=== PATIENT | female | born 1945 | race Caucasian/White ===

== ENCOUNTER → 2017-07-07 15:30 | Outpatient (CLI) | payer OTHER, MEDICARE, SELFPAY ==
--- NOTE | 2017-07-07 15:36 | XR_ITS ---
EXAM: XR lumbar spine min 4V HISTORY: ITS.REASON: low back pain ORDERING PHYSICIAN: Latricia Pepe PATIENT AGE: 72 years COMPARISON: None FINDINGS: There is mild lumbar scoliosis convex left. There is 5 mm left lateral translation of L3 on L4 with mild degenerative disc disease at L3-L4. Mild facet arthritic changes are present at L4-5 and L5-S1. The SI joints have an unremarkable appearance. No fracture or dislocation. No lytic or blastic change. IMPRESSION: Lumbar scoliosis with degenerative disc disease at L3-L4 mild facet arthritic changes at L4-5 and L5-S1
--- NOTE | 2017-07-07 15:36 | XR_ITS ---
XR pelvis 1-2V HISTORY: Bilateral hip pain ITS.REASON: bilateral hip pain ORDERING PHYSICIAN: Latricia Pepe PATIENT AGE: 72 years COMPARISON: None FINDINGS: No fracture or dislocation is evident. No significant degenerative change. No lytic or blastic change. The SI joints have an unremarkable appearance. Unremarkable soft tissues. There are bilateral tubal ligation clips present IMPRESSION: Negative pelvis.
--- NOTE | 2017-07-07 15:36 | XR_ITS ---
EXAM: XR cervical spine min 6V HISTORY: ITS.REASON: neck pain ORDERING PHYSICIAN: Latricia Pepe PATIENT AGE: 72 years COMPARISON: None FINDINGS: Normal alignment. No fracture or dislocation. No lytic or blastic change. Degenerative disc disease is present at C2-C3, C3-C4, C4-C5, and C5-C6 and to a lesser degree at C6-C7. Mild uncovertebral hypertrophy is present with mild foraminal narrowing on the right at C5-C6 and on the left at C3-C4. IMPRESSION: Cervical spondylosis with multilevel degenerative disc disease and uncovertebral hypertrophy as described above
== END ==
PROVIDERS: PCP Nurse Practitioner Family; Visit Provider Nurse Practitioner Family
DX: M54.2 Cervicalgia (principal); R10.2 Pelvic and perineal pain; M54.5 Low back pain
CPT/HCPCS: 72052; 72110; 72170

== ENCOUNTER → 2017-10-20 10:37 | Outpatient (CLI) | payer MEDICARE, SELFPAY ==
[2017-10-20 12:19] LABS: Alanine Aminotransferase 51 U/L (12-78); Albumin Level 3.6 gm/dL (3.4-5.0); Albumin/Globulin Ratio 1.1 (1.1-1.8); Alkaline Phosphatase 95 U/L (46-116); Anion Gap 12.5 mEq/L (5-15); Aspartate Amino Transferase 32 U/L (15-37); Bilirubin,Total 0.4 mg/dL (0.2-1.0); Blood Urea Nitrogen 16 mg/dL (7-18); Calcium 9.6 mg/dL (8.5-10.1); Carbon Dioxide 27 mmol/L (21.0-32.0); Chloride 107 mmol/L (98-107); Chol/HDL Ratio 5.7 (1-3.5); Cholesterol 226 mg/dL (140-200); Creatinine,Serum 0.87 mg/dL (0.55-1.02); Estimated Glomerular Filt Rate 64 ml/min (>60); GFR (African American) 78 ML/MIN (>60); Globulin 3.4 gm/dl (1.3-3.2); Glucose 95 mg/dL (74-106); HDL Cholesterol 40 mg/dL (29-89); LDL Cholesterol 150 mg/dL (0-130); Potassium 4.5 mmoL/L (3.5-5.1); Sodium 142 mmol/L (136-145); Thyroid Stimulating Hormone 1.52 uIU/ml (0.358-3.740); Triglycerides 180 mg/dL (30-200); VLDL Cholesterol 36 mg/dL (0-40)
== END ==
PROVIDERS: Visit Provider Family Medicine
DX: E78.5 Hyperlipidemia, unspecified (principal); E03.9 Hypothyroidism, unspecified
CPT/HCPCS: 36415; 80053; 80061; 84443

== ENCOUNTER → 2018-03-02 15:32 | Outpatient (CLI) | payer MEDICARE, SELFPAY ==
--- NOTE | 2018-03-02 15:36 | XR_ITS ---
XR chest 2V HISTORY: ITS.REASON: COUGH ORDERING PHYSICIAN: Tyson Sanchez MD PATIENT AGE: 72 years COMPARISON: 06/25/2016 FINDINGS: The cardiomediastinal silhouette and pulmonary vascularity are within normal limits. The lungs are clear without infiltrates, suspicious nodules, or pleural effusions. There is mild thoracic scoliosis convex right of lumbar scoliosis convex left. . No acute bony anomalies. Degenerative changes are present in the upper thoracic spine. IMPRESSION: No acute finding
== END ==
PROVIDERS: PCP Family Medicine; Visit Provider Family Medicine
DX: R05 Cough (principal)
CPT/HCPCS: 71046

== ENCOUNTER → 2018-03-30 12:42 | Outpatient (CLI) | payer MEDICARE, SELFPAY ==
--- NOTE | 2018-03-30 | XR_ITS ---
XR shoulder LT min 2V HISTORY: ITS.REASON: LEFT SHOULDER PAIN ORDERING PHYSICIAN: Tyson Sanchez MD PATIENT AGE: 72 years Comparison: None FINDINGS: No fracture or dislocation. No lytic or blastic change. There is normal mineralization. The joint spaces are well-preserved. No significant degenerative/arthritic changes. No erosive changes evident. IMPRESSION: Negative, no acute finding
== END ==
PROVIDERS: PCP Family Medicine; Visit Provider Family Medicine
DX: M25.512 Pain in left shoulder (principal)
CPT/HCPCS: 73030

== ENCOUNTER → 2018-04-23 16:39 | Outpatient (CLI) | payer MEDICARE, SELFPAY ==
--- NOTE | 2018-04-23 16:45 | XR_ITS ---
EXAM: XR cervical spine 5V HISTORY: Neck pain with limited range of motion ITS.REASON: pain in left shoulder ORDERING PHYSICIAN: Tyson Sanchez MD PATIENT AGE: 72 years COMPARISON: None FINDINGS: Multilevel degenerative disc disease is present at C2-C7 worse at the C4 C5 C5 C6 and C6-C7 levels. There are endplate osteophytes in the lower cervical spine. There is mild foraminal narrowing on the right at C5-C6 and on the left at C5-C6. No fracture or dislocation evident. No lytic or blastic change. IMPRESSION: Cervical spondylosis with degenerative disc disease from C4 to C7 and mild foraminal narrowing bilaterally at C5-C6
== END ==
PROVIDERS: PCP Family Medicine; Visit Provider Family Medicine
DX: M54.2 Cervicalgia (principal); M25.512 Pain in left shoulder
CPT/HCPCS: 72050

== ENCOUNTER 2018-05-02 14:00 | Outpatient (RCR) | payer MEDICARE, SELFPAY ==
--- NOTE | 2018-04-26 14:17 | HMH.OTOPEV ---
OT Inpatient Evaluation Rehab OT Outpatient Eval Start: 04/26/18 13:54 Freq: Status: Active Protocol: Document 04/26/18 13:54 RMARSHALZunilda (Rec: 04/26/18 14:[address] [facility] [id number]) Electronically Signed By Umm Bhandari OT 04/26/18 13:54 Outpatient Therapy Subjective History Subjective History Pt is a 72 year old female who reports to therapy for initial evaluation to left shoulder. Pt reports on January 11, 2018 she fell down a flight of steps on her house boat and landed on her left side. Since this accident she has had pain consistently at the left shoulder. Pt also reports having pain in the neck and believes she may have injured the neck in the fall as well. Pt recently had x-rays completed of the neck and is waiting her doctor to call her back for the results. Pt does demonstrate with decreased AROM and strength of left shoulder. Pt will continue to be seen twice a week in order to address these deficits. Chief Complaint Pain Stiff Weakness Symptom Type Ache Throb Sharp Dull Symptoms Relieved By Nothing Symptoms Aggravated By Physical Activity Twisting Lifting Prior Functional Limitations None Current Functional Limitations Reaching Lifting Housework Dressing Driving Sleeping Recreation Activity Symptom Description Constant but Variable Level of pain today (0-10) 3 Pain scale - at its best (0-10) 3 Pain scale - at its worst (0-10) 9 Shoulder/Elbow Eval Shoulder Objective Measurements Shoulder ROM Left Shoulder ROM Limitations Pain Shoulder Abduction Active Range of 60 degrees Motion (degrees) Shoulder Flexion Active Range of Motion 127 degrees (degrees
== END 2018-05-02 14:05 | disposition home or self-care (01) ==
LOC: OT 14:00
PROVIDERS: Visit Provider Family Medicine
DX: M25.512 Pain in left shoulder (principal); M77.9 Enthesopathy, unspecified; M75.52 Bursitis of left shoulder
CPT/HCPCS: 97014; 97110; 97165; G0283

== ENCOUNTER → 2018-10-19 16:56 | Outpatient (CLI) | payer MEDICARE, SELFPAY ==
--- NOTE | 2018-10-19 16:59 | MM_ITS ---
MM Dig screening mamm BI w/CAD ORDERING PHYSICIAN : Tyson Sanchez MD PATIENT AGE: 73 years GENDER: Female COMPARISON: March [id number] INDICATION: ITS.Routine screening mammogram..no hormones. Hysterectomy. Benign left surgical excisional biopsy Family history niece breast cancer age 34 TECHNIQUE: Standard CC and MLO images were obtained. R2 CAD reviewed. Additional MLO nipple profile views bilateral FINDINGS: Mild to moderate residual fibroglandular elements scattered throughout throughout the breast are most notable towards upper outer quadrant bilaterally. RIGHT BREAST:No new areas of significant concern. Areas of minimal nodularity again noted appear recently stable when compared to February 2011 bilateral follow-up one year recommended LEFT BREAST:No significant new findings.:. Follow-up in one year. IMPRESSION: ...... No new areas of significant concern either breast. Stable minor asymmetry. Adequate Stable appearance to minor areas of nodularity bilaterally. Bilateral follow-up in one year recommended. BI-RADS Category: 2 Benign Finding(s) RECOMMENDED FOLLOW-UP: 1YR 1 YEAR FOLLOW-UP (A letter has been sent to the patient regarding results of the study.)
== END ==
PROVIDERS: PCP Family Medicine; Visit Provider Family Medicine
DX: Z12.31 Encounter for screening mammogram for malignant neoplasm of breast (principal)
CPT/HCPCS: 77067

== ENCOUNTER → 2018-11-28 15:15 | Outpatient (CLI) | payer MEDICARE, SELFPAY ==
--- NOTE | 2018-11-28 | CA_ITS ---
PROCEDURE: 2-D M-mode and color Doppler study INDICATIONS FOR THE TEST: Chest pain COPD Heart Murmur Tobacco Smoking Palpitations Fatigue Syncope Edema Hypertension Diabetes Mellitus Rheumatic Fever SOBXDOE Obesity Hyperlipidemia Family History HD Additional History PATIENT INFORMATION HEIGHT: 64 WEIGHT:155 GENDER: Female B/P:130/90 2-D/M-MODE INTERPRETATION: 2-D MEASUREMENTS OBSERVED VALUES IN CMS Right Ventricular Dimension (RVDd) 2.2 Interventricular Septum (Thickness)(IVsd) .8 Left Ventricular Internal Dimensions(LVIDd) 4.8 Left Ventricular Posterior Wall (Thickness)(LVPWd) .8 Aortic Root 3.3 Aortic Cusp Separation 1.8 Left Atrial Dimensions (LAD) 3.3 2D 1. Left atrium is normal size, left ventricle is normal size, left ventricle wall thickness is upper limit of the normal, there is preserved left ventricular systolic function, visually estimated ejection fraction 55% with no regional wall motion abnormality. 2. The right atrium and right ventricle are mildly enlarged with normal contractility. 3. The aortic valve is minimally thickened and fibrosed. 4. The mitral and tricuspid valvular grossly normal. 5. The pulmonic valve is poorly visualized. 6. No significant pericardial effusion noted. DOPPLER INTERROGATION: Doppler interrogation of the aortic, mitral and tricuspid valvular presence of mild mitral and tricuspid regurgitation, tricuspid regurgitation jet velocity is inadequate for calculation of the right ventricular systolic pressure, grade 1 diastolic dysfunction seen without tissue Doppler evidence of raised left atrial pressure. CONCLUSION: 1. Normal left ventricular size, visually estimated ejection fraction 55% with no regional wall motion abnormality. Grade 1 diastolic dysfunction seen without tissue Doppler evidence of raised left atrial pressure. 2. Mildly enlarged ventricle with normal contractility. 3. Mild mitral and tricuspid regurgitation 4. No significant pericardial effusion noted.
== END ==
PROVIDERS: PCP Physician Assistant; Visit Provider Physician Assistant
DX: R06.02 Shortness of breath (principal)
CPT/HCPCS: 93306

== ENCOUNTER → 2018-12-09 12:41 | Outpatient (CLI) | payer MEDICARE, SELFPAY ==
[2018-12-09 13:14] LABS: Blood Urea Nitrogen 22 mg/dL (7-18); Creatinine,Serum 1.06 mg/dL (0.55-1.02); Estimated Glomerular Filt Rate 51 ml/min (>60); GFR (African American) 62 ML/MIN (>60)
--- NOTE | 2018-12-09 13:46 | CT_ITS ---
CT angio chest COMPARISON: None HISTORY: Mid chest pain and some shortness of breath TECHNIQUE: Multiple axial scans obtained from the thoracic inlet the hemidiaphragms after rapid injection of 70 mL of Optiray 350. Sagittal and coronal reformats were evaluated as well. FINDINGS: The lung talbot are well expanded. There is excellent vascular opacification. There is no CT evidence of pulmonary emboli. There is no abnormal superior mediastinal or hilar lymphadenopathy. Cardiac size is normal. There is no evidence of aortic dissection. Lung windows show the lung talbot be clear of infiltrate. There is no pleural fluid. There are mild multilevel degenerative changes of the thoracic spine. IMPRESSION: Negative for PE
== END ==
PROVIDERS: PCP Family Medicine; Visit Provider Internal Medicine Cardiovascular Disease
DX: R00.0 Tachycardia, unspecified (principal); R06.00 Dyspnea, unspecified; R07.9 Chest pain, unspecified; R53.83 Other fatigue; R60.9 Edema, unspecified; R93.1 Abnormal findings on diagnostic imaging of heart and coronary circulation; R94.31 Abnormal electrocardiogram [ECG] [EKG]; R06.09 Other forms of dyspnea; R60.0 Localized edema
CPT/HCPCS: 36415; 71275; 82565; 83880; 84520; Q9967

== ENCOUNTER → 2018-12-19 07:20 | Outpatient (CLI) | payer MEDICARE, SELFPAY ==
--- NOTE | 2018-12-19 07:31 | NM_ITS ---
History:Chest pain, SOB, Palpitations, Fatigue, Family history, Abnormal ECHO Procedure: Patient exercised on Khang protocol 7 minutes, resting heart rate 65 bpm, resting blood pressure 124/60, with exercise maximum heart rate achieve was 114 bpm which is less than 85 % of the maximum predicted heart rate and blood pressure was 140/80. Test was stopped due to shortness of breath, patient denied any complained of chest pain. Patient has adequate exercise capacity achieved 7.7 mets of workload on treadmill, the blood pressure response to exercise was adequate. Patient did not achieve the target heart rate Electrocardiogram: Resting electrocardiogram showed sinus rhythm, with exercise there is less than 1.5mm ST segment depression noted from the baseline EKG. The EKG portion of the exercise Myoview is nondiagnostic as patient did not achieve the target heart rate. Cardias Stress and Resting SPECT images: Cardias Stress and Resting SPECT images were obtained using technetium 99m Myoview 29.7 mCi stress and 9.95 mCi at rest. Gated SPECT further analysis of segmental wall motion and calculation of ejection fraction also done. Cardiac stress and resting SPECT show uniform myocardial activity without segmental perfusion abnormality, the computer derived ejection fraction is over 65% with no regional wall motion abnormality, right ventricle is normal size and contractility. Conclusion: 1. The EKG portion of the exercise Myoview is nondiagnostic as patient didn't achieve the target heart rate, patient has adequate exercise capacity achieved 7.7mets of workload on treadmill the blood pressure response to exercise was adequat. 2. No scintigraphic evidence of reversible ischemia seen, computer derived ejection fraction is over 65% with no regional wall motion abnormality. Right ventricle is normal size and contractility.
--- NOTE | 2018-12-19 07:45 | HMH.ITSHM ---
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 []LEVOTHYROXINE CETIRIZINE VALIUM METOPROLOL PREVACID VITAMIN D3
== END ==
PROVIDERS: PCP Family Medicine; Visit Provider Internal Medicine Cardiovascular Disease
DX: R00.0 Tachycardia, unspecified (principal); R06.00 Dyspnea, unspecified; R07.9 Chest pain, unspecified; R53.83 Other fatigue; R60.9 Edema, unspecified; R93.1 Abnormal findings on diagnostic imaging of heart and coronary circulation; R94.31 Abnormal electrocardiogram [ECG] [EKG]
CPT/HCPCS: 78452; 93017; A9502

== ENCOUNTER 2018-12-30 01:08 | Observation (INO) ==
--- NOTE | 2018-12-30 01:15 | Emergency Department Note ---
ED Disposition Clinical Impression: Headache Qualifiers: Headache type: unspecified Headache chronicity pattern: acute headache Intractability: intractable Qualified Code(s): R51 - Headache Disposition: Admitted as Observation Condition on Discharge: Fair Referrals: Tyson Sanchez MD [Primary Care Provider] - - Critical Care Critical Care Time: No Attestation: On , the high probability of a clinically significant, sudden or life threatening deterioration of the following system(s) required my full and direct attention, intervention and personal management. The time I documented below is in addition to time spent performing reported procedures but includes the following listed in this critical care notation. Medical Decision Making - Scooter Inquiry Pt receiving controlled substance: Yes Scooter was queried for this patient: Yes Reference #:: [id number] Risks and benefits of using a controlled substance: were not discussed with pt by me Comment: 6 rxs for diazepam Vital Signs: 12/30/18 01:20 Temperature 97.9 F Temperature Source Oral Pulse Rate [Right Radial] 68 Respiratory Rate 18 Blood Pressure [Right Arm] 140/81 Blood Pressure Mean [Right Arm] 100 02 Sat by Pulse Oximetry 98 - Lab Data Lab Results 12/30/18 01:25: WBC 7.3, RBC 4.97, Hgb 12.9, Hct 42.1, MCV 84.7, MCH 26.1 L, MCHC 30.8 L, RDW 13.5, Plt Count 354, MPV 7.6, Neut % (Auto) 51.0, Lymph % (Auto) 38.2, [place] % (Auto) 6.7, Eos % (Auto) 3.4, Baso % (Auto) 0.7, Neut # (Auto) 3.7, Lymph # (Auto) 2.8, [place] # (Auto) 0.5, Eos # (Auto) 0.3, Baso # (Auto) 0.1 12/30/18 01:25: Sodium 142, Potassium 4.0, Chloride 107, Carbon Dioxide 25, Anion Gap 14.0, BUN 16, Creatinine 1.05 H, Estimated Creat Clear 55, Estimated GFR 52 L, Est GFR ( Amer) 63, Glucose 101, Calcium 8.8, Total Bilirubin 0.3, AST 26, ALT 45, Alkaline Phosphatase 76, Total Protein 6.3 L, Albumin 3.1 L , Globulin 3.2, Albumin/Globulin Ratio 1.0 L Result diagrams: 12/30/18 01:25 12/30/18 01:25 Orders (Tests/Meds): ED MEDICATIONS Generic Name Dose Route Start Last Admin Trade Name Freq PRN Reason Stop Dose Admin Sodium Chloride 1,000 mls @ 999 mls/hr 12/30/18 01:30 12/30/18 01:29 Sod Chlor 0.9% 1000ml Bag IV 12/30/18 02:30 999 mls/hr .Q1H1M SIMIN Administration Discontinued Medications Generic Name Dose Route Start Last Admin Trade Name Freq PRN Reason Stop Dose Admin Butorphanol Tartrate 0.5 mg 12/30/18 02:14 12/30/18 02:24 Stadol 1mg/1ml Vial IV 12/30/18 02:15 0.5 mg ONCE ONE Administration Diphenhydramine HCl 25 mg 12/30/18 02:14 12/30/18 02:24 Benadryl 50mg/1ml Vial IV 12/30/18 02:15 25 mg ONCE ONE Administration Ketorolac Tromethamine 30 mg 12/30/18 01:24 12/30/18 01:29 Toradol 30mg/Ml Vial IV 12/30/18 01:25 30 mg ONCE ONE Administration Ondansetron HCl 4 mg 12/30/18 01:24 12/30/18 01:29 Zofran 4mg/2ml Vial IV 12/30/18 01:25 4 mg ONCE ONE Administration Prochlorperazine Edisylate 5 mg 12/30/18 02:13 12/30/18 02:24 Compazine 10mg/2ml Vial IV 12/30/18 02:14 5 mg ONCE ONE Administration ORDERS Category Date Time Status CT head/brain wo con Stat Cat Scan 12/30/18 01:24 Taken - CT Data CT Scan: Head Time Received: 02:[address] Reviewed: Yes: I have viewed the radiologist's interpretation Findings Narrative: CT scan interpreted by [facility] radiologist. Faxed report received and reviewed: No acute intracranial abnormality - Physician Consults Physician Consulted: Jerrod Sanchez Time: 04:52 Reason -: Admission Comment/Response: Agrees to admit the patient to the hospital. We discussed the patient's clinical information, including history, exam, laboratory and radiology results and ED course. Per hospital procedure, I will write temporary bridge inpatient orders on the patient. Specific orders requested by the admitting physician: Admit for observation, pain control, IV fluids - Reevaluation(s) Time: 03:16 Reevaluation #1: sleeping Time: 03:45 Reevaluation #3: sleeping, when awakened states al improved, but still present. nausea better. wants to rest another hour to see if she feels better. Time reevaluation 3: 04:45 Reevaluation #2: sleeping, when awakened states headache is 5/10. Medical Decision Narrative: Heart cath: ANGIOGRAPHIC RESULTS: 1. The left main artery normal 2. The left anterior descending artery has proximal 10% stenoses mid vessel 30-40% tandem stenoses 3. The circumflex artery nondominant and has a mid vessel 30-40% stenosis 4. The right coronary artery is a dominant vessel and has a mid vessel 30% stenosis 5. The TRACY ventriculogram reveals normal 65% 6. The left ventricular end-diastolic pressure 10 mmHg IMPRESSION: 1. Moderate coronary disease in the mid LAD and mid circumflex artery as well as mid dominant right coronary 2. Normal ejection fraction 3. Normal left ventricular end-diastolic pressure PLAN: 1. Aggressive risk factor modification 2. LDL less than 55 3. Avoidance of tobacco products 4. Standard therapy for ischemic heart disease Dictated By: Jagjit Lawson MD 12/29/18 1021 Recent CTA chest: CT angio chest COMPARISON: None HISTORY: Mid chest pain and some shortness of breath TECHNIQUE: Multiple axial scans obtained from the thoracic inlet the hemidiaphragms after rapid injection of 70 mL of Optiray 350. Sagittal and coronal reformats were evaluated as well. FINDINGS: The lung talbot are well expanded. There is excellent vascular opacification. There is no CT evidence of pulmonary emboli. There is no abnormal superior mediastinal or hilar lymphadenopathy. Cardiac size is normal. There is no evidence of aortic dissection. Lung windows show the lung talbot be clear of infiltrate. There is no pleural fluid. There are mild multilevel degenerative changes of the thoracic spine. IMPRESSION: Negative for PE Dictated By: Mikel Vivar 12/09/18 1415 General Adult HPI - General Stated complaint: Headache Time Seen by Provider: 12/30/18 01:27 - History of Present Illness HPI narrative: Complains of a headache. She had a heart cath done yesterday 12/29/[address] Lawson. Since then she has been getting headaches. She said she had a couple of milder headaches earlier in the day and "he gave me something for them" got better. However, she says this when he came back with a vengeance, waking her at 12:30 AM. Nausea, but no vomiting. She says it feels better when she keeps her eyes closed, but denies photophobia when she opens her eyes. No fever. No numbness or weakness of the extremities. No loss of vision. Called Dr. Lawson who recommended excedrin. She has a prior history of migraines "years ago" but states she has not had one in quite some time and is not on any medications for migraines. She says her heart cath was performed because she has been having chest pains, shortness of breath, swelling, fatigue. States was re-started on Crestor today, had taken in the past without problems. No other new meds. - Related Data Home Medications Medication Instructions Recorded Confirmed levothyroxine 25 mcg capsule 25 mcg PO DAILY cap 07/07/17 12/30/18 cetirizine 10 mg tablet 10 mg PO DAILY #30 tab 10/07/18 12/30/18 aspirin 81 mg chewable tablet 81 mg PO DAILY 11/25/18 12/30/18 cholecalciferol (vitamin D3) 5,000 5,000 unit PO DAILY 12/09/18 12/30/18 unit capsule diazepam 10 mg tablet 2 mg PO TID PRN tab 12/09/18 12/30/18 meclizine 12.5 mg tablet 12.5 mg PO TID PRN 12/09/18 12/30/18 omeprazole 40 mg capsule,delayed 40 mg PO DAILY cap 12/09/18 12/30/18 release Metoprolol Tartrate [Lopressor 25 mg PO DAILY 12/30/18 12/30/18 25mg tablet] Rosuvastatin Calcium 5 mg PO DAILY 12/30/18 12/30/18 Allergies Allergy/AdvReac Type Severity Reaction Status Date / Time hyoscyamine Allergy Unknown I-RASH Verified 12/30/18 01:25 menthol Allergy Unknown NA-NAUSEA Verified 12/30/18 01:25 methyl salicylate Allergy Unknown NA-NAUSEA Verified 12/30/18 01:25 codeine Allergy Verified 12/30/18 01:25 [facility] History - Hepatitis A Screen Attestation statement:: This patient has been screened for Hepatitis A risk factors. I have reviewed the patient's past medical history: Yes Medical History: Reports:: Gastroesophageal Reflux Disease(GERD), Hyperlipidemia Denies:: Cancer, Diabetes Mellitus Type 1, Diabetes Mellitus Type 2, Internal Pacemaker, Lung Disease, MRSA, Seizures Other Medical History: Reports: Fibromyalgia, Hypothyroidism, Thyroid Disease, Other Other Surgeries: Yes: Cholecystectomy, Hysterectomy-Partial, Tubal Ligation, Other. No: Pacemaker Amputation: No Fractures: No - Social History Smoking Status: Never smoker Alcohol Intake: never Substance Use Type: denies use Occupational Status: unemployed Housing: house Household Members: spouse, family Family Hx:: Coronary Artery Disease, Cancer Comment: Father-CABG ROS Obtained: Yes All systems reviewed & no additional complaints - Constitutional Constitutional: Denies fever(s) - Eyes Eyes: Reports as per HPI, Denies blind spots, Denies diplopia, Denies photophobia - Cardiovascular Cardiovascular: Reports chest pain - Respiratory Respiratory: Yes dyspnea - Gastrointestinal Gastrointestingal: Reports: nausea. Denies: abdominal pain, vomiting - Neurologic Neurologic: Denies focal weakness, Reports headache(s), Denies numbness, Denies weakness Physical Exam - General General appearance: alert, in no apparent distress - Head Head exam: atraumatic, normocephalic - Eye Eye exam: Present: normal appearance, EOMI - ENT ENT exam: Present: mucous membranes moist - Neck Neck exam: Present: normal inspection, trachea midline - Chest Chest inspection: Present: normal inspection, symmetric chest wall rise - Respiratory Respiratory exam: Present: normal lung sounds bilaterally. Absent: respiratory distress - Cardiovascular Cardiovascular exam: Present: regular rate, normal rhythm, normal heart sounds - Abdominal Exam Abdominal exam: Present: soft, normal bowel sounds. Absent: distention, tenderness - Extremities Exam Extremities exam: Present: normal inspection, full ROM - Neurological Exam Neurological exam: Present: alert, oriented X3, CN II-XII intact. Absent: motor sensory deficit - Psychiatric Psychiatric exam: Present: normal affect, normal mood - Skin Skin exam: Present: warm, dry
[2018-12-30 01:36] LABS: Basophils # 0.1 K/mm3 (0-0.2); Basophils % 0.7 % (0.1-2.0); Eosinophils # 0.3 K/mm3 (0.0-0.4); Eosinophils % 3.4 % (0.1-12.0); Hematocrit 42.1 % (37.0-47.0); Hemoglobin 12.9 g/dL (12.2-16.2); Lymphocytes # 2.8 K/mm3 (0.7-4.5); Lymphocytes % 38.2 % (10-50); Mean Corpuscular HGB Conc 30.8 g/dL (31.8-35.4); Mean Corpuscular Volume 84.7 fl (81-99); Mean Platelet Volume 7.6 fl (7.4-10.4); Monocytes # 0.5 K/mm3 (0.1-1.0); Monocytes % 6.7 % (1.7-9.3); Neutrophils # 3.7 K/mm3 (1.8-7.8); Platelet Count 354 K/mm3 (142-424); Red Blood Count 4.97 M/mm3 (4.20-5.40); Red Cell Distribution Width 13.5 % (11.5-17.5); White Blood Count 7.3 K/mm3 (4.8-10.8)
[2018-12-30 01:56] LABS: Albumin Level 3.1 gm/dL (3.4-5.0); Bilirubin,Total 0.3 mg/dL (0.2-1.0); Calcium 8.8 mg/dL (8.5-10.1); Globulin 3.2 gm/dl (1.3-3.2); Total Protein,Serum 6.3 gm/dL (6.4-8.2)
--- NOTE | 2018-12-30 08:21 | Pharmacy Consult Notes ---
[facility] Pharmacy VTE Monitoring - Patient Demographics Admission date: 12/30/18 Report Date: 12/30/18 Time: 08:21 Allergies/Adverse Reactions: Patient Allergies hyoscyamine Allergy (Unknown, Verified 12/30/18 01:25) I-RASH menthol Allergy (Unknown, Verified 12/30/18 01:25) NA-NAUSEA methyl salicylate Allergy (Unknown, Verified 12/30/18 01:25) NA-NAUSEA codeine Allergy (Verified 12/30/18 01:25) Height: 1.63 m Weight: 71.299 kg Patient Problems: Current Active Problems Headache (Acute) - VTE Risk Labs: VTE Related Lab Results Hgb 12.9 g/dL (12.2-16.2) 12/30/18 01:25 Hct 42.1 % (37.0-47.0) 12/30/18 01:25 Plt Count 354 K/mm3 (142-424) 12/30/18 01:25 BUN 16 mg/dL (7-18) 12/30/18 01:25 Creatinine 1.05 mg/dL (0.55-1.02) H 12/30/18 01:25 Estimated Creat Clear 55 mL/min (50-200) 12/30/18 01:25 Was VTE Risk Assessment Performed: Yes VTE Score: 2 VTE Risk Level: Very Low Risk - Prophylaxis VTE Prophylaxis Ordered?: Yes Types of VTE Prophylaxis: TEDS Knee High Location of Applied Device: Bilateral Lower Extremeties - VTE Diagnosis Confirmed Treatment or plan recommended: Continue Current Treatment
--- NOTE | 2018-12-30 08:57 | History & Physical Report ---
*Admission Date: 12/30/18 *Chief complaint: headache *History of present illness: Ms. Freitas is a 73-year-old female who just had a heart cath yesterday. She had the heart cath due to history of having chest pain, shortness of breath, swelling, and fatigue. She had moderate coronary disease in the mid LAD and mid circumflex artery as well as the mid dominant right coronary artery and cardiology favored standard therapy for ischemic heart disease and did not place a stent. She had a normal ejection fraction. She states since the cath, she has been getting headaches. She had a few milder headaches earlier in the day yesterday and when she called Dr. Lawson's office she was told to take some Excedrin. She states this did not help and at 12:30 AM she woke up with a horrible headache all over her entire head accompanied by nausea but no vomiting. She had no numbness or weakness of her extremities and no loss of vision. She has a prior history of migraines but has not had one in quite a while. She was given a migraine cocktail in the emergency room and was admitted for further evaluation and treatment. She states since she was given a cocktail she has been sleeping. The headache does seem to be easing but is still present. [facility] History I have reviewed the patient's past medical history: Yes Medical History: Reports:: Gastroesophageal Reflux Disease(GERD), Hyperlipidemia Denies:: Cancer, Diabetes Mellitus Type 1, Diabetes Mellitus Type 2, Internal Pacemaker, Lung Disease, MRSA, Seizures *Have you ever received a pneumonia vaccine?: Yes *Have you received a flu vaccine this season?: No Other Medical History: Reports: Fibromyalgia, Hypothyroidism, Thyroid Disease, Other Other Surgeries: Yes: Cardiac Catheterization, Cholecystectomy, Hysterectomy- Partial, Tubal Ligation, Other. No: Pacemaker Amputation: No Fractures: No - *Social History Smoking Status: Never smoker Alcohol Intake: never Substance Use Type: denies use *Occupational Status:: retired Housing: house Household Members: spouse, family *Travel in the last 8 weeks: None - Psychiatric History Expresses thoughts of harming self/others: None Suicide Plan Description: No Plan Family Hx:: Cancer, Coronary Artery Disease Review of Systems - Constitutional Reports weakness, Denies fever(s) - Eyes Denies blurry vision, Denies double vision - ENT Reports nasal congestion, Denies sore throat - *Cardiovascular Reports chest pain with activity, Reports shortness of breath with activity - *Respiratory Reports shortness of breath with activity, Denies cough - *Gastrointestinal Reports nausea, Denies abdominal pain, Denies loose stools, Denies vomiting - *Genitourinary Denies difficulty urinating, Denies painful urination - *Musculoskeletal Reports joint pain (low back) - *Neurologic Reports headache(s), Reports dizziness, Denies localized weakness, Denies numbness, Denies weakness Meds Home Medications Medication Instructions Recorded Confirmed Type levothyroxine 25 mcg capsule 12.5 mcg PO DAILY cap 07/07/17 12/30/18 History aspirin 81 mg chewable tablet 81 mg PO DAILY 11/25/18 12/30/18 History cholecalciferol (vitamin D3) 5,000 5,000 unit PO DAILY 12/09/18 12/30/18 History unit capsule diazepam 10 mg tablet 2 mg PO TIDP PRN tab 12/09/18 12/30/18 History meclizine 12.5 mg tablet 12.5 mg PO TID PRN 12/09/18 12/30/18 History omeprazole 40 mg capsule,delayed 40 mg PO DAILY cap 12/09/18 12/30/18 History release Levocetirizine Dihydrochloride 5 mg PO DAILY 12/30/18 12/30/18 History [Xyzal] Metoprolol Tartrate [Lopressor 25 mg PO DAILY 12/30/18 12/30/18 History 25mg tablet] Rosuvastatin Calcium 5 mg PO HS 12/30/18 12/30/18 History Allergies Allergy/AdvReac Type Severity Reaction Status Date / Time hyoscyamine Allergy Unknown I-RASH Verified 12/30/18 01:25 menthol Allergy Unknown NA-NAUSEA Verified 12/30/18 01:25 methyl salicylate Allergy Unknown NA-NAUSEA Verified 12/30/18 01:25 codeine Allergy Verified 12/30/18 01:25 Exam Vital signs and Labs for Last 24 Hours: Temp Pulse Resp BP Pulse Ox 97.7 F 84 17 97/54 L 94 L 12/30/18 08:00 12/30/18 08:00 12/30/18 08:00 12/30/18 08:00 12/30/18 08:00 Laboratory Results - last 24 hr 12/30/18 01:25: WBC 7.3, RBC 4.97, Hgb 12.9, Hct 42.1, MCV 84.7, MCH 26.1 L, MCHC 30.8 L, RDW 13.5, Plt Count 354, MPV 7.6, Neut % (Auto) 51.0, Lymph % (Auto) 38.2, Todd % (Auto) 6.7, Eos % (Auto) 3.4, Baso % (Auto) 0.7, Neut # (Auto) 3.7, Lymph # (Auto) 2.8, Todd # (Auto) 0.5, Eos # (Auto) 0.3, Baso # (Auto) 0.1 12/30/18 01:25: Sodium 142, Potassium 4.0, Chloride 107, Carbon Dioxide 25, Anion Gap 14.0, BUN 16, Creatinine 1.05 H, Estimated Creat Clear 55, Estimated GFR 52 L, Est GFR ( Amer) 63, Glucose 101, Calcium 8.8, Total Bilirubin 0.3, AST 26, ALT 45, Alkaline Phosphatase 76, Total Protein 6.3 L, Albumin 3.1 L , Globulin 3.2, Albumin/Globulin Ratio 1.0 L I & O for Last 24 hours: Intake & Output 12/27/18 12/28/18 12/29/18 12/30/18 11:59 11:59 11:59 11:59 Weight 157 lb 3 oz - Constitutional no acute distress - *Routine HEENT Exam Head: Present: normocephalic Eye: Present: EOMI, PERRL ENT: Present: mucous membranes dry - *Routine Neck Exam Present: supple. Absent: lymphadenopathy - *Routine Respiratory Exam Present: CTA bilaterally - *Routine Cardiovascular Exam Present: RRR - *Routine Abdominal Exam Present: soft, normoactive bowel sounds. Absent: tenderness - *Routine Extremities Exam Absent: cyanosis, clubbing, edema - *Routine Skin Exam Present: warm. Absent: rash - *Routine Neurological Exam Present: alert, oriented X3, CN II-XII intact. Absent: sensory deficit, motor deficit H&P: Result - Impressions Head CT Negative CT head without contrast. No acute finding Assessment and Plan (1) Headache Current visit: Yes Status: Acute Qualifiers: Headache type: unspecified Headache chronicity pattern: acute headache Intractability: intractable Qualified Code(s): R51 - Headache Category: Medical Code(s): R51 - Headache (2) Fibromyalgia Current visit: Yes Status: Chronic Category: Medical Code(s): M79.7 - Fibromyalgia (3) Hyperlipidemia Current visit: Yes Status: Chronic Category: Medical Code(s): E78.5 - Hyperlipidemia, unspecified (4) Coronary artery disease Current visit: Yes Status: Chronic Category: Medical Code(s): I25.10 - Atherosclerotic heart disease of [place] coronary artery without angina pectoris (5) Chest pain Current visit: No Status: Acute Qualifiers: Chest pain type: unspecified Qualified Code(s): R07.9 - Chest pain, unspecified Category: Medical Code(s): R07.9 - Chest pain, unspecified (6) Family history of coronary artery disease Current visit: No Status: Chronic Category: Medical Code(s): Z82.49 - Family history of ischemic heart disease and other diseases of the circulatory system (7) Fatigue Current visit: No Status: Acute Qualifiers: Fatigue type: unspecified Qualified Code(s): R53.83 - Other fatigue Category: Medical Code(s): R53.83 - Other fatigue (8) HTN (hypertension) Current visit: No Status: Chronic Qualifiers: Hypertension type: essential hypertension Qualified Code(s): I10 - Essential (primary) hypertension Category: Medical Code(s): I10 - Essential (primary) hypertension - Assessment and plan all Dx Assessment and Plan for all problems:: The migraine cocktail seems to be helping slightly, although the patient still has a headache. May need to add some steroids. Will discuss with Dr. haq.
--- NOTE | 2019-01-02 21:00 | Discharge Summary ---
General - General Admission date:: 12/30/18 Discharge date: 12/30/18 HPI HPI: Ms. Freitas is a 73-year-old female who just had a heart cath yesterday. She had the heart cath due to history of having chest pain, shortness of breath, swelling, and fatigue. She had moderate coronary disease in the mid LAD and mid circumflex artery as well as the mid dominant right coronary artery and cardiology favored standard therapy for ischemic heart disease and did not place a stent. She had a normal ejection fraction. She states since the cath, she has been getting headaches. She had a few milder headaches earlier in the day yesterday and when she called Dr. Lawson's office she was told to take some Excedrin. She states this did not help and at 12:30 AM she woke up with a horrible headache all over her entire head accompanied by nausea but no vomi ting. She had no numbness or weakness of her extremities and no loss of vision. She has a prior history of migraines but has not had one in quite a while. She was given a migraine cocktail in the emergency room and was admitted for further evaluation and treatment. She states since she was given a cocktail she has been sleeping. The headache does seem to be easing but is still present. Hospital Course Hospital Course: The patient's head CT showed nothing acute. Her labs were relatively unremarkable other than a slightly elevated creatinine. The migraine cocktail given in the emergency room seem to help and the patient's headache eased. She slept most of the next day. There was no neurologic deficit. She did stabilize and was felt to be able to be discharged. Objective Vital signs: Temp Pulse Resp BP Pulse Ox 97.8 F 76 17 105/66 L 94 L 12/30/18 15:48 12/30/18 15:48 12/30/18 15:48 12/30/18 15:48 12/30/18 15:48 Narrative: - Constitutional no acute distress - *Routine HEENT Exam Head: Present: normocephalic Eye: Present: EOMI, PERRL ENT: Present: mucous membranes dry - *Routine Neck Exam Present: supple. Absent: lymphadenopathy - *Routine Respiratory Exam Present: CTA bilaterally - *Routine Cardiovascular Exam Present: RRR - *Routine Abdominal Exam Present: soft, normoactive bowel sounds. Absent: tenderness - *Routine Extremities Exam Absent: cyanosis, clubbing, edema - *Routine Skin Exam Present: warm. Absent: rash - *Routine Neurological Exam Present: alert, oriented X3, CN II-XII intact. Absent: sensory deficit, motor deficit DS: Diagnosis - Discharge Diagnosis (1) Headache Status: Acute (2) Fibromyalgia Status: Chronic (3) Hyperlipidemia Status: Chronic (4) Coronary artery disease Status: Chronic (5) Chest pain Status: Acute (6) Family history of coronary artery disease Status: Chronic (7) Fatigue Status: Acute (8) HTN (hypertension) Status: Chronic Discharge Plan - Patient Discharge Instructions ACTIVITY: Limited activity DIET: continue same diet Patient Instructions: Migraine -- Adult, Heart-Healthy Diet, DI for Migraine, DI for Headache, Low-Sodium Diet - Follow up Plan Follow up with: Tyson Sanchez MD [Primary Care Provider] - Disposition: Home, Self-Half-Way Medications: Home Medications Medication Instructions Recorded Confirmed Type levothyroxine 25 mcg capsule 12.5 mcg PO DAILY cap 07/07/17 12/30/18 History aspirin 81 mg chewable tablet 81 mg PO DAILY 11/25/18 12/30/18 History cholecalciferol (vitamin D3) 5,000 5,000 unit PO DAILY 12/09/18 12/30/18 History unit capsule diazepam 10 mg tablet 2 mg PO TIDP PRN tab 12/09/18 12/30/18 History meclizine 12.5 mg tablet 12.5 mg PO TID PRN 12/09/18 12/30/18 History omeprazole 40 mg capsule,delayed 40 mg PO DAILY cap 12/09/18 12/30/18 History release Acetaminophen [Acetaminophen 325mg 650 mg PO Q4HP PRN tab 12/30/18 Rx tab] Ibuprofen [Ibuprofen 600mg 600 mg PO QIDP PRN #60 tab 12/30/18 Rx Tablet] Levocetirizine Dihydrochloride 5 mg PO DAILY 12/30/18 12/30/18 History [Xyzal] Metoprolol Tartrate [Lopressor 25 mg PO DAILY 12/30/18 12/30/18 History 25mg tablet] Rosuvastatin Calcium 5 mg PO HS 12/30/18 12/30/18 History Prescriptions/Medication Reconciliation: New Acetaminophen [Acetaminophen 325mg tab] 650 mg PO Q4HP PRN tab PRN Reason: As Needed For Fever Or Pain Ibuprofen [Ibuprofen 600mg Tablet] 600 mg PO QIDP PRN #60 tab PRN Reason: Headache Continued aspirin 81 mg chewable tablet 81 mg PO DAILY omeprazole 40 mg capsule,delayed release 40 mg PO DAILY cap meclizine 12.5 mg tablet 12.5 mg PO TID PRN PRN Reason: Dizziness diazepam 10 mg tablet 2 mg PO TIDP PRN tab PRN Reason: Sleep cholecalciferol (vitamin D3) 5,000 unit capsule 5,000 unit PO DAILY levothyroxine 25 mcg capsule 12.5 mcg PO DAILY cap Levocetirizine Dihydrochloride [Xyzal] 5 mg PO DAILY Rosuvastatin Calcium 5 mg PO HS Metoprolol Tartrate [Lopressor 25mg tablet] 25 mg PO DAILY
== END 2018-12-30 16:25 | disposition home or self-care (01) ==
LOC: 2ND 01:08 → ER 01:08 → 2ND 05:39
PROVIDERS: ADMIT Family Medicine; ATTEND Family Medicine
DX: Z82.49 Family history of ischemic heart disease and other diseases of the circulatory system; I10 Essential (primary) hypertension; Z79.899 Other long term (current) drug therapy; R51 Headache; E78.5 Hyperlipidemia, unspecified; I25.10 Atherosclerotic heart disease of native coronary artery without angina pectoris; R53.83 Other fatigue; M79.7 Fibromyalgia
CPT/HCPCS: 70450; 80053; 85025; 96365; 96375; 99283; G0378; J0595; J2405

== ENCOUNTER → 2019-07-12 12:14 | Outpatient (CLI) | payer MEDICARE, SELFPAY ==
[2019-07-12 13:56] LABS: Alanine Aminotransferase 54 U/L (9-52); Albumin Level 3.7 g/dL (3.4-5.0); Alkaline Phosphatase 84 U/L (46-116); Aspartate Amino Transferase 39 U/L (15-37); Bilirubin,Direct 0.1 mg/dL (0.0-0.2); Bilirubin,Indirect 0.2 mg/dL (0.0-0.9); Bilirubin,Total 0.3 mg/dL (0.2-1.0); Chol/HDL Ratio 4.4 (1-3.5); Cholesterol 154 mg/dL (140-200); HDL Cholesterol 35 mg/dL (29-89); LDL Cholesterol 83 mg/dL (0-130); Total Protein,Serum 6.8 g/dL (6.4-8.2); Triglycerides 180 mg/dL (30-200); VLDL Cholesterol 36 mg/dL (0-40)
== END ==
PROVIDERS: Visit Provider Urology
DX: E78.5 Hyperlipidemia, unspecified (principal); I10 Essential (primary) hypertension; I25.10 Atherosclerotic heart disease of native coronary artery without angina pectoris
CPT/HCPCS: 36415; 80061; 80076

== ENCOUNTER → 2019-07-13 14:02 | Outpatient (CLI) | payer MEDICARE, SELFPAY ==
--- NOTE | 2019-07-13 14:06 | MR_ITS ---
PROCEDURE: MR SHOULDER LT WO CON CLINICAL INDICATION: PAIN IN LEFT SHOULDER Left shoulder pain, limited range of motion, fall with injury and pain COMPARISON: SHOULDCMLT XR shoulder LT min 2V from 03/30/2018 TECHNIQUE: Routine multiplanar multi echo sequences are performed without gadolinium enhancement. FINDINGS: There is acromioclavicular arthropathy with subacromial stenosis. Hypertrophic changes involve the AC joint and are causing some impingement upon the supraspinatus tendon. There is some increased T2 signal involving the undersurface and distal aspect of the supraspinatus tendon consistent with a partial tear. A full-thickness or complete tear is not felt to be present. The infraspinatus, subscapularis, and teres minor tendons appear intact. No obvious labral tear. Bicipital tendon is in place. There is some mild thickening of the subscapularis tendon with some increased T2 signal suggesting tendinopathy/tendinosis. There is a small amount of fluid in the sub coracoid region consistent with mild bursitis IMPRESSION: 1. Acromioclavicular arthropathy with subacromial stenosis with some impingement upon the supraspinatus tendon. 2. Partial tear of the undersurface of the supraspinatus tendon distally. Dictated by: Mike Shay MD 07/14/2019 16:22 Electronically signed by Mike Shay MD in [place] 07/14/2019 16:22
== END ==
PROVIDERS: PCP Family Medicine; Visit Provider Family Medicine
DX: M25.512 Pain in left shoulder (principal)
CPT/HCPCS: 73221

== ENCOUNTER 2019-09-21 15:00 | Outpatient (RCR) | payer MEDICARE, SELFPAY ==
--- NOTE | 2019-07-25 12:28 | HMH.PTOPEV ---
PT Outpatient Evaluation Rehab PT Outpatient Evaluation Start: 07/25/19 11:16 Freq: Status: Active Protocol: Document 07/25/19 11:56 MIMALUCILLE (Rec: 07/25/19 12:28 [email or web address] [id number]) Electronically Signed By Sal Valdez, PT 07/25/19 11:56 Outpatient Therapy Subjective History Subjective History Patient is a 74 year old female presenting to outpatient PT with reports of L shoulder pain starting 2017 after a fall on her house[place]. Most recent diagnostics indicate L shoulder ACJ arthropathy, subacromial stenosis and partial rotator cuff tear. Symptoms have progressively gotten worse over the past 3 months. She is currently taking Gabapentin which is providing minimal relief. Comorbidities include OA. Chief Complaint Pain,Stiff Symptom Type Ache,Sharp,Dull,Shooting Symptoms Relieved By Rest/Positioning,Prescription Meds Symptoms Aggravated By Physical Activity,Lifting Prior Functional Limitations None Current Functional Limitations Reaching,Lifting,Housework, Dressing,Driving,Sleeping, Recreation Activity Symptom Description Constant but Variable Level of pain today (0-10) 2 Pain scale - at its best (0-10) 2 Pain scale - at its worst (0-10) 10 Shoulder/Elbow Eval Shoulder Objective Measurements Palpation Tenderness tenderness shoulder exam standard left Shoulder Palpation Findings Tenderness Shoulder Palpation Overall Comment L supraspinatus, upper trap Posture Shoulder Posture Sitting Position (L) Forward,(R) Forward Flexibilty Deficits Pectoralis Minor Muscle Length (R) Moderate Tightness,(L) Moderate Tightness Supraspinatus Muscle Length (L) Mild Tightness Teres Major Muscle Length (L) Mild Tightness Shoulder ROM Left Shoulder Abduction Active Range of 65 Motion (degrees) Shoulder Flexion Active Range of Motion 100 (degrees) Query Text: Shoulder External Rotation Active Range 48 of Motion (degrees) Shoulder Internal Rotation Active Range 60 of Motion (degrees) Right full ROM shoulder exam standard left Shoulder MMT Left Shoulder Abduction Strength Grade 3+ Fair+ Shoulder Extension Strength Grade 3+ Fair+ Shoulder Flexion Strength Grade
--- NOTE | 2019-08-30 11:47 | HMH.RHREAS ---
Rehab Reassessment Rehab OP Re-assessment Start: 08/30/19 11:36 Freq: Status: Active Protocol: Document 08/30/19 11:36 MERARI (Rec: 08/30/19 11:46 MERARI [id number]) Electronically Signed By Sal Valdez, PT 08/30/19 11:36 Rehab Re-assessment Subjective Subjective Pt reports 50% improvement since start of care. Objective Objective Notes AROM: -cervical: flx 57; ext 30; SBr 32; SBl 42; Rr 48; Rl 50 -Shoulder: flx 80; abd 82; ER 55; IR 42 -PROM: flx 124; abd 108; ER 84 ; IR 48 MMT: L shoulder flx/abd 3+/5; ER 4-/5; IR 4/5; bicep 4/5; tricep 4-/5 Neuro: WNL Special test: james'smarley hawkins ankit + Pain: current 2/10; at worst over past week 6/10 Assessment Progress Assessment Slower Than Expected Assessment Notes Suspect questionable compliance with HEP. Pt continues to have intermittent exacerbations with increased activity levels. AROM/PROM has improved since start of care, but current exacerbation today results in limited measures. She continues to have significantly limited AROM compared to PROM indicating stability/motor control inssues. She continues to demonstrate fear avoidance with all reaching/ lifting activities. These issues continue to result in functional limitations with all household, recreational and ADL activites. Patient goals met STG 2 Goals Not Met All others Revised Goals NA Plan Plan Continue with POC Frequency of Therapy 2x/week Duration of therapy 4 weeks Time and Billing Re-Eval Time 15 Re-Eval Billing Units 1 PHYSICIAN CERTIFICATION: I certify the specified therapy services for Shu Freitas are required, author
== END 2019-09-21 15:05 | disposition home or self-care (01) ==
LOC: PT 15:00
PROVIDERS: PCP Family Medicine; Visit Provider Family Medicine
DX: M19.012 Primary osteoarthritis, left shoulder (principal)
CPT/HCPCS: 97010; 97014; 97033; 97035; 97110; 97140; 97163; 97164; G0283

== ENCOUNTER → 2019-10-03 13:14 | Outpatient (CLI) | payer MEDICARE, SELFPAY ==
--- NOTE | 2019-10-03 13:22 | XR_ITS ---
PROCEDURE: XR SHOULDER LT MIN 2V CLINICAL INDICATION: left shoulder pain COMPARISON: SHOU3R [id number] VIEWS from 04/29/2015 SHOULDCMLT XR shoulder LT min 2V from 03/30/2018 FINDINGS: Minimal osteoarthritic changes are present at the acromioclavicular joint. The glenohumeral joint has an unremarkable appearance. No fracture or dislocation. No lytic blastic change. IMPRESSION: Minimal osteoarthritis Dictated by: Mike Shay MD 10/03/2019 14:07 Electronically signed by Mike Shay MD in [place] 10/03/2019 14:07
== END ==
PROVIDERS: PCP Family Medicine; Visit Provider Orthopaedic Surgery
DX: M25.512 Pain in left shoulder (principal)
CPT/HCPCS: 73030

== ENCOUNTER → 2019-10-06 09:50 | Outpatient (CLI) | payer MEDICARE, SELFPAY ==
--- NOTE | 2019-10-06 09:50 | MR_ITS ---
PROCEDURE: MR CERVICAL SPINE WO CON CLINICAL INDICATION: neck pain Neck pain and stiffness COMPARISON: [id number] XR cervical spine 5V from 04/23/2018 TECHNIQUE: Standard multiplanar multiecho sequences are performed without contrast. 3-D MIP and myelographic images are also rendered and reviewed FINDINGS: There is normal alignment. The craniocervical junction has an unremarkable appearance. C2-C3: Mild degenerative disc disease with minimal bulging disc. C3-C4: Degenerative disc disease with bulging disc/disc osteophyte complex eccentric to the left with mild left-sided lateral recess and foraminal narrowing. C4-C5: Degenerate disc disease with bulging disc also slightly eccentric toward the left with associated disc osteophyte complex with left lateral recess and foraminal narrowing. C5-C6: Degenerative disc disease with small right paracentral disc protrusion abutting the cord without displacement. There is narrowing of the canal at this level at 9 mm. C6-C7: Degenerate disc disease with mild bulging disc slightly eccentric toward the left with left foraminal narrowing with canal narrowing at 9 mm C7-T1: Unremarkable. No extruded herniated disc are evident. Two there is degenerative disc disease at T2-T3 with mild bulging disc. IMPRESSION: There is multilevel cervical spondylosis with degenerative disc disease, bulging disc, and disc osteophyte complexes with uncovertebral hypertrophy with resultant lateral recess and foraminal narrowing. There is also canal stenosis. Please see above for detailed description at each level. Dictated by: Mike Shay MD 10/07/2019 09:50 Electronically signed by Mike Shay MD in [place] 10/07/2019 09:50
== END ==
PROVIDERS: PCP Family Medicine; Visit Provider Orthopaedic Surgery
DX: M54.2 Cervicalgia (principal)
CPT/HCPCS: 72141; 76376

== ENCOUNTER → 2019-10-09 14:26 | Outpatient (POV) | payer MEDICARE, SELFPAY | PROVIDERS: PCP Specialist; Visit Provider Specialist | DX: M79.602 Pain in left arm (principal); R20.2 Paresthesia of skin | CPT/HCPCS: 95886; 95908 ==

== ENCOUNTER → 2019-10-17 13:23 | Outpatient (CLI) | payer MEDICARE, SELFPAY ==
--- NOTE | 2019-10-17 13:27 | XR_ITS ---
PROCEDURE: XR HIP LT 2-3V W/PELVIS CLINICAL INDICATION: left hip pain COMPARISON: PEL1V XR pelvis 1-2V from 07/07/2017 FINDINGS: No fracture or dislocation is evident. There is mild asymmetrical joint space narrowing. There is moderate spurring of the acetabulum superiorly. There are surgical clips close to the inferior aspects of the SI joints bilaterally and likely previous tubal ligation clips. The iliac bones and pubic bones appear intact. The SI joints are normal. The right hip is grossly normal for age. IMPRESSION: Mild osteoarthritic change left hip Dictated by: Dr. Hunter Vivar MD 10/17/2019 14:[address] Hunter Vivar MD in [place] 10/17/2019 14:02
== END ==
PROVIDERS: PCP Family Medicine; Visit Provider Orthopaedic Surgery
DX: M25.552 Pain in left hip (principal)
CPT/HCPCS: 73502

== ENCOUNTER 2019-12-08 08:30 | Outpatient (RCR) | payer MEDICARE, SELFPAY | END 2019-12-08 08:35 | disposition home or self-care (01) | LOC: PT 08:30 | PROVIDERS: PCP Family Medicine; Visit Provider Orthopaedic Surgery | DX: M54.2 Cervicalgia (principal) | CPT/HCPCS: 97010; 97012; 97014; 97110; 97140; 97163; G0283 ==

== ENCOUNTER → 2020-06-19 13:54 | Outpatient (CLI) | payer MEDICARE, SELFPAY ==
--- NOTE | 2020-06-19 14:03 | XR_ITS ---
PROCEDURE: XR SHOULDER LT MIN 2V CLINICAL INDICATION: shoulder pain Pain with limited range of motion COMPARISON: CR SHOU3R [id number] VIEWS from 04/29/2015 CR SHOULDCMLT XR shoulder LT min 2V from 03/30/2018 CR XR SHOULDER LT MIN 2V from 10/03/2019 FINDINGS: No fracture or dislocation. No lytic or blastic change. There is normal mineralization. There are minimal osteoarthritic changes the glenohumeral joint and acromioclavicular joint. Other findings:None. IMPRESSION: Minimal osteoarthritic change. No change with no acute finding. Dictated by: Mike Shay MD 06/19/2020 15:29 Mike Shay MD in [place] 06/19/2020 15:29
== END ==
PROVIDERS: PCP Family Medicine; Visit Provider Orthopaedic Surgery
DX: M75.52 Bursitis of left shoulder (principal)
CPT/HCPCS: 73030

== ENCOUNTER → 2020-06-24 15:46 | Outpatient (CLI) | payer MEDICARE, SELFPAY ==
--- NOTE | 2020-06-24 15:46 | MR_ITS ---
PROCEDURE: MR SHOULDER LT WO CON CLINICAL INDICATION: left shoulder pain; evaluate for rotator cuff tear PT FELL XYRS AGO. PAIN WHEN RAISING ARM ABOVE HEAD. COMPARISON: MR MR SHOULDER LT WO CON from 07/13/2019 CR XR SHOULDER LT MIN 2V from 06/19/2020 TECHNIQUE: Routine multiplanar multi echo sequences are performed without gadolinium enhancement. FINDINGS: There are osteoarthritic changes with bony hypertrophy at the acromioclavicular joint. There is subacromial stenosis with a subacromial space measuring 4 mm. The infraspinatus tendon, subscapularis tendon, and teres minor tendons have an unremarkable appearance. There remains irregularity of the undersurface with increased T2 signal involving the supraspinatus tendon consistent with a partial undersurface tear. A full-thickness tear is not apparent. There is a small shoulder joint effusion with fluid also in the sub coracoid region. Fluid is present also in the bicipital tendon sheath. The bicipital tendon is in position. No obvious labral tear. No bone bruise. There are osteoarthritic changes of the glenohumeral joint. IMPRESSION: 1. Subacromial stenosis with tendinopathy/tendinosis of the supraspinatus tendon with suspected partial undersurface tear which does not appear significantly changed. A full-thickness tear is not identified. 2. Osteoarthritic changes of the AC joint and glenohumeral joint with shoulder joint effusion which is slightly larger. 3. Possible tenosynovitis of the bicipital tendon Dictated by: Mike Shay MD 06/26/2020 10:23 Mike Shay MD in [place] 06/26/2020 10:23
== END ==
PROVIDERS: PCP Family Medicine; Visit Provider Orthopaedic Surgery
DX: G89.29 Other chronic pain (principal); M25.512 Pain in left shoulder
CPT/HCPCS: 73221

== ENCOUNTER 2020-10-02 15:00 | Outpatient (RCR) | payer MEDICARE, SELFPAY ==
--- NOTE | 2020-07-22 15:39 | HMH.OTOPEV ---
OT Inpatient Evaluation Rehab OT Outpatient Eval Start: 07/22/20 14:57 Freq: Status: Active Protocol: Document 07/22/20 14:58 VIVIANEKRISS (Rec: 07/22/20 15:39 NELSONTEA [id number]) Electronically Signed By Marlene Zuniga OT 07/22/20 14:58 Outpatient Therapy Subjective History Subjective History 75 year old female referred to skilled OP OT services for eval and tx for L UE rotator cuff tendinopathy, partial rotator cuff tear and bicep tendinitis. X-ray on 06/19/20- Minimal osteoarthritic change. No change with no acute finding. 06/24/20- MRI resulting 1. Subacromial stenosis with tendinopathy/ tendinosis of the supraspinatus tendon with suspected partial undersurface tear which does not appear significantly changed. A full- thickness tear is not identified. 2. Osteoarthritic changes of the AC joint and glenohumeral joint with shoulder joint effusion which is slightly larger. 3. Possible tenosynovitis of the bicipital tendon. On 07/04/20, cortisone shot completed in L UE. Patient came with orders by ortho from 07/04/20 for removable wrist brace and removable cubital tunnel elbow brace for left CTS and cubital tunnel. However Patient verbalize already having two removable hand splints and not wanting to focus on wrist 2* no pain. Chief Complaint Pain Symptom Type Ache Symptoms Relieved By Nothing Symptoms Aggravated By Physical Activity Prior Functional Limitations None Current Functional Limitations Reaching,Lifting,Recreation Activity Symptom Description Intermittent Level of pain today (0-10) 5 Pain scale - at its best (0-10) 5 Pain scale - at its worst (0-10) 8 Shoulder/Elbow Eval Shoulder Objective Measurements Shoulder ROM Left Shoulder Abduction Active Range of 80 Motion (degrees)
== END 2020-10-02 15:05 | disposition home or self-care (01) ==
LOC: OT 15:00
PROVIDERS: PCP Family Medicine; Visit Provider Orthopaedic Surgery
DX: M75.102 Unspecified rotator cuff tear or rupture of left shoulder, not specified as traumatic (principal)
CPT/HCPCS: 97014; 97035; 97110; 97140; 97164; 97165; 97530; 97763; G0283

== ENCOUNTER → 2020-10-16 14:48 | Outpatient (CLI) | payer MEDICARE, SELFPAY ==
--- NOTE | 2020-10-16 14:57 | XR_ITS ---
PROCEDURE: XR CHEST PORTABLE CLINICAL HISTORY: COVID OUTPATIENT COMPARISON: CR CXR CHEST(2 VIEWS-NOT PORTABLE) from 08/28/2013 CR CXR1 CHEST-PORTABLE from 06/25/2016 CR CXR2V XR chest 2V from 03/02/[address] angio chest from 12/09/2018 FINDINGS: The cardiomediastinal silhouette and pulmonary vascularity are within normal limits. The lungs are clear without infiltrates, suspicious nodules, or pleural effusions. Lower thoracic curvature convex right IMPRESSION: No acute findings. Dictated by: Mike Shay MD 10/16/2020 15:19 Mike Shay MD in [place] 10/16/2020 15:19
[2020-10-16 15:56] LABS: Basophils # 0.1 K/mm3 (0-0.2); Eosinophils # 0.1 K/mm3 (0.0-0.4); Hematocrit 46.6 % (37.0-47.0); Hemoglobin 15.2 g/dL (12.2-16.2); Lymphocytes # 2.4 K/mm3 (0.7-4.5); Lymphocytes % 44.3 % (10-50); Mean Corpuscular HGB Conc 32.7 g/dL (31.8-35.4); Mean Corpuscular Hemoglobin 26.9 pg (27.0-31.2); Mean Corpuscular Volume 82.3 fl (81-99); Mean Platelet Volume 8.1 fl (7.4-10.4); Monocytes # 0.5 K/mm3 (0.1-1.0); Monocytes % 9.1 % (1.7-9.3); Neutrophils # 2.4 K/mm3 (1.8-7.8); Neutrophils % 43.7 % (37.0-80.0); Platelet Count 205 K/mm3 (142-424); Red Blood Count 5.66 M/mm3 (4.20-5.40); Red Cell Distribution Width 13.2 % (11.5-17.5); White Blood Count 5.4 K/mm3 (4.8-10.8)
== END ==
PROVIDERS: PCP Family Medicine; Visit Provider Physician Assistant
DX: Z20.822 Contact with and (suspected) exposure to COVID-19 (principal); U07.1 COVID-19; R06.00 Dyspnea, unspecified
CPT/HCPCS: 36415; 71045; 85025; U0003

== ENCOUNTER → 2020-11-01 14:59 | Outpatient (CLI) | payer MEDICARE, SELFPAY ==
--- NOTE | 2020-11-01 15:25 | XR_ITS ---
PROCEDURE: XR CHEST PORTABLE CLINICAL HISTORY: COVID OUTPATIENT COMPARISON: CR CXR1 CHEST-PORTABLE from 06/25/2016 CR CXR2V XR chest 2V from 03/02/[address] angio chest from 12/09/2018 CR XR CHEST PORTABLE from 10/16/2020 FINDINGS: The cardiomediastinal silhouette and pulmonary vascularity are within normal limits. Bandlike area of increased density in the left lower lobe suggestive of an area of atelectasis. The remaining lungs are clear. Lumbar scoliosis convex left IMPRESSION: Left lower lobe atelectasis Dictated by: Mike Shay MD 11/01/2020 17:08 Mike Shay MD in [facility] 11/01/2020 17:08
[2020-11-01 15:38] LABS: Basophils % 0.6 % (0.1-2.0); Eosinophils # 0.2 K/mm3 (0.0-0.4); Eosinophils % 2.9 % (0.1-12.0); Hematocrit 41.7 % (37.0-47.0); Hemoglobin 13.6 g/dL (12.2-16.2); Lymphocytes # 2.1 K/mm3 (0.7-4.5); Lymphocytes % 37.1 % (10-50); Mean Corpuscular HGB Conc 32.6 g/dL (31.8-35.4); Mean Corpuscular Hemoglobin 26.6 pg (27.0-31.2); Mean Corpuscular Volume 81.7 fl (81-99); Mean Platelet Volume 7.5 fl (7.4-10.4); Monocytes # 0.4 K/mm3 (0.1-1.0); Monocytes % 6.9 % (1.7-9.3); Neutrophils % 52.5 % (37.0-80.0); Platelet Count 270 K/mm3 (142-424); Red Blood Count 5.11 M/mm3 (4.20-5.40); Red Cell Distribution Width 13.3 % (11.5-17.5); White Blood Count 5.6 K/mm3 (4.8-10.8)
[2020-11-01 15:41] LABS: Chloride 107 mmol/L (98-107); Potassium 4.4 mmoL/L (3.5-5.1); Sodium 140 mmol/L (136-145)
[2020-11-01 15:44] LABS: Alanine Aminotransferase 80 U/L (12-78); Albumin Level 3.9 g/dl (3.5-5.0); Albumin/Globulin Ratio 1.3 (1.1-1.8); Alkaline Phosphatase 104 U/L (38-126); Anion Gap 11.4 mEq/L (5-15); Aspartate Amino Transferase 81 U/L (14-36); Bilirubin,Total 0.4 mg/dl (0.2-1.3); Blood Urea Nitrogen 11 mg/dl (7-17); Carbon Dioxide 26 mmol/L (22.0-30.0); Estimated Glomerular Filt Rate 61 ml/min (>60); GFR (African American) 74 ML/MIN (>60); Total Protein,Serum 6.9 g/dl (6.3-8.2)
[2020-11-01 15:45] LABS: Glucose 96 mg/dl (74-100)
== END ==
PROVIDERS: PCP Family Medicine; Visit Provider Nurse Practitioner
DX: U07.1 COVID-19 (principal); I10 Essential (primary) hypertension
CPT/HCPCS: 36415; 71045; 80053; 85025

== ENCOUNTER → 2020-11-20 16:23 | Outpatient (CLI) | payer MEDICARE, SELFPAY ==
[2020-11-20 16:46] LABS: Blood Urea Nitrogen 12 mg/dl (7-17); Estimated Glomerular Filt Rate 61 ml/min (>60); GFR (African American) 74 ML/MIN (>60)
== END ==
PROVIDERS: Visit Provider Nurse Practitioner Family
DX: R10.9 Unspecified abdominal pain (principal)
CPT/HCPCS: 36415; 82565; 84520

== ENCOUNTER → 2020-11-21 11:18 | Outpatient (CLI) | payer MEDICARE, SELFPAY ==
--- NOTE | 2020-11-21 11:22 | CT_ITS ---
PROCEDURE: CT ABDOMEN PELVIS W CON CLINICAL INDICATION: Lower abd pain Tenderness and bloating COMPARISON: No exams were available for comparison TECHNIQUE: IV Contrast: 75ML Isovue 370 Oral Contrast None Axial images obtained with sagittal and coronal reformats. All CT scans at the facility use one or more dose reduction, viz: automated exposure control, ma/kV adjustment per patient size (including targeted exams where dose is matched to indication, i.e. head), or iterative reconstruction technique. FINDINGS: LOWER THORAX: No acute finding ABDOMEN & PELVIS: Prior cholecystectomy. Mild fatty liver replacement. No focal liver lesion apparent. The spleen, adrenal glands, pancreas, and kidneys have an unremarkable appearance. No obvious renal or ureteral calculi. No intestinal obstruction or free air. No evidence of appendicitis. There are colonic diverticula but no evidence of diverticulitis. There has been a prior hysterectomy. There is a large cystic lesion in the left pelvic area anteriorly consistent with an ovarian cyst. This measures 9.6 by 6.8 cm. No obvious internal septa. There does appear to be some mild thickening of the cyst wall inferiorly on the coronal reformatted images. Along the anterior left aspect of the cyst there is an exophytic nodular region with both soft tissue and fluid density which measures 2 cm. Tubal ligation clips are present. There are numerous other small cystic regions within the abdomen and pelvis. A 2 cm cystic areas present in the mid pelvic region image 91. On the same image there is a a 1.5 and a 1.4 cm cystic lesion in the right pelvic area. These are adjacent to bowel loops. An additional 17 mm cystic areas present in the right lower quadrant anteriorly also adjacent to small bowel loop. A more solid-appearing lesion is present in the right lower quadrant measuring 2.3 cm image 72. There is thickening of the right pericolic gutter posteriorly. A small soft tissue implant is present in the left upper quadrant at 10 mm. At the level of the umbilicus anteriorly and on the right there is a mixed cystic and solid lesion at 3.9 x 1.8 cm. Solid-appearing implant is present in the mid to upper pelvic region at 1.6 cm. Small amount fluid is present in the right pelvic area. There is mild lumbar scoliosis convex left and mild degenerative changes in the hips. No lytic or blastic bony lesions identified. IMPRESSION: Cystic left-sided pelvic/ovarian mass with numerous cystic and solid pelvic and abdominal lesions suspicious for ovarian cancer with peritoneal implants/metastasis. Suggest ultrasound for further evaluation of the cystic left adnexal mass. There is a small amount of pelvic fluid. No evidence of hepatic or adrenal metastasis. Dictated by: Mike Shay MD 11/22/2020 08:37 Mike Shay MD in [facility] 11/22/2020 08:37
== END ==
PROVIDERS: PCP Family Medicine; Visit Provider Nurse Practitioner Family
DX: R10.9 Unspecified abdominal pain (principal)
CPT/HCPCS: 74177; Q9967

== ENCOUNTER → 2021-02-07 14:30 | Outpatient (CLI) | payer MEDICARE, SELFPAY ==
--- NOTE | 2021-02-07 16:00 | PC.NURSE ---
PT CAME IN TO LAB TODAY TO GET LABS; IT WAS NOTED THAT PT HAD A PORT SO SHE WAS BROUGHT OVER TO US TO ACCESS PORT FOR LABS. ATTEMPTED TO ACCESS TWICE; PORT WAS EASY TO ACCESS BUT NOT ABLE TO GET BLOOD ON EITHER TRY. THE PATIENT AGREED TO GET LABS DONE PERIPHERALLY AND SHE WILL COME BACK NEXT WEEK AND TRY THE PORT AGAIN. HER PORT WAS RECENTLY PLACED AT . WAS AWARE.
[2021-02-07 16:11] LABS: Basophils % 0.5 % (0.1-2.0); Eosinophils % 0.7 % (0.1-12.0); Hematocrit 34.4 % (37.0-47.0); Hemoglobin 11.1 g/dL (12.2-16.2); Lymphocytes # 1.1 K/mm3 (0.7-4.5); Lymphocytes % 26.7 % (10-50); Mean Corpuscular HGB Conc 32.3 g/dL (31.8-35.4); Mean Corpuscular Hemoglobin 26.7 pg (27.0-31.2); Mean Corpuscular Volume 82.5 fl (81-99); Mean Platelet Volume 8.9 fl (7.4-10.4); Monocytes # 0.5 K/mm3 (0.1-1.0); Monocytes % 11.5 % (1.7-9.3); Neutrophils # 2.5 K/mm3 (1.8-7.8); Neutrophils % 60.6 % (37.0-80.0); Platelet Count 168 K/mm3 (142-424); Red Blood Count 4.17 M/mm3 (4.20-5.40); Red Cell Distribution Width 14.2 % (11.5-17.5); White Blood Count 4.2 K/mm3 (4.8-10.8)
[2021-02-07 16:14] LABS: Chloride 99 mmol/L (98-107); Potassium 3.4 mmoL/L (3.5-5.1); Sodium 133 mmol/L (136-145)
[2021-02-07 16:17] LABS: Alanine Aminotransferase 143 U/L (12-78); Albumin Level 3.1 g/dl (3.5-5.0); Alkaline Phosphatase 173 U/L (38-126); Anion Gap 12.4 mEq/L (5-15); Aspartate Amino Transferase 102 U/L (14-36); Bilirubin,Total 0.4 mg/dl (0.2-1.3); Blood Urea Nitrogen 19 mg/dl (7-17); Carbon Dioxide 25 mmol/L (22.0-30.0); Estimated Glomerular Filt Rate 61 ml/min (>60); GFR (African American) 74 ML/MIN (>60); Total Protein,Serum 6.1 g/dl (6.3-8.2)
[2021-02-07 16:18] LABS: Calcium 8.7 mg/dl (8.4-10.2); Glucose 126 mg/dl (74-100)
== END ==
PROVIDERS: Visit Provider Obstetrics & Gynecology
DX: C57.02 Malignant neoplasm of left fallopian tube (principal)
CPT/HCPCS: 36415; 80053; 85025; J1642

== ENCOUNTER 2021-02-20 15:13 | Outpatient (CLI) | payer MEDICARE, SELFPAY ==
[2021-02-20 15:24] VITALS: BMI 21.6
[2021-02-20 15:43] LABS: Basophils % 0.3 % (0.1-2.0); Eosinophils % 0.3 % (0.1-12.0); Hematocrit 38.4 % (37.0-47.0); Hemoglobin 11.9 g/dL (12.2-16.2); Lymphocytes # 0.8 K/mm3 (0.7-4.5); Lymphocytes % 9.8 % (10-50); Mean Corpuscular Hemoglobin 26.4 pg (27.0-31.2); Mean Corpuscular Volume 85.2 fl (81-99); Mean Platelet Volume 8.4 fl (7.4-10.4); Monocytes # 0.2 K/mm3 (0.1-1.0); Monocytes % 2.1 % (1.7-9.3); Neutrophils % 87.6 % (37.0-80.0); Platelet Count 475 K/mm3 (142-424); Red Cell Distribution Width 16.5 % (11.5-17.5)
[2021-02-20 15:44] LABS: MANUAL DIFFERENTIAL MANUAL DIFFERENTIAL (MANUAL DIFF)
[2021-02-20 15:48] LABS: Chloride 103 mmol/L (98-107); Potassium 4.4 mmoL/L (3.5-5.1); Sodium 137 mmol/L (136-145)
[2021-02-20 15:51] LABS: Alanine Aminotransferase 107 U/L (12-78); Albumin Level 3.9 g/dl (3.5-5.0); Albumin/Globulin Ratio 1.4 (1.1-1.8); Alkaline Phosphatase 136 U/L (38-126); Anion Gap 17.4 mEq/L (5-15); Aspartate Amino Transferase 149 U/L (14-36); Bilirubin,Total 0.5 mg/dl (0.2-1.3); Blood Urea Nitrogen 19 mg/dl (7-17); Calcium 9.2 mg/dl (8.4-10.2); Carbon Dioxide 21 mmol/L (22.0-30.0); Creatinine Clearance Estimated 45 mL/min (50-200); Estimated Glomerular Filt Rate 82 ml/min (>60); GFR (African American) 99 ML/MIN (>60); Globulin 2.8 g/dL (1.3-3.2); Glucose 202 mg/dl (74-100); Total Protein,Serum 6.7 g/dl (6.3-8.2)
[2021-02-20 16:18] LABS: Lymphocytes % 6 % (10-50); Monocytes % 3 % (2-9); Neutrophils % 91 % (42-76); Platelet Estimate Slight Increase; Total Cells Counted 100
[2021-02-20 16:21] LABS: Hypochromasia 2+
== END 2021-02-20 15:50 | disposition home or self-care (01) ==
PROVIDERS: Visit Provider Family Medicine
DX: C57.02 Malignant neoplasm of left fallopian tube (principal); Z45.2 Encounter for adjustment and management of vascular access device
CPT/HCPCS: 80053; 85007; 85025; J1642

== ENCOUNTER 2021-02-27 13:20 | Outpatient (CLI) | payer MEDICARE, SELFPAY ==
--- NOTE | 2021-02-27 13:30 | PC.NURSE ---
[id number]- called md office for stool order
[2021-02-27 13:33] VITALS: BMI 21.6
[2021-02-27 14:14] LABS: Adenovirus F 40/41, stool Not Detected (NotDetected); Astrovirus Not Detected (NotDetected); Campylobacter Not Detected (NotDetected); Clostridium Difficile A/B, PCR Not Detected (NotDetected); Cryptosporidium Not Detected (NotDetected); Cyclospora Cayetanesis Not Detected (NotDetected); Entamoeba histolytica Not Detected (NotDetected); Enteroaggregative E coli Not Detected (NotDetected); Enteropathogenic E coli Not Detected (NotDetected); Enterotoxigenic E coli Not Detected (NotDetected); Giardia lamblia Not Detected (NotDetected); Norovirus Not Detected (NotDetected); Plesimonas Shigalloides, PCR Not Detected (NotDetected); Rotavirus A Not Detected (NotDetected); Salmonella, PCR Not Detected (NotDetected); Sapovirus Not Detected (NotDetected); Shiga-like toxin E coli Not Detected (NotDetected); Shigella Enterovasive E coli Not Detected (NotDetected); Vibrio Cholerae Not Detected (NotDetected); Vibrio, PCR Not Detected (NotDetected); Yersinia Entercolitica, PCR Not Detected (NotDetected)
[2021-02-27 14:22] LABS: Basophils % 0.8 % (0.1-2.0); Eosinophils % 0.7 % (0.1-12.0); Hematocrit 33.8 % (37.0-47.0); Lymphocytes # 1.4 K/mm3 (0.7-4.5); Lymphocytes % 67.1 % (10-50); Mean Corpuscular HGB Conc 32.6 g/dL (31.8-35.4); Mean Corpuscular Hemoglobin 26.8 pg (27.0-31.2); Mean Corpuscular Volume 82.3 fl (81-99); Mean Platelet Volume 8.5 fl (7.4-10.4); Monocytes # 0.4 K/mm3 (0.1-1.0); Monocytes % 19.9 % (1.7-9.3); Neutrophils # 0.2 K/mm3 (1.8-7.8); Platelet Count 232 K/mm3 (142-424); Red Cell Distribution Width 16.6 % (11.5-17.5); White Blood Count 2.1 K/mm3 (4.8-10.8)
[2021-02-27 14:23] LABS: Chloride 101 mmol/L (98-107); Neutrophils % 11.7 % (37.0-80.0); Potassium 3.8 mmoL/L (3.5-5.1); Sodium 135 mmol/L (136-145)
[2021-02-27 14:26] LABS: Alanine Aminotransferase 121 U/L (12-78); Albumin Level 3.6 g/dl (3.5-5.0); Albumin/Globulin Ratio 1.2 (1.1-1.8); Alkaline Phosphatase 157 U/L (38-126); Anion Gap 9.8 mEq/L (5-15); Aspartate Amino Transferase 98 U/L (14-36); Bilirubin,Total 0.2 mg/dl (0.2-1.3); Blood Urea Nitrogen 7 mg/dl (7-17); Carbon Dioxide 28 mmol/L (22.0-30.0); Creatinine Clearance Estimated 45 mL/min (50-200); Estimated Glomerular Filt Rate 98 ml/min (>60); GFR (African American) 119 ML/MIN (>60); Globulin 3.1 g/dL (1.3-3.2); MANUAL DIFFERENTIAL MANUAL DIFFERENTIAL (MANUAL DIFF); Total Protein,Serum 6.7 g/dl (6.3-8.2)
[2021-02-27 14:27] LABS: Calcium 9.3 mg/dl (8.4-10.2); Glucose 110 mg/dl (74-100)
[2021-02-27 14:41] LABS: Eosinophils % 1 % (0-3); Lymphocytes % 78 % (10-50); Monocytes % 11 % (2-9); Neutrophils % 10 % (42-76); Platelet Estimate Normal; RBC Morphology Normal; Total Cells Counted 100
== END 2021-02-27 14:10 | disposition home or self-care (01) ==
LOC: INF 13:22
PROVIDERS: PCP Family Medicine; Visit Provider Obstetrics & Gynecology
DX: R19.7 Diarrhea, unspecified (principal); C57.02 Malignant neoplasm of left fallopian tube; Z45.2 Encounter for adjustment and management of vascular access device
CPT/HCPCS: 80053; 85007; 85025; 87506; J1642

== ENCOUNTER 2021-03-06 12:45 | Outpatient (CLI) | payer MEDICARE, SELFPAY ==
[2021-03-06 12:50] VITALS: BMI 21.9
[2021-03-06 13:25] LABS: Basophils % 0.7 % (0.1-2.0); Eosinophils % 0.3 % (0.1-12.0); Hemoglobin 11.1 g/dL (12.2-16.2); Lymphocytes % 46.4 % (10-50); Mean Corpuscular HGB Conc 31.6 g/dL (31.8-35.4); Mean Corpuscular Hemoglobin 27.1 pg (27.0-31.2); Mean Corpuscular Volume 85.8 fl (81-99); Mean Platelet Volume 8.5 fl (7.4-10.4); Monocytes # 0.3 K/mm3 (0.1-1.0); Monocytes % 6.5 % (1.7-9.3); Neutrophils % 46.1 % (37.0-80.0); Platelet Count 187 K/mm3 (142-424); Red Blood Count 4.08 M/mm3 (4.20-5.40); Red Cell Distribution Width 18.6 % (11.5-17.5); White Blood Count 4.3 K/mm3 (4.8-10.8)
[2021-03-06 13:31] LABS: Chloride 105 mmol/L (98-107); Potassium 3.6 mmoL/L (3.5-5.1); Sodium 139 mmol/L (136-145)
[2021-03-06 13:34] LABS: Alanine Aminotransferase 67 U/L (12-78); Albumin Level 3.4 g/dl (3.5-5.0); Albumin/Globulin Ratio 1.2 (1.1-1.8); Alkaline Phosphatase 118 U/L (38-126); Anion Gap 11.6 mEq/L (5-15); Aspartate Amino Transferase 90 U/L (14-36); Blood Urea Nitrogen 10 mg/dl (7-17); Carbon Dioxide 26 mmol/L (22.0-30.0); Creatinine Clearance Estimated 46 mL/min (50-200); Estimated Glomerular Filt Rate 98 ml/min (>60); GFR (African American) 119 ML/MIN (>60); Globulin 2.8 g/dL (1.3-3.2); Total Protein,Serum 6.2 g/dl (6.3-8.2)
[2021-03-06 13:35] LABS: Calcium 9.2 mg/dl (8.4-10.2); Glucose 115 mg/dl (74-100)
[2021-03-06 13:36] LABS: Bilirubin,Total 0.1 mg/dl (0.2-1.3)
== END 2021-03-06 13:20 | disposition home or self-care (01) ==
LOC: INF 12:46
PROVIDERS: PCP Family Medicine; Visit Provider Family Medicine
DX: C57.02 Malignant neoplasm of left fallopian tube (principal); Z45.2 Encounter for adjustment and management of vascular access device
CPT/HCPCS: 80053; 85025; J1642

== ENCOUNTER 2021-03-18 13:44 | Outpatient (CLI) | payer MEDICARE, SELFPAY ==
[2021-03-18 14:15] VITALS: BMI 22.3
[2021-03-18 14:26] LABS: Basophils % 0.8 % (0.1-2.0); Eosinophils % 0.4 % (0.1-12.0); Hematocrit 33.6 % (37.0-47.0); Hemoglobin 10.7 g/dL (12.2-16.2); Lymphocytes # 1.5 K/mm3 (0.7-4.5); Lymphocytes % 67.7 % (10-50); Mean Corpuscular HGB Conc 31.8 g/dL (31.8-35.4); Mean Corpuscular Hemoglobin 27.3 pg (27.0-31.2); Mean Corpuscular Volume 86.1 fl (81-99); Mean Platelet Volume 8.3 fl (7.4-10.4); Monocytes # 0.1 K/mm3 (0.1-1.0); Monocytes % 3.8 % (1.7-9.3); Neutrophils # 0.6 K/mm3 (1.8-7.8); Neutrophils % 27.3 % (37.0-80.0); Platelet Count 224 K/mm3 (142-424); Red Blood Count 3.91 M/mm3 (4.20-5.40); Red Cell Distribution Width 17.8 % (11.5-17.5); White Blood Count 2.2 K/mm3 (4.8-10.8)
[2021-03-18 14:29] LABS: MANUAL DIFFERENTIAL MANUAL DIFFERENTIAL (MANUAL DIFF)
[2021-03-18 14:35] LABS: Chloride 98 mmol/L (98-107)
[2021-03-18 14:36] LABS: Potassium 3.9 mmoL/L (3.5-5.1); Sodium 135 mmol/L (136-145)
[2021-03-18 14:38] LABS: Alanine Aminotransferase 210 U/L (12-78); Alkaline Phosphatase 118 U/L (38-126); Aspartate Amino Transferase 258 U/L (14-36); Bilirubin,Total 0.2 mg/dl (0.2-1.3); Blood Urea Nitrogen 10 mg/dl (7-17); Creatinine Clearance Estimated 47 mL/min (50-200); Estimated Glomerular Filt Rate 82 ml/min (>60); GFR (African American) 99 ML/MIN (>60)
[2021-03-18 14:39] LABS: Albumin Level 3.8 g/dl (3.5-5.0); Albumin/Globulin Ratio 1.2 (1.1-1.8); Anion Gap 14.9 mEq/L (5-15); Calcium 9.5 mg/dl (8.4-10.2); Carbon Dioxide 26 mmol/L (22.0-30.0); Globulin 3.1 g/dL (1.3-3.2); Glucose 131 mg/dl (74-100); Total Protein,Serum 6.9 g/dl (6.3-8.2)
[2021-03-18 14:45] LABS: Lymphocytes % 49 % (10-50); Monocytes % 11 % (2-9); Neutrophils % 40 % (42-76); Nucleated Red Blood Cells 1; Total Cells Counted 100
[2021-03-18 14:46] LABS: Hypochromasia 1+; Platelet Estimate Normal
== END 2021-03-18 14:15 | disposition home or self-care (01) ==
LOC: INF 13:45
PROVIDERS: PCP Family Medicine; Visit Provider Obstetrics & Gynecology
DX: C57.02 Malignant neoplasm of left fallopian tube (principal)
CPT/HCPCS: 80053; 85007; 85025; J1642

== ENCOUNTER 2021-03-20 11:18 | Outpatient (CLI) | payer MEDICARE, SELFPAY ==
[2021-03-20 11:24] VITALS: BMI 21.6
[2021-03-20 11:51] LABS: Basophils % 0.7 % (0.1-2.0); Eosinophils % 0.4 % (0.1-12.0); Hematocrit 31.5 % (37.0-47.0); Hemoglobin 9.9 g/dL (12.2-16.2); Lymphocytes # 1.4 K/mm3 (0.7-4.5); Lymphocytes % 73.7 % (10-50); Mean Corpuscular HGB Conc 31.4 g/dL (31.8-35.4); Mean Corpuscular Hemoglobin 27.1 pg (27.0-31.2); Mean Corpuscular Volume 86.4 fl (81-99); Mean Platelet Volume 8.5 fl (7.4-10.4); Monocytes # 0.3 K/mm3 (0.1-1.0); Monocytes % 14.1 % (1.7-9.3); Neutrophils # 0.2 K/mm3 (1.8-7.8); Neutrophils % 11.1 % (37.0-80.0); Platelet Count 210 K/mm3 (142-424); Red Blood Count 3.64 M/mm3 (4.20-5.40); Red Cell Distribution Width 18.3 % (11.5-17.5); White Blood Count 1.9 K/mm3 (4.8-10.8)
[2021-03-20 11:52] LABS: MANUAL DIFFERENTIAL MANUAL DIFFERENTIAL (MANUAL DIFF)
[2021-03-20 11:55] LABS: Chloride 101 mmol/L (98-107); Potassium 3.4 mmoL/L (3.5-5.1); Sodium 137 mmol/L (136-145)
[2021-03-20 11:58] LABS: Alanine Aminotransferase 145 U/L (12-78); Albumin Level 3.6 g/dl (3.5-5.0); Albumin/Globulin Ratio 1.3 (1.1-1.8); Alkaline Phosphatase 123 U/L (38-126); Anion Gap 13.4 mEq/L (5-15); Aspartate Amino Transferase 136 U/L (14-36); Blood Urea Nitrogen 7 mg/dl (7-17); Calcium 8.5 mg/dl (8.4-10.2); Carbon Dioxide 26 mmol/L (22.0-30.0); Creatinine Clearance Estimated 45 mL/min (50-200); Estimated Glomerular Filt Rate 121 ml/min (>60); GFR (African American) 146 ML/MIN (>60); Globulin 2.8 g/dL (1.3-3.2); Glucose 143 mg/dl (74-100); Total Protein,Serum 6.4 g/dl (6.3-8.2)
[2021-03-20 11:59] LABS: Bilirubin,Total < 0.1 mg/dl (0.2-1.3)
[2021-03-20 12:04] LABS: Hypochromasia 1+; Lymphocytes % 78 % (10-50); Monocytes % 12 % (2-9); Neutrophils % 10 % (42-76); Platelet Estimate Normal; Total Cells Counted 50
== END 2021-03-20 11:35 | disposition home or self-care (01) ==
LOC: INF 11:20
PROVIDERS: PCP Family Medicine; Visit Provider Obstetrics & Gynecology
DX: C57.02 Malignant neoplasm of left fallopian tube (principal); Z45.2 Encounter for adjustment and management of vascular access device
CPT/HCPCS: 80053; 85007; 85025; J1642

== ENCOUNTER 2021-03-27 12:59 | Outpatient (CLI) | payer MEDICARE, SELFPAY ==
[2021-03-27 13:09] VITALS: BMI 21.6
[2021-03-27 13:36] LABS: Basophils % 0.6 % (0.1-2.0); Eosinophils % 0.1 % (0.1-12.0); Hematocrit 34.2 % (37.0-47.0); Hemoglobin 10.6 g/dL (12.2-16.2); Lymphocytes # 1.9 K/mm3 (0.7-4.5); Lymphocytes % 37.7 % (10-50); Mean Corpuscular HGB Conc 31.1 g/dL (31.8-35.4); Mean Corpuscular Hemoglobin 27.2 pg (27.0-31.2); Mean Corpuscular Volume 87.6 fl (81-99); Mean Platelet Volume 8.3 fl (7.4-10.4); Monocytes # 0.3 K/mm3 (0.1-1.0); Monocytes % 6.4 % (1.7-9.3); Neutrophils # 2.9 K/mm3 (1.8-7.8); Neutrophils % 55.2 % (37.0-80.0); Platelet Count 158 K/mm3 (142-424); Red Cell Distribution Width 19.9 % (11.5-17.5); White Blood Count 5.2 K/mm3 (4.8-10.8)
[2021-03-27 13:41] LABS: Chloride 106 mmol/L (98-107); Potassium 3.8 mmoL/L (3.5-5.1); Sodium 138 mmol/L (136-145)
[2021-03-27 13:43] LABS: Blood Urea Nitrogen 6 mg/dl (7-17); Creatinine Clearance Estimated 45 mL/min (50-200); Estimated Glomerular Filt Rate 98 ml/min (>60); GFR (African American) 119 ML/MIN (>60)
[2021-03-27 13:44] LABS: Alanine Aminotransferase 51 U/L (12-78); Albumin Level 3.5 g/dl (3.5-5.0); Albumin/Globulin Ratio 1.2 (1.1-1.8); Alkaline Phosphatase 116 U/L (38-126); Anion Gap 10.8 mEq/L (5-15); Aspartate Amino Transferase 55 U/L (14-36); Bilirubin,Total 0.2 mg/dl (0.2-1.3); Calcium 8.9 mg/dl (8.4-10.2); Carbon Dioxide 25 mmol/L (22.0-30.0); Glucose 104 mg/dl (74-100); Total Protein,Serum 6.5 g/dl (6.3-8.2)
== END 2021-03-27 13:35 | disposition home or self-care (01) ==
PROVIDERS: Family Medicine; PCP Family Medicine; Visit Provider Obstetrics & Gynecology
DX: C57.02 Malignant neoplasm of left fallopian tube (principal); Z45.2 Encounter for adjustment and management of vascular access device
CPT/HCPCS: 80053; 85025; J1642

== ENCOUNTER 2021-04-03 12:47 | Outpatient (CLI) | payer MEDICARE, SELFPAY ==
[2021-04-03 12:51] VITALS: BMI 21.6
[2021-04-03 13:22] LABS: Basophils % 0.3 % (0.1-2.0); Hematocrit 34.2 % (37.0-47.0); Hemoglobin 10.7 g/dL (12.2-16.2); Lymphocytes # 0.9 K/mm3 (0.7-4.5); Lymphocytes % 13.8 % (10-50); Mean Corpuscular HGB Conc 31.4 g/dL (31.8-35.4); Mean Corpuscular Hemoglobin 27.6 pg (27.0-31.2); Monocytes # 0.2 K/mm3 (0.1-1.0); Monocytes % 2.9 % (1.7-9.3); Neutrophils # 5.2 K/mm3 (1.8-7.8); Platelet Count 177 K/mm3 (142-424); Red Blood Count 3.89 M/mm3 (4.20-5.40); Red Cell Distribution Width 19.8 % (11.5-17.5); White Blood Count 6.2 K/mm3 (4.8-10.8)
[2021-04-03 13:46] LABS: Chloride 102 mmol/L (98-107); Sodium 138 mmol/L (136-145)
[2021-04-03 13:49] LABS: Alanine Aminotransferase 121 U/L (12-78); Albumin Level 3.9 g/dl (3.5-5.0); Albumin/Globulin Ratio 1.3 (1.1-1.8); Alkaline Phosphatase 111 U/L (38-126); Aspartate Amino Transferase 248 U/L (14-36); Bilirubin,Total 0.7 mg/dl (0.2-1.3); Blood Urea Nitrogen 12 mg/dl (7-17); Carbon Dioxide 22 mmol/L (22.0-30.0); Creatinine Clearance Estimated 45 mL/min (50-200); Estimated Glomerular Filt Rate 98 ml/min (>60); GFR (African American) 119 ML/MIN (>60); Globulin 2.9 g/dL (1.3-3.2); Total Protein,Serum 6.8 g/dl (6.3-8.2)
[2021-04-03 13:50] LABS: Glucose 220 mg/dl (74-100)
== END 2021-04-03 13:06 | disposition home or self-care (01) ==
LOC: INF 12:48
PROVIDERS: PCP Family Medicine; Visit Provider Obstetrics & Gynecology
DX: C57.02 Malignant neoplasm of left fallopian tube (principal); Z45.2 Encounter for adjustment and management of vascular access device
CPT/HCPCS: 80053; 85025; J1642

== ENCOUNTER 2021-04-10 13:07 | Outpatient (CLI) | payer MEDICARE, SELFPAY ==
[2021-04-10 13:29] VITALS: BMI 21.6
[2021-04-10 13:47] LABS: Chloride 101 mmol/L (98-107); Sodium 136 mmol/L (136-145)
[2021-04-10 13:48] LABS: Potassium 3.5 mmoL/L (3.5-5.1)
[2021-04-10 13:50] LABS: Alanine Aminotransferase 101 U/L (12-78); Albumin Level 3.8 g/dl (3.5-5.0); Albumin/Globulin Ratio 1.4 (1.1-1.8); Alkaline Phosphatase 104 U/L (38-126); Anion Gap 12.5 mEq/L (5-15); Aspartate Amino Transferase 99 U/L (14-36); Blood Urea Nitrogen 7 mg/dl (7-17); Carbon Dioxide 26 mmol/L (22.0-30.0); Creatinine Clearance Estimated 45 mL/min (50-200); Estimated Glomerular Filt Rate 82 ml/min (>60); GFR (African American) 99 ML/MIN (>60); Globulin 2.8 g/dL (1.3-3.2); Total Protein,Serum 6.6 g/dl (6.3-8.2)
[2021-04-10 13:51] LABS: Calcium 8.8 mg/dl (8.4-10.2); Glucose 111 mg/dl (74-100)
[2021-04-10 13:57] LABS: Basophils % 0.5 % (0.1-2.0); Eosinophils % 0.2 % (0.1-12.0); Hematocrit 30.1 % (37.0-47.0); Hemoglobin 9.9 g/dL (12.2-16.2); Lymphocytes # 1.5 K/mm3 (0.7-4.5); Lymphocytes % 84.5 % (10-50); Mean Corpuscular Hemoglobin 28.6 pg (27.0-31.2); Mean Corpuscular Volume 86.7 fl (81-99); Mean Platelet Volume 8.8 fl (7.4-10.4); Monocytes # 0.2 K/mm3 (0.1-1.0); Monocytes % 8.9 % (1.7-9.3); Neutrophils # 0.1 K/mm3 (1.8-7.8); Platelet Count 149 K/mm3 (142-424); Red Blood Count 3.48 M/mm3 (4.20-5.40); White Blood Count 1.8 K/mm3 (4.8-10.8)
[2021-04-10 14:07] LABS: Bilirubin,Total 0.1 mg/dl (0.2-1.3)
[2021-04-10 14:23] LABS: Neutrophils % 5.8 % (37.0-80.0)
[2021-04-10 14:26] LABS: MANUAL DIFFERENTIAL MANUAL DIFFERENTIAL (MANUAL DIFF)
[2021-04-10 15:44] LABS: Anisocytosis 3+; Hypochromasia 1+; Lymphocytes % 88 % (10-50); Monocytes % 6 % (2-9); Neutrophils % 6 % (42-76); Platelet Estimate Normal; Total Cells Counted 100
== END 2021-04-10 13:25 | disposition home or self-care (01) ==
LOC: INF 13:11
PROVIDERS: PCP Family Medicine; Visit Provider Obstetrics & Gynecology
DX: C57.02 Malignant neoplasm of left fallopian tube (principal)
CPT/HCPCS: 80053; 85007; 85025; J1642

== ENCOUNTER 2021-04-17 13:00 | Outpatient (CLI) | payer MEDICARE, SELFPAY ==
[2021-04-17 13:10] VITALS: BMI 22.3
[2021-04-17 13:49] LABS: Chloride 104 mmol/L (98-107); Potassium 3.5 mmoL/L (3.5-5.1); Sodium 140 mmol/L (136-145)
[2021-04-17 13:52] LABS: Alanine Aminotransferase 43 U/L (12-78); Albumin Level 3.5 g/dl (3.5-5.0); Albumin/Globulin Ratio 1.3 (1.1-1.8); Alkaline Phosphatase 82 U/L (38-126); Anion Gap 10.5 mEq/L (5-15); Aspartate Amino Transferase 56 U/L (14-36); Blood Urea Nitrogen 7 mg/dl (7-17); Carbon Dioxide 29 mmol/L (22.0-30.0); Creatinine Clearance Estimated 47 mL/min (50-200); Estimated Glomerular Filt Rate 82 ml/min (>60); GFR (African American) 99 ML/MIN (>60); Globulin 2.8 g/dL (1.3-3.2); Total Protein,Serum 6.3 g/dl (6.3-8.2)
[2021-04-17 13:53] LABS: Calcium 8.6 mg/dl (8.4-10.2); Glucose 105 mg/dl (74-100); Hematocrit 30.2 % (37.0-47.0); Hemoglobin 9.8 g/dL (12.2-16.2); Lymphocytes # 2.1 K/mm3 (0.7-4.5); Lymphocytes % 49.9 % (10-50); Mean Corpuscular HGB Conc 32.4 g/dL (31.8-35.4); Mean Corpuscular Hemoglobin 28.2 pg (27.0-31.2); Mean Corpuscular Volume 87.1 fl (81-99); Mean Platelet Volume 8.6 fl (7.4-10.4); Monocytes # 0.4 K/mm3 (0.1-1.0); Monocytes % 10.1 % (1.7-9.3); Neutrophils # 1.6 K/mm3 (1.8-7.8); Neutrophils % 39.1 % (37.0-80.0); Platelet Count 202 K/mm3 (142-424); Red Blood Count 3.47 M/mm3 (4.20-5.40); Red Cell Distribution Width 19.8 % (11.5-17.5); White Blood Count 4.1 K/mm3 (4.8-10.8)
[2021-04-17 13:54] LABS: Bilirubin,Total < 0.1 mg/dl (0.2-1.3)
== END 2021-04-17 13:25 | disposition home or self-care (01) ==
LOC: INF 13:01
PROVIDERS: PCP Family Medicine; Visit Provider Obstetrics & Gynecology
DX: C57.02 Malignant neoplasm of left fallopian tube (principal)
CPT/HCPCS: 80053; 85025; J1642

== ENCOUNTER 2021-04-27 11:45 | Observation (INO) | payer MEDICARE, SELFPAY ==
[2021-04-27] VITALS (15 sets, daily range): BP systolic 94–138; BP diastolic 64–92; PULSE 98–115; RESP 14–18; TEMP 36.4–36.9; O2SAT 95–100; BMI 22.3; BMI 21.9
[2021-04-27 12:01] LABS: Basophils % 0.7 % (0.1-2.0); Eosinophils % 0.7 % (0.1-12.0); Hematocrit 36.7 % (37.0-47.0); Hemoglobin 11.9 g/dL (12.2-16.2); Lymphocytes # 1.8 K/mm3 (0.7-4.5); Lymphocytes % 58.6 % (10-50); Mean Corpuscular HGB Conc 32.3 g/dL (31.8-35.4); Mean Corpuscular Hemoglobin 29.1 pg (27.0-31.2); Mean Platelet Volume 8.7 fl (7.4-10.4); Monocytes % 0.5 % (1.7-9.3); Neutrophils # 1.2 K/mm3 (1.8-7.8); Neutrophils % 39.5 % (37.0-80.0); Platelet Count 230 K/mm3 (142-424); Red Blood Count 4.08 M/mm3 (4.20-5.40); Red Cell Distribution Width 18.5 % (11.5-17.5); White Blood Count 3.1 K/mm3 (4.8-10.8)
[2021-04-27 12:07] LABS: MANUAL DIFFERENTIAL MANUAL DIFFERENTIAL (MANUAL DIFF)
[2021-04-27 12:08] LABS: Chloride 98 mmol/L (98-107); Potassium 3.7 mmoL/L (3.5-5.1); Sodium 136 mmol/L (136-145)
[2021-04-27 12:11] LABS: Alanine Aminotransferase 354 U/L (12-78); Albumin Level 4.4 g/dl (3.5-5.0); Albumin/Globulin Ratio 1.3 (1.1-1.8); Alkaline Phosphatase 136 U/L (38-126); Anion Gap 15.7 mEq/L (5-15); Aspartate Amino Transferase 613 U/L (14-36); Bilirubin,Total 0.8 mg/dl (0.2-1.3); Blood Urea Nitrogen 17 mg/dl (7-17); Carbon Dioxide 26 mmol/L (22.0-30.0); Creatinine Clearance Estimated 47 mL/min (50-200); Estimated Glomerular Filt Rate 82 ml/min (>60); GFR (African American) 99 ML/MIN (>60); Globulin 3.3 g/dL (1.3-3.2); Total Protein,Serum 7.7 g/dl (6.3-8.2)
[2021-04-27 12:12] LABS: Calcium 10.3 mg/dl (8.4-10.2); Glucose 120 mg/dl (74-100)
[2021-04-27 12:26] LABS: Eosinophils % 1 % (0-3); Lymphocytes % 60 % (10-50); Monocytes % 1 % (2-9); Neutrophils % 38 % (42-76); Platelet Estimate Normal; Total Cells Counted 100
[2021-04-27 12:27] LABS: Anisocytosis 1+; Troponin I < 0.01 ng/ml (0.00-0.034)
--- NOTE | 2021-04-27 12:35 | CT_ITS ---
PROCEDURE INFORMATION: Exam: CT Abdomen And Pelvis With Contrast Exam date and time: 04/27/2021 12:35 PM Age: 75 years old Clinical indication: Abdominal pain; Acute; Additional info: Pain// history of ovarian and tubal cancer TECHNIQUE: Imaging protocol: Computed tomography of the abdomen and pelvis with contrast. Radiation optimization: All CT scans at this facility use at least one of these dose optimization techniques: automated exposure control; mA and/or kV adjustment per patient size (includes targeted exams where dose is matched to clinical indication); or iterative reconstruction. Contrast material: ISOVUE; Contrast volume: 70 ml; Contrast route: IV; COMPARISON: CT ABDOMEN PELVIS W CON 11/21/2020 12:05 PM FINDINGS: Liver: No mass. Gallbladder and bile ducts: Cholecystectomy. No biliary ductal dilatation. Pancreas: Normal. No ductal dilation. Spleen: Normal. No splenomegaly. Adrenal glands: Normal. No mass. Kidneys and ureters: Normal. No hydronephrosis. Stomach and bowel: No acute findings. No obstruction. No mucosal thickening. Appendix: No evidence of appendicitis. Intraperitoneal space: No free air. No significant fluid collection. Vasculature: Filling defect in the lower division of the right pulmonary artery (series 3, image 1) which appears subacute. No abdominal aortic aneurysm. Lymph nodes: No significant adenopathy. Urinary bladder: Unremarkable as visualized. Reproductive: Hysterectomy. No adnexal mass. Bones/joints: No acute findings. Soft tissues: Unremarkable. IMPRESSION: No acute abdominal findings. Right lower lung pulmonary embolism.
--- NOTE | 2021-04-27 12:52 | HMH.EDGENADL ---
ED Disposition Clinical Impression: Transaminitis, Nausea Diarrhea Qualifiers: Diarrhea type: unspecified type Qualified Code(s): R19.7 - Diarrhea, unspecified Pulmonary embolism Qualifiers: Pulmonary embolism type: unspecified Chronicity: acute Acute cor pulmonale presence: without acute cor pulmonale Qualified Code(s): I26.99 - Other pulmonary embolism without acute cor pulmonale Disposition: Admitted As Inpatient Condition on Discharge: Good Instructions: DI for Diarrhea and Traveler's Diarrhea -- Adult, DI for Diarrhea and Traveler's Diarrhea -- Child, DI for Nausea -- Adult, DI for Nausea -- Child Referrals: Provider,Referral, [Primary Care Provider] - Time of Disposition: 16:16 - Critical Care Critical Care Time: No Attestation: On 04/27/21, the high probability of a clinically significant, sudden or life threatening deterioration of the following system(s) required my full and direct attention, intervention and personal management. The time I documented below is in addition to time spent performing reported procedures but includes the following listed in this critical care notation. Medical Decision Making - Medical Records Medical records reviewed: Yes: I reviewed the patient's medical records. - Scooter Inquiry Pt receiving controlled substance: No Vital Signs: 04/27/21 11:46 04/27/21 12:00 Temperature 97.6 F Temperature Source Oral Pulse Rate 98 H Pulse Rate [Left Radial] 110 H Respiratory Rate 18 Blood Pressure 111/74 Blood Pressure [Right Arm] 117/92 H Blood Pressure Mean 86 Blood Pressure Mean [Right Arm] 100 Blood Pressure Source [Right Arm] Automatic Cuff Blood Pressure Position [Right Arm] Sitting 02 Sat by Pulse Oximetry 100 100 Oxygen Delivery Method Room Air - Lab Data Lab results reviewed: Yes: I reviewed the patient's lab results. Lab Results 04/27/21 11:48: WBC 3.1 L, RBC 4.08 L, Hgb 11.9 L, Hct 36.7 L, MCV 90.0, MCH 29.1, MCHC 32.3, RDW 18.5 H, Plt Count 230, MPV 8.7, Neut % (Auto) 39.5, Lymph % (Auto) 58.6 H, [place] % (Auto) 0.5 L, Eos % (Auto) 0.7, Baso % (Auto) 0.7, Neut # (Auto) 1.2 L, Lymph # (Auto) 1.8, [place] # (Auto) 0.0 L, Eos # (Auto) 0.0, Baso # (Auto) 0.0, Total Counted 100, Neutrophils % (Manual) 38 L, Lymphocytes % (Manual) 60 H, Monocytes % (Manual) 1 L, Eosinophils % (Manual) 1, Platelet Estimate Normal, Anisocytosis 1+ 04/27/21 11:48: Sodium 136, Potassium 3.7, Chloride 98, Carbon Dioxide 26, Anion Gap 15.7 H, BUN 17, Creatinine 0.70, Estimated Creat Clear 47, Estimated GFR 82, Est GFR ( Amer) 99, Glucose 120 H, Calcium 10.3 H, Total Bilirubin 0.8, AST 613 H*, ALT 354 H*, Alkaline Phosphatase 136 H, Troponin I < 0.01, Total Protein 7.7, Albumin 4.4, Globulin 3.3 H, Albumin/Globulin Ratio 1.3 04/27/21 15:40: Urine Color Yellow, Urine Appearance Sl cloudy, Urine pH 7.5, Ur Specific Dora 1.010, Urine Protein Negative, Urine Glucose (UA) Negative, Urine Ketones Negative, Urine Blood Negative, Urine Nitrate Negative, Urine Bilirubin Negative, Urine Urobilinogen 0.2, Ur Leukocyte Esterase Negative, Urine WBC 5-10, Ur Squamous Epith Cells 3-5, Urine Bacteria 2+, Urine Mucus 1+ Result diagrams: 04/27/21 11:48 04/27/21 11:48 Orders (Tests/Meds): ED MEDICATIONS Generic Name Dose Route Start Last Admin Trade Name Freq PRN Reason Stop Dose Admin Apixaban 10 mg 04/27/21 21:00 Apixaban 5mg Tablet PO 05/27/21 20:59 BID SIMIN Docusate Sodium 100 mg 04/28/21 09:00 Docusate Sodium 100 Mg Capsule PO 05/28/21 08:59 DAILY SIMIN Sodium Chloride 1,000 mls @ 50 mls/hr 04/27/21 16:15 Sod Chlor 0.9% 1000ml Bag IV 05/27/21 16:14 .Q20H SIMIN Metoprolol Succinate 25 mg 04/28/21 09:00 Metoprolol Succinate Xl 25mg Tablet PO 05/28/21 08:59 DAILY SIMIN Non-Formulary Medication 5,000 unit 04/28/21 09:00 Cholecalciferol (Vitamin D3) [Vitamin D3] PO 05/28/21 08:59 DAILY SIMIN Non-Formulary Medication 12.5 mcg
--- NOTE | 2021-04-27 14:31 | CT_ITS ---
PROCEDURE INFORMATION: Exam: CT Chest Without Contrast; Diagnostic Exam date and time: 04/27/2021 2:31 PM Age: 75 years old Clinical indication: Shortness of breath; Additional info: Pe on abd scan// previously saw pe on abd/pelvis scan previously read and sent -- this chest scan ordered without contrast due to already had contrast for abd/pel scan and did not want to re-dose the contrast TECHNIQUE: Imaging protocol: Diagnostic computed tomography of the chest without contrast. Radiation optimization: All CT scans at this facility use at least one of these dose optimization techniques: automated exposure control; mA and/or kV adjustment per patient size (includes targeted exams where dose is matched to clinical indication); or iterative reconstruction. COMPARISON: [facility] CT angio chest 12/09/2018 1:53 PM FINDINGS: Tubes, catheters and devices: Right central venous catheter tip at the cavoatrial junction. Lungs: Unremarkable. No consolidation. No masses. Pleural spaces: Unremarkable. No pneumothorax. No pleural effusion. Heart: No cardiomegaly. No pericardial effusion. Aorta: No aortic aneurysm. Lymph nodes: No significant adenopathy. Bones/joints: No acute findings. Soft tissues: Unremarkable. IMPRESSION: No metastasis or acute findings.
--- NOTE | 2021-04-27 14:51 | PC.NURSE ---
back from ct
[2021-04-27 15:48] LABS: Microscopic, Urine URINE MICROSCOPIC (MICROSCOPIC)
[2021-04-27 15:50] LABS: Appearance,Urine SL CLOUDY (Clear); Bilirubin,Urine Negative (Negative); Blood, Urine Negative (Negative); Color,Urine YELLOW (Yellow); Glucose,Urine (UA) Negative (Negative); Ketones,Urine Negative (Negative); Leukocyte Esterase,Urine Negative (Negative); Nitrate,Urine Negative (Negative); PH,Urine 7.5 (5.0-8.5); Protein,Urine Negative (Negative); Urobilinogen,Urine 0.2 EU/dl (0.2)
--- NOTE | 2021-04-27 16:01 | PC.NURSE ---
DR ALIA CHOWDHURY
[2021-04-27 16:04] LABS: Coronavirus 19, PCR Not Detected (NotDetected); Influenza A, PCR Not Detected (NotDetected); Influenza B, PCR Not Detected (NotDetected)
[2021-04-27 16:06] LABS: Bacteria,Urine 2+ /lpf; Mucus,Urine 1+ /lpf
--- NOTE | 2021-04-27 16:47 | PC.NURSE ---
notified prefabricated houses trimmer of admission
--- NOTE | 2021-04-27 17:42 | PC.NURSE ---
Report called to Alondra MORAES
[2021-04-27 21:49] LABS: Campylobacter Not Detected (NotDetected); Clostridium Difficile A/B, PCR Not Detected (NotDetected); Plesimonas Shigalloides, PCR Not Detected (NotDetected); Salmonella, PCR Not Detected (NotDetected); Vibrio, PCR Not Detected (NotDetected); Yersinia Entercolitica, PCR Not Detected (NotDetected)
[2021-04-27 21:50] LABS: Adenovirus F 40/41, stool Not Detected (NotDetected); Astrovirus Not Detected (NotDetected); Cryptosporidium Not Detected (NotDetected); Cyclospora Cayetanesis Not Detected (NotDetected); Entamoeba histolytica Not Detected (NotDetected); Enteroaggregative E coli Not Detected (NotDetected); Enteropathogenic E coli Not Detected (NotDetected); Enterotoxigenic E coli Not Detected (NotDetected); Giardia lamblia Not Detected (NotDetected); Norovirus Not Detected (NotDetected); Rotavirus A Not Detected (NotDetected); Sapovirus Not Detected (NotDetected); Shiga-like toxin E coli Not Detected (NotDetected); Shigella Enterovasive E coli Not Detected (NotDetected); Vibrio Cholerae Not Detected (NotDetected)
[2021-04-28] VITALS: BP 110/66; PULSE 109; RESP 16; TEMP 37; O2SAT 97
[2021-04-28 04:00] VITALS: BP 110/59; PULSE 72; RESP 16; TEMP 37.6; O2SAT 97
[2021-04-28 05:00] VITALS: BMI 22.1
--- NOTE | 2021-04-28 05:20 | PC.NURSE ---
2030- pt. reports 5 loose bm and requests imodium; also c/o neuopathy pain in legs. Contacted MD Daniel, new orders: imodium tablet after each loose bm, gabapentin po 300mg q8h, oxycodone 5 mg po q6h prn, zofran 4mg po q6h prn prior to oxycodone and get stool sample. Pt. reports one bm since imodium dose. No c/o n/v, soa or dizziness. Standby assist. A&Ox4.
[2021-04-28 06:39] LABS: Basophils % 0.4 % (0.1-2.0); Eosinophils % 0.6 % (0.1-12.0); Hematocrit 27.3 % (37.0-47.0); Lymphocytes # 0.9 K/mm3 (0.7-4.5); Lymphocytes % 68.6 % (10-50); Mean Corpuscular HGB Conc 32.2 g/dL (31.8-35.4); Mean Corpuscular Hemoglobin 28.7 pg (27.0-31.2); Mean Platelet Volume 8.6 fl (7.4-10.4); Monocytes % 0.9 % (1.7-9.3); Neutrophils # 0.4 K/mm3 (1.8-7.8); Neutrophils % 29.5 % (37.0-80.0); Platelet Count 148 K/mm3 (142-424); Red Blood Count 3.06 M/mm3 (4.20-5.40); Red Cell Distribution Width 18.3 % (11.5-17.5); White Blood Count 1.2 K/mm3 (4.8-10.8)
[2021-04-28 06:48] LABS: Alanine Aminotransferase 195 U/L (12-78); Albumin Level 3.1 g/dl (3.5-5.0); Albumin/Globulin Ratio 1.1 (1.1-1.8); Alkaline Phosphatase 80 U/L (38-126); Anion Gap 5.8 mEq/L (5-15); Aspartate Amino Transferase 258 U/L (14-36); Bilirubin,Total 0.5 mg/dl (0.2-1.3); Blood Urea Nitrogen 9 mg/dl (7-17); Calcium 8.6 mg/dl (8.4-10.2); Carbon Dioxide 29 mmol/L (22.0-30.0); Chloride 104 mmol/L (98-107); Creatinine Clearance Estimated 46 mL/min (50-200); Estimated Glomerular Filt Rate 98 ml/min (>60); GFR (African American) 119 ML/MIN (>60); Globulin 2.8 g/dL (1.3-3.2); Glucose 87 mg/dl (74-100); Potassium 3.8 mmoL/L (3.5-5.1); Sodium 135 mmol/L (136-145); Total Protein,Serum 5.9 g/dl (6.3-8.2)
[2021-04-28 06:55] LABS: MANUAL DIFFERENTIAL MANUAL DIFFERENTIAL (MANUAL DIFF)
--- NOTE | 2021-04-28 07:21 | HMH.PHAVTE ---
[facility] Pharm[facility] VTE Monitoring - Patient Demographics Admission date: 04/27/21 Report Date: 04/28/21 Time: 07:21 Allergies/Adverse Reactions: Patient Allergies hyoscyamine Allergy (Unknown, Verified 08/08/20 13:26) I-RASH menthol Allergy (Unknown, Verified 08/08/20 13:26) NA-NAUSEA methyl salicylate Allergy (Unknown, Verified 08/08/20 13:26) NA-NAUSEA codeine Allergy (Verified 08/08/20 13:26) Height: 1.63 m Weight: 58.684 kg Patient Problems: Current Active Problems Transaminitis (Acute) Nausea (Acute) Diarrhea (Acute) Pulmonary embolism (Acute) - VTE Risk Labs: VTE Related Lab Results Hgb 11.9 g/dL (12.2-16.2) L 04/27/21 11:48 Hct 27.3 % (37.0-47.0) L 04/28/21 05:53 Plt Count 148 K/mm3 (142-424) D 04/28/21 05:53 BUN 9 mg/dl (7-17) D 04/28/21 05:53 Creatinine 0.60 mg/dl (0.52-1.04) 04/28/21 05:53 Estimated Creat Clear 46 mL/min (50-200) 04/28/21 05:53 VTE Score: 4 VTE Risk Level: Low Risk - Prophylaxis VTE Prophylaxis Ordered?: Yes Types of VTE Prophylaxis: IPCS Thigh High, Pharmacological Location of Applied Device: Bilateral Lower Extremeties Pharmacologic Type: Other (ELIQUIS)
[2021-04-28 08:00] VITALS: BP 115/72; PULSE 76; RESP 16; TEMP 36.8; O2SAT 98
--- NOTE | 2021-04-28 08:32 | HMH.HP ---
*Admission Date: 04/27/21 *Chief complaint: syncope; N,V,D *History of present illness: Ms. Freitas is a 75-year-old female with malignant pelvic mass diagnosed 11/22/2020 followed by recent surgery for removal of the mass and has currently completed 6 rounds of chemotherapy through [facility] in [facility]. She also has a history of hypothyroidism, hyperlipidemia, lumbar disc disease, coronary artery disease, and fibromyalgia. She had her last chemo a week ago. Initially she felt fine but then had severe nausea and vomiting. She has kept a diarrhea for several weeks. She has been unable to eat or drink. She states she progressively weakened and had 3 episodes of syncope during the past week. Thus her insisted that she come to the emergency room for evaluation. She had a CT of the abdomen/pelvis which showed no acute abdominal findings but did reveal a right lower lung pulmonary embolism. CT of the chest showed no metastatic disease and no acute findings although the latter was done without contrast. Laboratory data: Stool studies were all negative. Blood chemistries showed initially AST of 613 with a decreased today at 258 and Alt was 354 on admission and decreased to 195 today. Bilirubin was normal. Electrolytes showed were normal with a BUN of 17 and creatinine 0.7. CBC showed a low white blood cell count from 3.1 down to 1.2 this morning with a hemoglobin of 11.9 hematocrit of 36.7. At the time of this exam patient does not feel well at all. She was hungry but immediately was nauseated when trying to eat. She has had several diarrhea stools since admission. She is voiding QS. She denies chest pain and shortness of breath at this time. [facility] History Medical History: Reports:: Anxiety, Cancer, Coronary Artery Disease, Gastroesophageal Reflux Disease(GERD), Hyperlipidemia, Hypertension, Palpitations Denies:: Diabetes Mellitus Type 1, Diabetes Mellitus Type 2, Internal Pacemaker, Lung Disease, MRSA, Seizures *Have you ever received a pneumonia vaccine?: No *Have you received a flu vaccine this season?: No Other Medical History: Reports: Arthritis, Cataracts, Chemotherapy, Fibromyalgia, Hypothyroidism, Thyroid Disease, Other Other Surgeries: Yes: Cancer Surgery, Cardiac Catheterization, Cholecystectomy, Hernia Repair, Hysterectomy-Partial, Tubal Ligation, Other. No: Pacemaker Amputation: No Fractures: No - *Social History Last grade of school completed: High school graduate Smoking Status: Never smoker Alcohol Intake: never Substance Use Type: denies use *Occupational Status:: retired Housing: house Household Members: spouse *Travel in the last 8 weeks: None - Psychiatric History Pschychiatric History:: Reports:: Anxiety Family Hx:: Cancer, Coronary Artery Disease, Heart Attack Review of Systems - Constitutional Reports fatigue, Reports lack of energy, Reports weight loss - Eyes Reports change in vision - ENT Reports dizziness, Reports mouth pain, Denies difficulty swallowing, Denies ear pain, Denies sore throat - *Cardiovascular Reports leg pain with activity, Reports shortness of breath, Reports shortness of breath with activity, Reports leg sores, Denies chest pain, Denies irregular heart rhythm - *Respiratory Reports shortness of breath with activity, Denies chest congestion, Denies cough, Denies coughing up blood, Denies pain on inspiration - *Gastrointestinal Reports loose stools, Reports nausea, Reports vomiting, Denies abdominal pain, Denies constipation, Denies heartburn, Denies vomiting blood, Denies bright, red blood in stools - *Genitourinary Denies difficulty urinating, Denies blood in urine - *Musculoskeletal Reports abnormal walking, Reports muscle weakness - *Neurologic Reports abnormal walking, Reports unsteadiness, Reports dizziness, Reports frequent falls, Reports tingling/numbness/burning sensations (bilateral legs), Denies seizure-like activity Meds Home Medications Medication Instr
--- NOTE | 2021-04-28 10:04 | HMH.PHAINT ---
MEDICATION RECONCILIATION COMPLETED ON PATIENT USING EXTERNAL FILL HISTORY FROM PHARMACY AND KILEY REPORT. -CARINA CHIRINOSD
[2021-04-28 10:19] LABS: Lymphocytes % 64 % (10-50); Neutrophils % 36 % (42-76); Total Cells Counted 25
[2021-04-28 10:21] LABS: Anisocytosis 1+; Platelet Estimate Normal
[2021-04-28 10:50] VITALS: BMI 22.1
[2021-04-28 10:57] LABS: Hemoglobin 8.8 g/dL (12.2-16.2)
--- NOTE | 2021-04-28 13:15 | PC.NURSE ---
port accessed at this time with no difficulty noted. patient tolerated well. ac iv removed per patient request because of pain.
[2021-04-28 15:30] VITALS: BP 104/62; PULSE 94; RESP 16; TEMP 36.9; O2SAT 96
--- NOTE | 2021-04-28 18:39 | PC.NURSE ---
Patient is non tele and on room air. Patient is up ad-kevin/standby assist. Alert and oriented times four. Phone and call light in reach and bed in lowest position. Will continue to monitor.
[2021-04-28 20:00] VITALS: BP 132/77; PULSE 88; RESP 19; TEMP 36.6; O2SAT 95
[2021-04-29] VITALS: BP 110/62; PULSE 91; RESP 19; TEMP 36.5; O2SAT 96
[2021-04-29 04:00] VITALS: BP 102/51; PULSE 97; RESP 20; TEMP 36.5; O2SAT 97
[2021-04-29 04:49] VITALS: BMI 22.5
[2021-04-29 08:00] VITALS: BP 114/56; PULSE 91; RESP 16; TEMP 36.7; O2SAT 97
--- NOTE | 2021-04-29 08:45 | HMH.ACPN2 ---
Internal Medicine - PN: Subj *Date: 04/29/21 *Time: 08:45 Interval history: Patient continues to be nauseated this morning. She states she usually cannot eat before 1:00 in the afternoon. She did get some sleep during the night. Her biggest complaint is her leg pain. Gabapentin and pain pills relieve the discomfort. She denies chest pain or shortness of breath. She has been up to the bedside commode several times to void. Imodium has helped her diarrhea. Exam Vital signs and Labs for Last 24 Hours: Temp Pulse Resp BP Pulse Ox 97.7 F 97 H 20 102/51 L 97 04/29/21 04:00 04/29/21 04:00 04/29/21 04:00 04/29/21 04:00 04/29/21 04:00 Laboratory Results - last 24 hr 04/28/21 05:53: Hgb 8.8 L D, Total Counted 25, Neutrophils % (Manual) 36 L, Lymphocytes % (Manual) 64 H, Platelet Estimate Normal, Anisocytosis 1+ I & O for Last 24 hours: Intake & Output 04/26/21 04/27/21 04/28/21 04/29/21 11:59 11:59 11:59 11:59 Intake Total 360 / 360 360 / 360 Balance 360 / 360 360 / 360 Weight 130 lb 129 lb 6.017 oz 132 lb Microbiology Reports for the Last 24 Hours: Microbiology 04/27/21 15:40 Urine,Clean Catch Urine Culture - Preliminary - Constitutional no acute distress Comments: Sits on the bedside without difficulty for exam. - *Routine Respiratory Exam Present: CTA bilaterally (Anteriorly and posteriorly) - *Routine Cardiovascular Exam Present: RRR - *Routine Abdominal Exam Present: soft, normoactive bowel sounds. Absent: tenderness - *Routine Extremities Exam Absent: edema, calf tenderness - *Routine Neurological Exam Present: alert, oriented X3 Assessment and Plan (1) Diarrhea Status: Acute Qualifiers: Diarrhea type: unspecified type Qualified Code(s): R19.7 - Diarrhea, unspecified Category: Medical Code(s): R19.7 - Diarrhea, unspecified (2) Nausea Status: Acute Category: Medical Code(s): R11.0 - Nausea (3) Pulmonary embolism Status: Acute Qualifiers: Pulmonary embolism type: unspecified Chronicity: acute Acute cor pulmonale presence: without acute cor pulmonale Qualified Code(s): I26.99 - Other pulmonary embolism without acute cor pulmonale Category: Medical Code(s): I26.99 - Other pulmonary embolism without acute cor pulmonale (4) Transaminitis Status: Acute Category: Medical Code(s): R74.01 - Elevation of levels of liver transaminase levels (5) Coronary artery disease Status: Chronic Qualifiers: Coronary Disease-Associated Artery/Lesion type: [place] artery [place] vs. transplanted heart: [place] heart Associated angina: without angina Qualified Code(s): I25.10 - Atherosclerotic heart disease of [place] coronary artery without angina pectoris Category: Medical Code(s): I25.10 - Atherosclerotic heart disease of [place] coronary artery without angina pectoris (6) Fibromyalgia Status: Chronic Category: Medical Code(s): M79.7 - Fibromyalgia (7) HTN (hypertension) Status: Chronic Qualifiers: Hypertension type: essential hypertension Category: Medical Code(s): I10 - Essential (primary) hypertension (8) History of malignant neoplasm of ovary Status: Chronic Category: Medical Code(s): Z85.43 - Personal history of malignant neoplasm of ovary (9) Chemotherapy adverse reaction Status: Acute Category: Medical Code(s): T45.1X5A - Adverse effect of antineoplastic and immunosuppressive drugs, initial encounter - Assessment and plan all Dx Assessment and Plan for all problems:: Continue current care. Decrease IV fluids. Repeat labs. Encourage out of bed activity
[2021-04-29 09:31] LABS: Chloride 108 mmol/L (98-107); Potassium 3.4 mmoL/L (3.5-5.1); Sodium 137 mmol/L (136-145)
[2021-04-29 09:34] LABS: Alanine Aminotransferase 150 U/L (12-78); Albumin Level 2.8 g/dl (3.5-5.0); Albumin/Globulin Ratio 1.1 (1.1-1.8); Alkaline Phosphatase 73 U/L (38-126); Anion Gap 7.4 mEq/L (5-15); Aspartate Amino Transferase 182 U/L (14-36); Blood Urea Nitrogen 3 mg/dl (7-17); Carbon Dioxide 25 mmol/L (22.0-30.0); Creatinine Clearance Estimated 47 mL/min (50-200); Estimated Glomerular Filt Rate 121 ml/min (>60); GFR (African American) 146 ML/MIN (>60); Globulin 2.5 g/dL (1.3-3.2); Total Protein,Serum 5.3 g/dl (6.3-8.2)
[2021-04-29 09:35] LABS: Calcium 8.6 mg/dl (8.4-10.2); Glucose 101 mg/dl (74-100)
[2021-04-29 09:54] LABS: Bilirubin,Total 0.1 mg/dl (0.2-1.3)
[2021-04-29 10:00] LABS: Eosinophils % 0.5 % (0.1-12.0); Hemoglobin 7.7 g/dL (12.2-16.2); Lymphocytes # 0.6 K/mm3 (0.7-4.5); Lymphocytes % 62.6 % (10-50); Mean Corpuscular HGB Conc 32.1 g/dL (31.8-35.4); Mean Corpuscular Hemoglobin 28.8 pg (27.0-31.2); Mean Corpuscular Volume 89.6 fl (81-99); Mean Platelet Volume 9.6 fl (7.4-10.4); Monocytes # 0.1 K/mm3 (0.1-1.0); Monocytes % 5.3 % (1.7-9.3); Neutrophils # 0.3 K/mm3 (1.8-7.8); Neutrophils % 31.6 % (37.0-80.0); Platelet Count 139 K/mm3 (142-424); Red Blood Count 2.68 M/mm3 (4.20-5.40)
[2021-04-29 10:07] LABS: MANUAL DIFFERENTIAL MANUAL DIFFERENTIAL (MANUAL DIFF)
--- NOTE | 2021-04-29 10:07 | PC.NURSE ---
Called and reported critical WBC of 1.0 to Shanice @ this time.
[2021-04-29 10:27] LABS: Anisocytosis 1+; Eosinophils % 1 % (0-3); Hypochromasia 1+; Lymphocytes % 49 % (10-50); Microcytosis 1+; Monocytes % 5 % (2-9); Neutrophils % 42 % (42-76); Platelet Estimate Normal; Total Cells Counted 100
--- NOTE | 2021-04-29 11:02 | HMH.PHAINT ---
SPOKE WITH [facility] WITH DR. CURIEL'S OFFICE ABOUT PATIENT'S CHEMOTHERAPY. PATIENT RECEIVED CARBOPLATIN AND PACLITAXEL ON 04/21/21 AT [facility]. PATIENT DID NOT RECEIVE NEULASTA OR NEUPOGEN POST THERAPY. WBC NOW 1000K. OFFICE INDICATED THEY WOULD NOT TREAT UNTIL WBC IS 500.
[2021-04-29 16:00] VITALS: BP 104/60; PULSE 85; RESP 16; TEMP 36.7; O2SAT 98
[2021-04-29 18:26] VITALS: BP 126/73; PULSE 88; RESP 16; TEMP 37; O2SAT 95
--- NOTE | 2021-04-29 18:40 | PC.NURSE ---
NO ACUTE CHANGES. VSS. PT STATES SHE IS FEELING BETTER THAN SHE WAS. PT STATES COMPAZINE HAS REALLY HELPED WITH NAUSEA, ALTHOUGH DID CAUSE HER TO BE DROWSY. PTS AT BEDSIDE. CB IN REACH.
[2021-04-29 20:00] VITALS: RESP 16; O2SAT 95
[2021-04-30 04:00] VITALS: BP 124/72; PULSE 81; RESP 18; TEMP 36.7; O2SAT 98
[2021-04-30 05:31] VITALS: BMI 22.6
--- NOTE | 2021-04-30 07:21 | PC.NURSE ---
pt rested well most of the night, not issues reported.
[2021-04-30 07:45] VITALS: BP 129/79; PULSE 88; RESP 17; TEMP 36.7; O2SAT 98
--- NOTE | 2021-04-30 08:16 | HMH.ACPN2 ---
Internal Medicine - PN: Subj *Date: 04/30/21 *Time: 08:16 Interval history: Patient states that she feels so much better today. She has been able to eat and feels the Compazine has helped. She was out of bed yesterday and tolerated well. She is voiding QS. Diarrhea has greatly decreased. She continues to have some leg pain but it does not seem to be as severe. She denies chest pain and shortness of breath. Blood work has been drawn from [facility] during exam. Exam Vital signs and Labs for Last 24 Hours: Temp Pulse Resp BP Pulse Ox 98.1 F 88 17 129/79 98 04/30/21 07:45 04/30/21 07:45 04/30/21 07:45 04/30/21 07:45 04/30/21 07:45 Laboratory Results - last 24 hr 04/29/21 09:11: WBC 1.0 L*, RBC 2.68 L, Hgb 7.7 L, Hct 24.0 L, MCV 89.6, MCH 28.8, MCHC 32.1, RDW 18.0 H, Plt Count 139 L, MPV 9.6, Neut % (Auto) 31.6 L, Lymph % (Auto) 62.6 H, [place] % (Auto) 5.3, Eos % (Auto) 0.5, Baso % (Auto) 0.0 L, Neut # (Auto) 0.3 L*, Lymph # (Auto) 0.6 L, [place] # (Auto) 0.1, Eos # (Auto) 0.0, Baso # (Auto) 0.0, Total Counted 100, Neutrophils % (Manual) 42, Lymphocytes % (Manual) 49, Monocytes % (Manual) 5, Eosinophils % (Manual) 1, Blast Cells % 3.0, Platelet Estimate Normal, Hypochromasia 1+, Anisocytosis 1+, Microcytosis 1+ 04/29/21 09:11: Sodium 137, Potassium 3.4 L, Chloride 108 H, Carbon Dioxide 25, Anion Gap 7.4, BUN 3 L D, Creatinine 0.50 L, Estimated Creat Clear 47, Estimated GFR 121, Est GFR ( Amer) 146 D, Glucose 101 H, Calcium 8.6, Total Bilirubin 0.1 L, AST 182 H D, ALT 150 H, Alkaline Phosphatase 73, Total Protein 5.3 L, Albumin 2.8 L, Globulin 2.5, Albumin/Globulin Ratio 1.1 I & O for Last 24 hours: Intake & Output 04/27/21 04/28/21 04/29/21 04/30/21 11:59 11:59 11:59 11:59 Intake Total 360 / 360 600 / 600 1260 / 1260 Balance 360 / 360 600 / 600 1260 / 1260 Weight 130 lb 129 lb 6.017 oz 132 lb 133 lb Microbiology Reports for the Last 24 Hours: Microbiology 04/27/21 15:40 Urine,Clean Catch Urine Culture - Preliminary - Constitutional no acute distress Comments: Awake and alert and smiles with talking - *Routine Respiratory Exam Present: CTA bilaterally (Anteriorly and posteriorly) - *Routine Cardiovascular Exam Present: RRR - *Routine Abdominal Exam Present: soft, normoactive bowel sounds. Absent: tenderness - *Routine Extremities Exam Absent: edema, calf tenderness - *Routine Neurological Exam Present: alert, oriented X3 Assessment and Plan (1) Diarrhea Status: Acute Qualifiers: Diarrhea type: unspecified type Qualified Code(s): R19.7 - Diarrhea, unspecified Category: Medical Code(s): R19.7 - Diarrhea, unspecified (2) Nausea Status: Acute Category: Medical Code(s): R11.0 - Nausea (3) Pulmonary embolism Status: Acute Qualifiers: Pulmonary embolism type: unspecified Chronicity: acute Acute cor pulmonale presence: without acute cor pulmonale Qualified Code(s): I26.99 - Other pulmonary embolism without acute cor pulmonale Category: Medical Code(s): I26.99 - Other pulmonary embolism without acute cor pulmonale (4) Transaminitis Status: Acute Category: Medical Code(s): R74.01 - Elevation of levels of liver transaminase levels (5) Coronary artery disease Status: Chronic Qualifiers: Coronary Disease-Associated Artery/Lesion type: [place] artery [place] vs. transplanted heart: [place] heart Associated angina: without angina Qualified Code(s): I25.10 - Atherosclerotic heart disease of [place] coronary artery without angina pectoris Category: Medical Code(s): I25.10 - Atherosclerotic heart disease of [place] coronary artery without angina pectoris (6) Fibromyalgia Status: Chronic Category: Medical Code(s): M79.7 - Fibromyalgia (7) HTN (hypertension) Status: Chronic Qualifiers: Hypertension type: essential hypertension Category: Medical Code(s): I10 - Essential (primary) hypertension
[2021-04-30 08:45] LABS: Basophils % 0.4 % (0.1-2.0); Eosinophils % 0.3 % (0.1-12.0); Hematocrit 25.1 % (37.0-47.0); Hemoglobin 8.2 g/dL (12.2-16.2); Lymphocytes % 80.5 % (10-50); Mean Corpuscular HGB Conc 32.6 g/dL (31.8-35.4); Mean Corpuscular Hemoglobin 28.7 pg (27.0-31.2); Mean Corpuscular Volume 88.2 fl (81-99); Mean Platelet Volume 9.7 fl (7.4-10.4); Monocytes # 0.1 K/mm3 (0.1-1.0); Monocytes % 6.7 % (1.7-9.3); Neutrophils # 0.2 K/mm3 (1.8-7.8); Platelet Count 147 K/mm3 (142-424); Red Blood Count 2.85 M/mm3 (4.20-5.40); Red Cell Distribution Width 18.1 % (11.5-17.5); White Blood Count 1.3 K/mm3 (4.8-10.8)
--- NOTE | 2021-04-30 09:21 | CA_ITS ---
APPROVED REPORT Bilateral Lower Extremity Venous Study for DVT. Mechanical Manufacturing Technician: CN Indications leg pain; PE Vein Imaging CFV (R): compressive, spontaneous, phasic, augmentation SFJ (R): compressive, spontaneous, phasic, augmentation FEM (R): compressive, spontaneous, phasic, augmentation POP (R): compressive, spontaneous, phasic, augmentation PTV (R): compressive, spontaneous, phasic, augmentation GSV (R): compressive, spontaneous, phasic, augmentation SSV (R): compressive, spontaneous, phasic, augmentation Peroneals (R):compressive, spontaneous, phasic, augmentation GAS (R): compressive, spontaneous, phasic, augmentation CFV (L): compressive, spontaneous, phasic, augmentation SFJ (L): compressive, spontaneous, phasic, augmentation FEM (L): compressive, spontaneous, phasic, augmentation POP (L): compressive, spontaneous, phasic, augmentation PTV (L): compressive, spontaneous, phasic, augmentation GSV (L): compressive, spontaneous, phasic, augmentation SSV (L): compressive, spontaneous, phasic, augmentation Peroneals (L):compressive, spontaneous, phasic, augmentation GAS (L): compressive, spontaneous, phasic, augmentation Findings Color flow duplex demonstrates no evidence of DVT of the following bilateral lower extremity Veins:Common Femoral Vein, Femoral Vein, Popliteal Vein, Posterior Tibial Veins, Peroneal Veins. Negative for DVT. Conclusion Negative for DVT. Electronically signed by : Mike Shay MD 04/30/2021 17:51:22
[2021-04-30 09:39] LABS: Magnesium 0.8 mg/dl (1.6-2.3)
--- NOTE | 2021-04-30 09:59 | PC.NURSE ---
Called and reported mag of 0.[address] Sanchez's office.
[2021-04-30 10:23] LABS: Neutrophils % 12.1 % (37.0-80.0)
[2021-04-30 10:25] LABS: MANUAL DIFFERENTIAL MANUAL DIFFERENTIAL (MANUAL DIFF)
[2021-04-30 10:39] LABS: Lymphocytes % 79 % (10-50); Monocytes % 5 % (2-9); Neutrophils % 16 % (42-76); Total Cells Counted 100
[2021-04-30 10:40] LABS: Anisocytosis 1+; Hypochromasia 1+; Platelet Estimate Normal
[2021-04-30 15:47] VITALS: BP 96/63; PULSE 79; RESP 16; TEMP 36.6; O2SAT 99
--- NOTE | 2021-04-30 18:08 | PC.NURSE ---
Report received from Li (2nd floor RN)
[2021-04-30 18:30] LABS: Magnesium 2.6 mg/dl (1.6-2.3)
--- NOTE | 2021-04-30 18:30 | PC.NURSE ---
Pt arrived to unit to room 280 via bed with assist x2. Pt accompanied by her .
--- NOTE | 2021-04-30 19:02 | PC.NURSE ---
Report given to Pina Cruz RN
--- NOTE | 2021-04-30 19:03 | PC.NURSE ---
Report given to ALEISHA Ponce in OB unit. Pt to room 280 @ approx 1860.
[2021-04-30 19:50] VITALS: O2SAT 99
[2021-04-30 20:40] VITALS: BP 106/64; PULSE 68; RESP 18; TEMP 36.5; O2SAT 99
[2021-05-01 04:00] VITALS: BP 109/70; PULSE 96; RESP 16; TEMP 36.7; O2SAT 97
--- NOTE | 2021-05-01 04:20 | PC.NURSE ---
NO ACUTE CHANGES THIS SHIFT. PATIENT HAS AMBULATED INDEPENDENTLY AND REPORTS HAVING LESS WEAKNESS THAN SHE HAD PREVIOUSLY. A&O X4. BOWELS ACTIVE X4 QUADRANTS AND LUNGS CTAB. IMPLANTED PORT IN CHEST IS PATENT. CALL SAUNDERS IN REACH.
[2021-05-01 07:25] LABS: Basophils % 0.2 % (0.1-2.0); Chloride 107 mmol/L (98-107); Eosinophils % 0.3 % (0.1-12.0); Hematocrit 25.2 % (37.0-47.0); Hemoglobin 8.4 g/dL (12.2-16.2); Lymphocytes # 1.2 K/mm3 (0.7-4.5); Lymphocytes % 78.9 % (10-50); Mean Corpuscular HGB Conc 33.2 g/dL (31.8-35.4); Mean Corpuscular Hemoglobin 29.1 pg (27.0-31.2); Mean Corpuscular Volume 87.4 fl (81-99); Mean Platelet Volume 9.8 fl (7.4-10.4); Monocytes # 0.2 K/mm3 (0.1-1.0); Monocytes % 13.6 % (1.7-9.3); Neutrophils # 0.1 K/mm3 (1.8-7.8); Platelet Count 160 K/mm3 (142-424); Potassium 3.3 mmoL/L (3.5-5.1); Red Blood Count 2.89 M/mm3 (4.20-5.40); Red Cell Distribution Width 18.6 % (11.5-17.5); Sodium 139 mmol/L (136-145); White Blood Count 1.5 K/mm3 (4.8-10.8)
[2021-05-01 07:28] LABS: Anion Gap 8.3 mEq/L (5-15); Blood Urea Nitrogen 6 mg/dl (7-17); Calcium 8.6 mg/dl (8.4-10.2); Carbon Dioxide 27 mmol/L (22.0-30.0); Creatinine Clearance Estimated 48 mL/min (50-200); Estimated Glomerular Filt Rate 98 ml/min (>60); GFR (African American) 119 ML/MIN (>60); Glucose 78 mg/dl (74-100)
[2021-05-01 07:32] LABS: Neutrophils % 6.9 % (37.0-80.0)
[2021-05-01 07:38] LABS: MANUAL DIFFERENTIAL MANUAL DIFFERENTIAL (MANUAL DIFF)
[2021-05-01 08:00] VITALS: BP 119/73; PULSE 78; RESP 18; TEMP 36.5; O2SAT 97
--- NOTE | 2021-05-01 08:46 | HMH.ACPN2 ---
Internal Medicine - PN: Subj *Date: 05/01/21 *Time: 08:46 Interval history: Patient states she is feeling better today. She does have some nausea but was able to eat some of her breakfast. She did not rest well last night and thinks it was due to the move from the second floor to the OB unit. She denies any pain today. Exam Vital signs and Labs for Last 24 Hours: Temp Pulse Resp BP Pulse Ox 98.0 F 96 H 16 109/70 L 97 05/01/21 04:00 05/01/21 04:00 05/01/21 04:00 05/01/21 04:00 05/01/21 04:00 Laboratory Results - last 24 hr 04/30/21 08:00: WBC 1.3 L* D, RBC 2.85 L, Hgb 8.2 L, Hct 25.1 L, MCV 88.2, MCH 28.7, MCHC 32.6, RDW 18.1 H, Plt Count 147, MPV 9.7, Neut % (Auto) 12.1 L, Lymph % (Auto) 80.5 H, [place] % (Auto) 6.7, Eos % (Auto) 0.3, Baso % (Auto) 0.4, Neut # (Auto) 0.2 L*, Lymph # (Auto) 1.0, [place] # (Auto) 0.1, Eos # (Auto) 0.0, Baso # (Auto) 0.0, Total Counted 100, Neutrophils % (Manual) 16 L, Lymphocytes % (Manual) 79 H, Monocytes % (Manual) 5, Platelet Estimate Normal, Hypochromasia 1+, Anisocytosis 1+ 04/30/21 08:00: Magnesium 0.8 L 04/30/21 17:42: Magnesium 2.6 H D 05/01/21 07:03: WBC 1.5 L*, RBC 2.89 L, Hgb 8.4 L, Hct 25.2 L, MCV 87.4, MCH 29.1, MCHC 33.2, RDW 18.6 H, Plt Count 160, MPV 9.8, Neut % (Auto) 6.9 L, Lymph % (Auto) 78.9 H, [place] % (Auto) 13.6 H, Eos % (Auto) 0.3, Baso % (Auto) 0.2, Neut # (Auto) 0.1 L*, Lymph # (Auto) 1.2, [place] # (Auto) 0.2, Eos # (Auto) 0.0, Baso # (Auto) 0.0 05/01/21 07:03: Sodium 139, Potassium 3.3 L, Chloride 107, Carbon Dioxide 27, Anion Gap 8.3, BUN 6 L D, Creatinine 0.60, Estimated Creat Clear 48, Estimated GFR 98, Est GFR ( Amer) 119, Glucose 78, Calcium 8.6 I & O for Last 24 hours: Intake & Output 04/28/21 04/29/21 04/30/21 05/01/21 11:59 11:59 11:59 11:59 Intake Total 360 / 360 600 / 600 1260 / 1260 360 / 360 Balance 360 / 360 600 / 600 1260 / 1260 360 / 360 Weight 129 lb 6.017 oz 132 lb 133 lb - Constitutional no acute distress - *Routine Respiratory Exam Present: CTA bilaterally - *Routine Cardiovascular Exam Present: RRR - *Routine Abdominal Exam Present: soft, normoactive bowel sounds, tenderness (diffuse) - *Routine Extremities Exam Absent: cyanosis, clubbing, edema - *Routine Skin Exam Present: warm. Absent: rash - *Routine Neurological Exam Present: alert, oriented X3 Assessment and Plan (1) Diarrhea Status: Acute Qualifiers: Diarrhea type: unspecified type Qualified Code(s): R19.7 - Diarrhea, unspecified Category: Medical Code(s): R19.7 - Diarrhea, unspecified (2) Nausea Status: Acute Category: Medical Code(s): R11.0 - Nausea (3) Pulmonary embolism Status: Acute Qualifiers: Pulmonary embolism type: unspecified Chronicity: acute Acute cor pulmonale presence: without acute cor pulmonale Qualified Code(s): I26.99 - Other pulmonary embolism without acute cor pulmonale Category: Medical Code(s): I26.99 - Other pulmonary embolism without acute cor pulmonale (4) Transaminitis Status: Acute Category: Medical Code(s): R74.01 - Elevation of levels of liver transaminase levels (5) Coronary artery disease Status: Chronic Qualifiers: Coronary Disease-Associated Artery/Lesion type: [place] artery [place] vs. 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
--- NOTE | 2021-05-01 09:14 | PC.NURSE ---
at to see pt.
[2021-05-01 09:18] VITALS: O2SAT 97
[2021-05-01 09:56] LABS: Lymphocytes % 88 % (10-50); Monocytes % 5 % (2-9); Neutrophils % 7 % (42-76); Total Cells Counted 100
[2021-05-01 09:57] LABS: Platelet Estimate Normal; RBC Morphology Normal
--- NOTE | 2021-05-04 15:15 | HMH.DCSUM ---
General - General Admission date:: 04/27/21 Discharge date: 05/01/21 HPI HPI: Ms. Freitas is a 75-year-old female with malignant pelvic mass diagnosed 11/22/2020 followed by recent surgery for removal of the mass and has currently completed 6 rounds of chemotherapy through [facility] in [facility]. She also has a history of hypothyroidism, hyperlipidemia, lumbar disc disease, coronary artery disease, and fibromyalgia. She had her last chemo a week ago. Initially she felt fine but then had severe nausea and vomiting. She has kept a diarrhea for several weeks. She has been unable to eat or drink. She states she progressively weakened and had 3 episodes of syncope during the past week. Thus her insisted that she come to the emergency room for evaluation. She had a CT of the abdomen/pelvis which showed no acute abdominal findings but did reveal a right lower lung pulmonary embolism. CT of the chest showed no metastatic disease and no acute findings although the latter was done without contrast. Laboratory data: Stool studies were all negative. Blood chemistries showed initially AST of 613 with a decreased today at 258 and Alt was 354 on admission and decreased to 195 today. Bilirubin was normal. Electrolytes showed were normal with a BUN of 17 and creatinine 0.7. CBC showed a low white blood cell count from 3.1 down to 1.2 this morning with a hemoglobin of 11.9 hematocrit of 36.7. At the time of this exam patient does not feel well at all. She was hungry but immediately was nauseated when trying to eat. She has had several diarrhea stools since admission. She is voiding QS. She denies chest pain and shortness of breath at this time. Hospital Course Hospital Course: The patient was admitted and started on IV fluids and Compazine was added. She continued to be nauseated. Her biggest complaint was leg pain and gabapentin and pain pills relieved some of this discomfort. Imodium did help her diarrhea. Her IV fluids were decreased and she was encouraged to get out of bed. By 04/30/2021, she felt much better. She was able to eat and felt the Compazine was helping. She was able to get out of bed and tolerated this well. Her diarrhea improved. Her leg pain improved as well. She did have a venous Doppler showing no DVT. By 05/01/2021 she was anxious to go home. She denies any pain. Her white blood cell count was low but her H&H had improved. She was stable to be discharged home and will need to see heme/onc in 1 week. Objective Vital signs: Temp Pulse Resp BP Pulse Ox 97.7 F 78 18 119/73 97 05/01/21 08:00 05/01/21 08:00 05/01/21 08:00 05/01/21 08:00 05/01/21 09:18 Narrative: - Constitutional no acute distress - *Routine HEENT Exam Head: Present: normocephalic, atraumatic Eye: Present: PERRL. Absent: conjunctival icterus, scleral injection ENT: Present: mucous membranes moist, other (aphthous ulcer front of hard palate) - *Routine Neck Exam Present: thyromegaly. Absent: carotid bruit, lymphadenopathy - *Routine Respiratory Exam Present: CTA bilaterally (A&P) - *Routine Cardiovascular Exam Present: RRR - *Routine Abdominal Exam Present: soft, normoactive bowel sounds, surgical scars (well healed). Absent: tenderness, distended - *Routine Rectal Exam Rectal:: deferred - *Routine Genitalia Exam Genitalia:: deferred - *Routine Extremities Exam Present: full ROM. 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
== END 2021-05-01 12:07 | disposition home or self-care (01) ==
LOC: ER 16:16 → 2ND 17:57 → OB 04-30 18:10
PROVIDERS: Nurse Practitioner Family; Admitting Provider Family Medicine; Emergency Provider Family Medicine; Visit Provider Family Medicine
DX: T45.1X5A Adverse effect of antineoplastic and immunosuppressive drugs, initial encounter (principal); I26.99 Other pulmonary embolism without acute cor pulmonale; I10 Essential (primary) hypertension; C56.9 Malignant neoplasm of unspecified ovary; R11.2 Nausea with vomiting, unspecified; Z20.822 Contact with and (suspected) exposure to COVID-19; Z79.899 Other long term (current) drug therapy; R55 Syncope and collapse; M79.661 Pain in right lower leg; M79.662 Pain in left lower leg
CPT/HCPCS: G0378; 36415; 71250; 74177; 80048; 80053; 81001; 83735; 84484; 85007; 85025; 87086; 87088; 87186; 87506; 93970; 96365; 99284; C9803; J1642; J2405; Q9967; U0003; U0005

== ENCOUNTER 2021-06-02 14:35 | Outpatient (CLI) | payer MEDICARE, SELFPAY ==
[2021-06-02 14:40] VITALS: BMI 21.6
[2021-06-02 15:11] LABS: Basophils # 0.1 K/mm3 (0-0.2); Basophils % 1.5 % (0.1-2.0); Eosinophils # 0.1 K/mm3 (0.0-0.4); Eosinophils % 2.4 % (0.1-12.0); Hematocrit 36.5 % (37.0-47.0); Hemoglobin 11.3 g/dL (12.2-16.2); Lymphocytes # 1.9 K/mm3 (0.7-4.5); Lymphocytes % 31.8 % (10-50); Mean Corpuscular Hemoglobin 29.8 pg (27.0-31.2); Mean Corpuscular Volume 96.1 fl (81-99); Mean Platelet Volume 8.2 fl (7.4-10.4); Monocytes # 0.3 K/mm3 (0.1-1.0); Monocytes % 4.8 % (1.7-9.3); Neutrophils # 3.5 K/mm3 (1.8-7.8); Neutrophils % 59.5 % (37.0-80.0); Platelet Count 220 K/mm3 (142-424); Red Blood Count 3.79 M/mm3 (4.20-5.40); Red Cell Distribution Width 16.4 % (11.5-17.5); White Blood Count 5.9 K/mm3 (4.8-10.8)
[2021-06-02 15:24] LABS: Alanine Aminotransferase 118 U/L (12-78); Albumin Level 3.9 g/dl (3.5-5.0); Albumin/Globulin Ratio 1.3 (1.1-1.8); Alkaline Phosphatase 83 U/L (38-126); Anion Gap 11.1 mEq/L (5-15); Aspartate Amino Transferase 240 U/L (14-36); Bilirubin,Total 0.3 mg/dl (0.2-1.3); Blood Urea Nitrogen 12 mg/dl (7-17); Calcium 9.7 mg/dl (8.4-10.2); Carbon Dioxide 28 mmol/L (22.0-30.0); Chloride 103 mmol/L (98-107); Creatinine Clearance Estimated 45 mL/min (50-200); Estimated Glomerular Filt Rate 70 ml/min (>60); GFR (African American) 85 ML/MIN (>60); Glucose 106 mg/dl (74-100); Potassium 4.1 mmoL/L (3.5-5.1); Sodium 138 mmol/L (136-145); Total Protein,Serum 6.9 g/dl (6.3-8.2)
== END 2021-06-02 15:05 | disposition home or self-care (01) ==
LOC: INF 14:37
PROVIDERS: Family Medicine; PCP Family Medicine; Visit Provider Family Medicine
DX: C57.02 Malignant neoplasm of left fallopian tube (principal); Z45.2 Encounter for adjustment and management of vascular access device
CPT/HCPCS: 80053; 85025; J1642

== ENCOUNTER → 2021-06-20 16:04 | Outpatient (CLI) | payer MEDICARE, SELFPAY | PROVIDERS: Visit Provider Nurse Practitioner | DX: U07.1 COVID-19 (principal) | CPT/HCPCS: C9803; U0003; U0005 ==

== ENCOUNTER → 2021-07-25 14:45 | Outpatient (CLI) | payer MEDICARE, SELFPAY ==
--- NOTE | 2021-07-25 14:53 | CA_ITS ---
APPROVED REPORT EXAM: Comprehensive 2D, Doppler, and color-flow Echocardiogram Popcorn Attendant: Emerald Quiñones RVT Ht: 5 ft 4 in Wt: 129lbs BSA: 1.62 BP: 117/68 mmHg Indications: CAD,SOA,HX CHEMO FOR OVARIAN CA,HTN,HLD,GERD 2D Dimensions LVOT 1.93 cm (M/F) 1.5-2.5 LA Volume 16.00 mL LA Volume Index 9.87 mL/m2 (M/F) 16-34 M-Mode Dimensions RVDd 1.92 cm (0.9-2.6) LA Diam 2.99 cm (1.9-4.0) LVDd 3.56 cm (3.5-5.7) Ao Diam 2.82 cm (2.0-3.7) LVDs 2.53 cm (3.5-5.7) IVSd 0.96 cm (0.6-1.1) PWd 0.57 cm (0.6-1.1) EF (Teich) 56.60% FS 28.90% EDV (Teich) 53.00 mL TAPSE 1.47 (<1.7) ESV (Teich) 23.00 mL LV Diastology MED E' 5.90 (< 7 cm/sec) LAT E' 5.40 (<10 cm/sec) Aortic Valve AO Peak GR. 2.10 mmHg Pulmonary Valve PV Peak Velocity 47.00 (50-150 cm/s) Left Ventricle Left atrium is mildly enlarged, left ventricle is normal size, mild concentric left ventricular hypertrophy, visually estimated ejection fraction 55% with no regional wall motion abnormality, grade 1 diastolic dysfunction seen without tissue Doppler evidence of raise left atrial pressure. Right Ventricle Right atrium and right ventricle are normal size and contractility. Aortic Valve Aortic valve is minimally thickened and fibrosed, there is no aortic stenosis or aortic insufficiency. Mitral Valve Mitral valve grossly normal, there is trace mitral regurgitation. Tricuspid Valve Tricuspid grossly normal, there is trace tricuspid regurgitation, tricuspid regurgitation jet velocity is inadequate for calculation of the right ventricular systolic pressure. Pulmonic Valve Pulmonic valve is poorly visualized. Great Vessels Aortic root is normal size. Inferior vena cava normal size with normal inspiratory collapse. Pericardium No significant pericardial effusion. Conclusion 1. Mildly enlarged left atrium, normal left ventricular size, mild concentric left ventricular hypertrophy, visually estimated ejection fraction 55% with no regional wall motion abnormality, grade 1 diastolic dysfunction seen without tissue Doppler evidence of raise left atrial pressure. 2. Trace mitral and tricuspid regurgitation. 3. No significant pericardial effusion. 4. Inferior vena cava is normal size with normal inspiratory collapse. Electronically signed by : Frandy Mario MD 07/25/2021 15:31:48
== END ==
PROVIDERS: PCP Family Medicine; Visit Provider Internal Medicine Cardiovascular Disease
DX: E78.2 Mixed hyperlipidemia (principal); I10 Essential (primary) hypertension; I25.10 Atherosclerotic heart disease of native coronary artery without angina pectoris; R06.09 Other forms of dyspnea; Z86.711 Personal history of pulmonary embolism
CPT/HCPCS: 93306

== ENCOUNTER 2021-08-27 13:00 | Outpatient (RCR) | payer MEDICARE, SELFPAY | END 2021-08-27 13:05 | disposition home or self-care (01) | LOC: PT 13:00 | PROVIDERS: PCP Family Medicine; Visit Provider Obstetrics & Gynecology | DX: M62.81 Muscle weakness (generalized) (principal); R53.83 Other fatigue | CPT/HCPCS: 97110; 97163; 97164 ==

== ENCOUNTER 2021-08-29 15:23 | Outpatient (RCR) | payer MEDICARE, SELFPAY ==
--- NOTE | 2021-08-29 18:04 | HMH.SLAPHASI ---
Speech & Language Evaluation Speech/Language Aphasia Evaluation Start: 08/29/21 17:34 Freq: once Status: Complete Protocol: Document 08/29/21 17:34 MELISSA (Rec: 08/29/21 18:04 MELISSA [id number]) Aphasia Assessment/Goals/Plan Assessment Date of Evaluation: 08/29/21 Evaluation Type Initial Certification Assessment/Problems Cognitive impairments post chemo treatment Does Patient Qualify for Service Yes Qualify/Failure Comment Based on the results of today' s evaluation, Shu qualifies for speech therapy services to target cognitive skills and word finding. Plan Pt will be seen # times/week 2 for # weeks 12 Anticipate reaching STG in # weeks 8 Anticipate reaching LTG in # weeks 12 Pt/Guardian verbally ack understanding Yes of dx/prognosis/goals Pt/Guardian verbally ack understanding Yes of/consent to tx prog G -code Required No STG-Attending/Orientation/Memory Delayed Recall 80 Memory Recall 80 STG-Divergent Thinking Deductive Reasoning 80 Mcfp Goals Increase verbal expression skills to Yes communicate w/family & friends. Increase cognitive skills to communicate Yes w/family & friends Education Instructions provided Education regarding completion of HEP will be provided following each treatment session. 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 She stated, I forget a lot . Rehab Services Assessed Speech therapy Is this evaluation r/t stroke? No Vision Visual Difficulty Impaired Comment Impaired vision. Will be having cataract surgery on September 09 and . Language Primary Language [place] Lang/Spoken in Home [place] Therapy History Seen by other [facility] therapists No Aphasia Evaluations Communication Speech Intelligibility Speech is intelligible at all levels. Auditory Comprehension Yes: Word Level Sentences Following Directions
== END 2021-08-29 15:25 | disposition home or self-care (01) ==
LOC: ST 15:23
PROVIDERS: PCP Family Medicine; Visit Provider Family Medicine
DX: R41.89 Other symptoms and signs involving cognitive functions and awareness (principal); T45.1X5A Adverse effect of antineoplastic and immunosuppressive drugs, initial encounter; R47.89 Other speech disturbances
CPT/HCPCS: 92523

== ENCOUNTER 2021-09-04 08:50 | Emergency (ER) | payer MEDICARE, SELFPAY ==
[2021-09-04] VITALS (7 sets, daily range): BP systolic 102–132; BP diastolic 52–83; PULSE 73–105; RESP 16–18; TEMP 36.4; O2SAT 95–100; BMI 22.1
--- NOTE | 2021-09-04 09:11 | HMH.EDGENADL ---
ED Disposition Clinical Impression: Scalp hematoma Qualifiers: Encounter type: initial encounter Qualified Code(s): S00.03XA - Contusion of scalp, initial encounter Fall Qualifiers: Encounter type: initial encounter Qualified Code(s): W19.XXXA - Unspecified fall, initial encounter Disposition: Home, Self-Care Condition on Discharge: Good Instructions: DI for Closed Head Injury Additional Instructions: Additional instructions for HEAD INJURY: Make appointment to see your primary care provider for follow-up. Return immediately if severe headache, vomiting, problems with vision or speech, numbness or weakness of the extremities, or severe neck pain. Referrals: Tyson Sanchez MD [Primary Care Provider] - - Critical Care Critical Care Time: No Attestation: On 09/04/21, the high probability of a clinically significant, sudden or life threatening deterioration of the following system(s) required my full and direct attention, intervention and personal management. The time I documented below is in addition to time spent performing reported procedures but includes the following listed in this critical care notation. Medical Decision Making - Scooter Inquiry Pt receiving controlled substance: No Vital Signs: 09/04/21 08:50 09/04/21 09:00 09/04/21 09:30 Temperature 97.6 F Temperature Source Oral Pulse Rate 82 76 Pulse Rate [Orthostatic Lying Right Radial] Pulse Rate [Orthostatic Sitting Right Radial] Pulse Rate [Orthostatic Standing Right Radial] Pulse Rate [Right Radial] 80 Respiratory Rate 16 Blood Pressure 114/76 115/75 Blood Pressure [Orthostatic Lying Right Arm] Blood Pressure [Orthostatic Sitting Right Arm] Blood Pressure [Orthostatic Standing Right Arm] Blood Pressure [Right Arm] 132/72 Blood Pressure Mean [Right Arm] 92 02 Sat by Pulse Oximetry 97 98 98 Oxygen Delivery Method Room Air Room Air Room Air 09/04/21 10:06 09/04/21 10:09 09/04/21 10:17 Temperature Temperature Source Pulse Rate 73 105 H Pulse Rate [Orthostatic Lying Right Radial] 85 Pulse Rate [Orthostatic Sitting Right Radial] 82 Pulse Rate [Orthostatic Standing Right Radial] 94 H Pulse Rate [Right Radial] Respiratory Rate Blood Pressure 109/62 L 119/52 L Blood Pressure [Orthostatic Lying Right Arm] 102/67 L Blood Pressure [Orthostatic Sitting Right Arm] 115/79 Blood Pressure [Orthostatic Standing Right Arm] 112/83 Blood Pressure [Right Arm] Blood Pressure Mean [Right Arm] 02 Sat by Pulse Oximetry 100 Oxygen Delivery Method Room Air - Lab Data Lab Results 09/04/21 09:30: WBC 6.2, RBC 4.40, Hgb 12.5, Hct 38.1, MCV 86.6, MCH 28.5, MCHC 32.9, RDW 14.3, Plt Count 223, MPV 7.9, Neut % (Auto) 52.5, Lymph % (Auto) 38.2, [place] % (Auto) 5.5, Eos % (Auto) 2.9, Baso % (Auto) 0.9, Neut # (Auto) 3.2, Lymph # (Auto) 2.4, [place] # (Auto) 0.3, Eos # (Auto) 0.2, Baso # (Auto) 0.1 09/04/21 09:30: Sodium 140, Potassium 3.6, Chloride 108 H, Carbon Dioxide 24, Anion Gap 11.6, BUN 9, Creatinine 0.70, Estimated Creat Clear 46, Estimated GFR 82, Est GFR ( Amer) 99, Glucose 97, Calcium 9.4, Total Bilirubin 0.3, AST 89 H, ALT 94 H, Alkaline Phosphatase 101, Troponin I < 0.01, Total Protein 6.6, Albumin 3.7, Globulin 2.9, Albumin/Globulin Ratio 1.3 Result diagrams: 09/04/21 09:30 09/04/21 09:30 Orders (Tests/Meds): ED MEDICATIONS Generic Name Dose Route Start Last Admin Trade Name Freq PRN Reason Stop Dose Admin Sodium Chloride 10 ml 09/04/21 09:15 Sodium Chloride 0.9% 10ml Flush Syringe IV 10/04/21 09:14 NEEDED PRN Maintain IV Site ORDERS Category Date Time Status Troponin I Q3H Lab 09/04/21 12:30 Ordered Troponin I Q3H Lab 09/04/21 15:30 Ordered - CT Data CT Scan: Head, C-Spine Time Received: 10:[address] Reviewed: Yes: I have viewed the radiologist's interpretation Findings Narrative: Procedure(s): CT head/brain wo con Accession Num
--- NOTE | 2021-09-04 09:12 | PC.NURSE ---
ED MD at
--- NOTE | 2021-09-04 09:17 | CT_ITS ---
FINAL REPORT CLINICAL HISTORY: fall, hit back of head with knot, on dylan COMPARISON: 12/30/2018 FINDINGS: Axial images of the head were obtained without contrast. Coronal reformatted images were also obtained.This study was performed with techniques to keep radiation doses as low as reasonably achievable (ALARA). Individualized dose reduction techniques using automated exposure control or adjustment of mA and/or kV according to the patient''s size were employed. There is no evidence of intracranial hemorrhage or mass. The ventricular size is within normal limits. There is no evidence of shift of the midline structures. No abnormal extra axial fluid collection is identified. No skull abnormality is seen on the bone window images. IMPRESSION: No acute intracranial abnormality. Reviewed, Interpreted and Dictated by Ildefonso Manzano III, MD Transcribed by Patricia Castillo Authenticated by Ildefonso Manzano III, MD on 09/04/2021 10:41:44 AM [facility]
--- NOTE | 2021-09-04 09:17 | CT_ITS ---
FINAL REPORT CLINICAL HISTORY: fall, hit back of head with knot, on eliquis FINDINGS: Axial CT images of the cervical spine were obtained without contrast. Sagittal and coronal reformatted images were also obtained. This study was performed with techniques to keep radiation doses as low as reasonably achievable (ALARA). Individualized dose reduction techniques using automated exposure control or adjustment of mA and/or kV according to the patient''s size were employed. There is no evidence of fracture or dislocation. There are multilevel moderate degenerative changes and multilevel neural foraminal narrowing. There is mild central canal stenosis at C5-6 and C6-7. Note is made of multiple bilateral thyroid nodules. IMPRESSION: Multilevel degenerative changes as above. Bilateral thyroid nodules. Recommend thyroid ultrasound. Reviewed, Interpreted and Dictated by Ildefonso Manzano III, MD Transcribed by Patricia Castillo Authenticated by Ildefonso Manzano III, MD on 09/04/2021 10:41:40 AM [facility]
--- NOTE | 2021-09-04 09:24 | ECG_ITS ---
APPROVED REPORT Exam: Resting ECG HR:75 bpm ECG Measurements Heart Rate 75 AXES AL 174 P 70 QRSd 82 QRS 53 QT 380 T 50 QTc 409 Conclusion SINUS RHYTHM NORMAL ECG UNCONFIRMED REPORT Electronically signed by : Jacob Waddell MD 09/05/2021 14:51:53
--- NOTE | 2021-09-04 09:35 | PC.NURSE ---
patient to CT with dietary tech by zenaida
[2021-09-04 09:45] LABS: Basophils # 0.1 K/mm3 (0-0.2); Basophils % 0.9 % (0.1-2.0); Eosinophils # 0.2 K/mm3 (0.0-0.4); Eosinophils % 2.9 % (0.1-12.0); Hematocrit 38.1 % (37.0-47.0); Hemoglobin 12.5 g/dL (12.2-16.2); Lymphocytes # 2.4 K/mm3 (0.7-4.5); Lymphocytes % 38.2 % (10-50); Mean Corpuscular HGB Conc 32.9 g/dL (31.8-35.4); Mean Corpuscular Hemoglobin 28.5 pg (27.0-31.2); Mean Corpuscular Volume 86.6 fl (81-99); Mean Platelet Volume 7.9 fl (7.4-10.4); Monocytes # 0.3 K/mm3 (0.1-1.0); Monocytes % 5.5 % (1.7-9.3); Neutrophils # 3.2 K/mm3 (1.8-7.8); Neutrophils % 52.5 % (37.0-80.0); Platelet Count 223 K/mm3 (142-424); Red Cell Distribution Width 14.3 % (11.5-17.5); White Blood Count 6.2 K/mm3 (4.8-10.8)
--- NOTE | 2021-09-04 09:47 | PC.NURSE ---
patient back from CT with respiratory care technician by zenaida
[2021-09-04 09:55] LABS: Alanine Aminotransferase 94 U/L (12-78); Albumin Level 3.7 g/dl (3.5-5.0); Albumin/Globulin Ratio 1.3 (1.1-1.8); Alkaline Phosphatase 101 U/L (38-126); Anion Gap 11.6 mEq/L (5-15); Aspartate Amino Transferase 89 U/L (14-36); Bilirubin,Total 0.3 mg/dl (0.2-1.3); Blood Urea Nitrogen 9 mg/dl (7-17); Calcium 9.4 mg/dl (8.4-10.2); Carbon Dioxide 24 mmol/L (22.0-30.0); Chloride 108 mmol/L (98-107); Creatinine Clearance Estimated 46 mL/min (50-200); Estimated Glomerular Filt Rate 82 ml/min (>60); GFR (African American) 99 ML/MIN (>60); Globulin 2.9 g/dL (1.3-3.2); Glucose 97 mg/dl (74-100); Potassium 3.6 mmoL/L (3.5-5.1); Sodium 140 mmol/L (136-145); Total Protein,Serum 6.6 g/dl (6.3-8.2)
[2021-09-04 10:13] LABS: Troponin I < 0.01 ng/ml (0.00-0.034)
--- NOTE | 2021-09-04 10:47 | PC.NURSE ---
ED MD at for update on POC
== END 2021-09-04 11:09 | disposition home or self-care (01) ==
PROVIDERS: Emergency Provider Emergency Medicine; PCP Family Medicine
DX: S00.03XA Contusion of scalp, initial encounter (principal); W18.39XA Other fall on same level, initial encounter; Y92.019 Unspecified place in single-family (private) house as the place of occurrence of the external cause; I25.10 Atherosclerotic heart disease of native coronary artery without angina pectoris; I10 Essential (primary) hypertension; Z86.711 Personal history of pulmonary embolism; Z79.01 Long term (current) use of anticoagulants; Z79.899 Other long term (current) drug therapy; K21.9 Gastro-esophageal reflux disease without esophagitis; E78.5 Hyperlipidemia, unspecified
CPT/HCPCS: 70450; 72125; 80053; 84484; 85025; 93005; 99284

== ENCOUNTER → 2021-09-06 16:48 | Outpatient (CLI) | payer MEDICARE, SELFPAY | PROVIDERS: PCP Family Medicine; Visit Provider Ophthalmology | DX: Z01.812 Encounter for preprocedural laboratory examination (principal); Z11.52 Encounter for screening for COVID-19 | CPT/HCPCS: C9803; U0003; U0005 ==

== ENCOUNTER 2021-09-09 08:30 | Day surgery (SDC) | payer MEDICARE, SELFPAY ==
[2021-09-05 13:15] VITALS: BMI 22.1
[2021-09-09 08:48] VITALS: BP 108/58; PULSE 90; RESP 16; TEMP 36.7; O2SAT 96
[2021-09-09 10:07] VITALS: BP 114/86; PULSE 83; RESP 16; TEMP 36.6; O2SAT 97
--- NOTE | 2021-09-09 13:17 | PC.NURSE ---
Mediport flushed with 500unit heparin flush and then d/c. Pt tolerated well.
== END 2021-09-09 10:25 | disposition home or self-care (01) ==
LOC: OR 08:31
PROVIDERS: PCP Family Medicine; Visit Provider Ophthalmology
DX: H25.813 Combined forms of age-related cataract, bilateral (principal); H02.831 Dermatochalasis of right upper eyelid; H02.834 Dermatochalasis of left upper eyelid; F41.9 Anxiety disorder, unspecified; M19.90 Unspecified osteoarthritis, unspecified site; I48.91 Unspecified atrial fibrillation; K21.9 Gastro-esophageal reflux disease without esophagitis; E03.9 Hypothyroidism, unspecified; Z85.42 Personal history of malignant neoplasm of other parts of uterus; Z85.43 Personal history of malignant neoplasm of ovary; Z88.6 Allergy status to analgesic agent; Z88.8 Allergy status to other drugs, medicaments and biological substances; Z79.899 Other long term (current) drug therapy
CPT/HCPCS: 66984; J1642; V2632

== ENCOUNTER → 2021-09-22 11:23 | Outpatient (CLI) | payer MEDICARE, SELFPAY | PROVIDERS: Visit Provider Ophthalmology | DX: Z01.812 Encounter for preprocedural laboratory examination (principal); Z11.52 Encounter for screening for COVID-19 | CPT/HCPCS: C9803; U0003; U0005 ==

== ENCOUNTER 2021-09-23 08:10 | Day surgery (SDC) | payer MEDICARE, SELFPAY ==
[2021-09-23 08:32] VITALS: BP 122/70; PULSE 72; RESP 18; TEMP 36.2; O2SAT 97; BMI 22.6
[2021-09-23 09:34] VITALS: RESP 18
[2021-09-23 09:52] VITALS: BP 126/74; PULSE 84; RESP 18; TEMP 36.2; O2SAT 97
== END 2021-09-23 10:10 | disposition home or self-care (01) ==
LOC: OR 08:11
PROVIDERS: PCP Family Medicine; Visit Provider Ophthalmology
DX: H25.813 Combined forms of age-related cataract, bilateral (principal); H02.831 Dermatochalasis of right upper eyelid; H02.834 Dermatochalasis of left upper eyelid; F41.9 Anxiety disorder, unspecified; M19.90 Unspecified osteoarthritis, unspecified site; I48.91 Unspecified atrial fibrillation; K21.9 Gastro-esophageal reflux disease without esophagitis; E03.9 Hypothyroidism, unspecified; C56.9 Malignant neoplasm of unspecified ovary; Z88.6 Allergy status to analgesic agent; Z88.8 Allergy status to other drugs, medicaments and biological substances
CPT/HCPCS: 66984; J1642; V2632

== ENCOUNTER 2021-12-04 09:50 | Outpatient (CLI) | payer MEDICARE, SELFPAY ==
--- NOTE | 2021-12-04 09:54 | CT_ITS ---
FINAL REPORT CLINICAL HISTORY: FALLOPIAN TUBE CANCER COMPARISON: April 27, 2021 FINDINGS: Axial CT images of the chest were obtained with contrast. Coronal reformatted images were also obtained. This study was performed with techniques to keep radiation doses as low as reasonably achievable, (ALARA). Individualized dose reduction techniques using automated exposure control or adjustment of mA and/or KV according to the patient's size were employed. A right jugular port is present. There are right thyroid lobe nodules measuring up to 11 mm, stable. 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 There is no evidence of mediastinal or hilar mass or adenopathy. No axillary mass or adenopathy is identified. On the lung window images there is mild biapical scarring which is worse. There is a new nodular opacity measuring 12 mm in the medial right lung apex, scar versus neoplasm. There is mild bibasilar atelectasis or scarring. IMPRESSION: New 12 mm right lung apex nodular opacity, scar versus neoplasm. Follow-up chest CT may be helpful. Mild biapical scarring, worse. Right thyroid nodules. Reviewed, Interpreted and Dictated by Ildefonso Manzano III, MD Transcribed by Yolande Montiel Authenticated and . [facility]
--- NOTE | 2021-12-04 09:54 | CT_ITS ---
FINAL REPORT CLINICAL HISTORY: FALLOPIAN TUBE CA COMPARISON: April 27, 2021 FINDINGS: CT OF THE ABDOMEN AND PELVIS WITH CONTRAST Axial CT images of the abdomen and pelvis were obtained after the administration of IV contrast. Coronal reformatted images were also obtained and reviewed.This study was performed with techniques to keep radiation doses as low as reasonably achievable (ALARA). Individualized dose reduction techniques using automated exposure control or adjustment of mA and/or kV according to the patient's size were employed. Abdomen: The heart is normal in size. The liver has an unremarkable appearance, without evidence of mass or biliary ductal dilatation. The gallbladder is surgically absent. The spleen is unremarkable. No adrenal mass is present. The pancreas has an unremarkable appearance. The kidneys are normal, without evidence of mass or hydronephrosis. The aorta is normal in caliber. There is new moderate ascites with mild peritoneal wall thickening. There is widespread bowel wall thickening, nonspecific. There is new soft tissue in the omentum consistent with peritoneal metastatic disease. For example, there is an area along the right anterior abdomen wall measuring 24 mm transverse dimension. Pelvis: The appendix is partially obscured with fluid. There are postoperative changes of the bowel and right anterior pelvis. There is moderate amount of free fluid in the pelvis with areas of peritoneal thickening on the right. There is moderate urinary bladder wall thickening. There are multiple sigmoid diverticula without evidence of diverticulitis. There is no evidence of mass or adenopathy. There is no evidence of bowel obstruction. IMPRESSION: New moderate ascites. 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 Reviewed, Interpreted and Dictated by Ildefonso Manzano III, MD Transcribed by Yolande Montiel Authenticated and [facility]
[2021-12-04 10:40] LABS: Blood Urea Nitrogen 9 mg/dl (7-17); Estimated Glomerular Filt Rate 70 ml/min (>60); GFR (African American) 85 ML/MIN (>60)
== END 2021-12-04 11:15 | disposition home or self-care (01) ==
LOC: RAD 09:51 → INF 14:28
PROVIDERS: PCP Family Medicine; Visit Provider Obstetrics & Gynecology
DX: C57.00 Malignant neoplasm of unspecified fallopian tube (principal); Z45.2 Encounter for adjustment and management of vascular access device
CPT/HCPCS: 36415; 71260; 74177; 82565; 84520; J1642; Q9967

== ENCOUNTER 2021-12-11 19:24 | Emergency (ER) | payer MEDICARE, SELFPAY ==
[2021-12-11] VITALS (8 sets, daily range): BP systolic 105–131; BP diastolic 62–80; PULSE 64–85; RESP 16–18; TEMP 36.4; O2SAT 94–98; BMI 20.5
--- NOTE | 2021-12-11 19:46 | CT_ITS ---
PROCEDURE INFORMATION: Exam: CT Abdomen And Pelvis With Contrast Exam date and time: 12/11/2021 8:35 PM Age: 76 years old Clinical indication: Abdominal pain; Additional info: Abd pain TECHNIQUE: Imaging protocol: Computed tomography of the abdomen and pelvis with contrast. Radiation optimization: All CT scans at this facility use at least one of these dose optimization techniques: automated exposure control; mA and/or kV adjustment per patient size (includes targeted exams where dose is matched to clinical indication); or iterative reconstruction. Contrast material: ISOVUE; Contrast volume: 75 ml; Contrast route: IV; COMPARISON: CT ABDOMEN PELVIS W CON 12/04/2021 10:55 AM FINDINGS: Tubes, catheters and devices: Central venous catheter partially visualized with its tip in the right atrium. Lungs: Mild atelectasis in the lung bases. Heart: Heart size normal. Mild coronary artery calcification. Mediastinal space: The visualized distal esophagus is largely contracted without gross abnormality. Liver: Question mild generalized fatty infiltration of the liver. Normal contour. No mass lesions. No intrahepatic biliary ductal dilatation. Gallbladder and bile ducts: Normal. No calcified stones. No ductal dilation. Pancreas: Normal. No inflammatory changes or ductal dilation. Spleen: Granulomatous calcifications in the spleen without acute splenic abnormality. Adrenal glands: Normal. No adrenal mass. Kidneys and ureters: No acute abnormalities. No hydronephrosis or hydroureter. No urinary tract stones are identified. Stomach and bowel: The stomach is largely contracted without gross abnormality. The small bowel is nondilated. Mild generalized small bowel wall thickening and slight mucosal hyperenhancement with mild mesenteric edema, with fluid content in the proximal colon suggesting diarrheal state and suspected mild distal colonic wall thickening, suspicious for mild changes of enterocolitis. There is a right lower quadrant small bowel anastomosis without gross anastomotic complication. Mild diverticulosis involving the distal colon without evidence of acute diverticulitis. Appendix: The appendix is not identified. No secondary signs of appendicitis. Intraperitoneal space: Moderate ascites throughout the abdomen and pelvis, without substantial change in volume from 12/04/2021. Enhancing peritoneal nodularity is seen along the right lateral intrapelvic peritoneal margin and in the lower right iliac fossa, unchanged, concerning for peritoneal metastases. Vasculature: Moderate aortic calcification without aneurysm.Circumaortic left renal vein configuration noted. Lymph nodes: No adenopathy. Urinary bladder: The urinary bladder is partially contracted without gross abnormality. Reproductive: Prior hysterectomy. Bones/joints: No acute osseous abnormalities. Soft tissues: Chronic anterior midline abdominal wall scarring. No acute soft tissue abnormalities. IMPRESSION: 1. No significant change from 12/04/2021. 2. Moderate ascites throughout the abdomen and pelvis with peritoneal enhancement and enhancing peritoneal nodularity concerning for possible peritoneal metastasis again noted. 3. Changes in the small and large bowel concerning for generalized enterocolitis with no evidence of perforation or abscess. 4. Mild diverticulosis involving the distal colon without evidence of acute diverticulitis. 5. Additional nonemergent findings detailed above.
[2021-12-11 20:15] LABS: Basophils # 0.1 K/mm3 (0-0.2); Basophils % 1.2 % (0.1-2.0); Eosinophils # 0.2 K/mm3 (0.0-0.4); Eosinophils % 2.9 % (0.1-12.0); Hematocrit 35.4 % (37.0-47.0); Hemoglobin 11.5 g/dL (12.2-16.2); Lymphocytes # 1.1 K/mm3 (0.7-4.5); Lymphocytes % 17.9 % (10-50); Mean Corpuscular HGB Conc 32.4 g/dL (31.8-35.4); Mean Corpuscular Volume 80.1 fl (81-99); Mean Platelet Volume 7.1 fl (7.4-10.4); Monocytes # 0.6 K/mm3 (0.1-1.0); Monocytes % 9.7 % (1.7-9.3); Neutrophils # 4.4 K/mm3 (1.8-7.8); Neutrophils % 68.3 % (37.0-80.0); Platelet Count 326 K/mm3 (142-424); Red Blood Count 4.42 M/mm3 (4.20-5.40); Red Cell Distribution Width 14.9 % (11.5-17.5); White Blood Count 6.4 K/mm3 (4.8-10.8)
[2021-12-11 20:23] LABS: Alanine Aminotransferase 51 U/L (12-78); Albumin Level 3.2 g/dl (3.5-5.0); Alkaline Phosphatase 204 U/L (38-126); Amylase 47 U/L (30-110); Anion Gap 11.3 mEq/L (5-15); Aspartate Amino Transferase 102 U/L (14-36); Bilirubin,Total 0.3 mg/dl (0.2-1.3); Blood Urea Nitrogen 9 mg/dl (7-17); Calcium 8.7 mg/dl (8.4-10.2); Carbon Dioxide 27 mmol/L (22.0-30.0); Chloride 88 mmol/L (98-107); Creatinine Clearance Estimated 42 mL/min (50-200); Estimated Glomerular Filt Rate 82 ml/min (>60); GFR (African American) 99 ML/MIN (>60); Globulin 3.2 g/dL (1.3-3.2); Glucose 92 mg/dl (74-100); Potassium 4.3 mmoL/L (3.5-5.1); Sodium 122 mmol/L (136-145); Total Protein,Serum 6.4 g/dl (6.3-8.2)
--- NOTE | 2021-12-11 20:25 | HMH.EDNVD ---
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 The time I documented below is in addition to time spent performing reported procedures but includes the following listed in this critical care notation. Medical Decision Making - Medical Records Medical records reviewed: Yes: I reviewed the patient's medical records. - Scooter Inquiry Pt receiving controlled substance: No Vital Signs: 12/11/21 19:26 12/11/21 20:00 12/11/21 20:30 Temperature 97.5 F L Temperature Source Oral Pulse Rate 83 78 Pulse Rate [Right] 64 Respiratory Rate 16 Blood Pressure 130/75 127/75 Blood Pressure [Right Arm] 122/72 Blood Pressure Mean 88 93 Blood Pressure Mean [Right Arm] 88 02 Sat by Pulse Oximetry 97 97 98 12/11/21 21:00 12/11/21 21:30 Temperature Temperature Source Pulse Rate 85 81 Pulse Rate [Right] Respiratory Rate Blood Pressure 121/67 131/77 Blood Pressure [Right Arm] Blood Pressure Mean 89 89 Blood Pressure Mean [Right Arm] 02 Sat by Pulse Oximetry 95 97 - Lab Data Lab results reviewed: Yes: I reviewed the patient's lab results. Lab Results 12/11/21 20:03: WBC 6.4, RBC 4.42, Hgb 11.5 L, Hct 35.4 L, MCV 80.1 L, MCH 26.0 L, MCHC 32.4, RDW 14.9, Plt Count 326, MPV 7.1 L, Neut % (Auto) 68.3, Lymph % (Auto) 17.9, [place] % (Auto) 9.7 H, Eos % (Auto) 2.9, Baso % (Auto) 1.2, Neut # (Auto) 4.4, Lymph # (Auto) 1.1, [place] # (Auto) 0.6, Eos # (Auto) 0.2, Baso # (Auto) 0.1, ESR 99 H 12/11/21 20:03: Sodium 122 L, Potassium 4.3, Chloride 88 L, Carbon Dioxide 27, Anion Gap 11.3, BUN 9, Creatinine 0.70, Estimated Creat Clear 42, Estimated GFR 82, Est GFR ( Amer) 99, Glucose 92, Calcium 8.7, Total Bilirubin 0.3, AST 102 H, ALT 51, Alkaline Phosphatase 204 H, C-Reactive Protein 63.2 H, Total Protein 6.4, Albumin 3.2 L, Globulin 3.2, Albumin/Globulin Ratio 1.0 L, Amylase 47, Procalcitonin 0.145 12/11/21 20:03: Lipase 132 12/11/21 21:27: Urine Color Yellow, Urine Appearance Clear, Urine pH 7.0, Ur Specific [place] <= 1.005, Urine Protein Negative, Urine Glucose (UA) Negative, Urine Ketones Negative, Urine Blood Negative, Urine Nitrate Negative, Urine Bilirubin Negative, Urine Urobilinogen 0.2, Ur Leukocyte Esterase Negative Result diagrams: 12/11/21 20:03 12/11/21 20:03 Orders (Tests/Meds): ED MEDICATIONS Generic Name Dose Route Start Last Admin Trade Name Freq PRN Reason Stop Dose Admin Sodium Chloride 1,000 mls @ 999 mls/hr 12/11/21 20:00 12/11/21 20:09 Sod Chlor 0.9% 1000ml Bag IV 12/11/21 21:00 999 mls/hr .Q1H1M SIMIN Administration Discontinued Medications Generic Name Dose Route Start Last Admin Trade Name Freq PRN Reason Stop Dose Admin Iopamidol 75 ml 12/11/21 20:39 12/11/21 20:40 Iopamidol-370 (76%);100ml Bottle IV 12/11/21 20:40 75 ml ONCE ONE Administration Morphine Sulfate 4 mg 12/11/21 20:06 12/11/21 20:09 Morphine 4mg/Ml Syringe IV 12/11/21 20:07 4 mg ONCE ONE Administration Ondansetron HCl 4 mg 12/11/21 20:06 12/11/21 20:09 Ondansetron 4mg/2ml Vial IV 12/11/21 20:07 4 mg ONCE ONE Administration Sodium Chloride 10 ml 12/11/21 20:39 12/11/21 20:40
[2021-12-11 20:28] LABS: C-Reactive Protein 63.2 mg/L (0-4)
--- NOTE | 2021-12-11 20:35 | PC.NURSE ---
Pt gone to RAD for CT
[2021-12-11 20:41] LABS: Erythrocyte Sedimentation Rate 99 mm/hr (0-30)
[2021-12-11 20:43] LABS: Procalcitonin 0.145 ng/mL (0.0-2.0)
[2021-12-11 21:18] LABS: Lipase 132 U/L (23-300)
--- NOTE | 2021-12-11 21:20 | PC.NURSE ---
PATIENT AMBULATED TO BATHROOM WITH ASSISTANCE WITH Elian GOLD RN.
[2021-12-11 21:30] LABS: Microscopic, Urine URINE MICROSCOPIC (MICROSCOPIC)
[2021-12-11 21:34] LABS: Appearance,Urine CLEAR (Clear); Bilirubin,Urine Negative (Negative); Blood, Urine Negative (Negative); Color,Urine YELLOW (Yellow); Glucose,Urine (UA) Negative (Negative); Ketones,Urine Negative (Negative); Leukocyte Esterase,Urine Negative (Negative); Nitrate,Urine Negative (Negative); Protein,Urine Negative (Negative); Specific Gravity, Urine <= 1.005 (1.005-1.030); Urobilinogen,Urine 0.2 EU/dl (0.2)
--- NOTE | 2021-12-11 21:39 | PC.NURSE ---
pt assisted to BR @ this time . pain has been relieved by pain meds per JUL.
--- NOTE | 2021-12-11 22:22 | PC.NURSE ---
at updating family on POC
--- NOTE | 2021-12-11 22:24 | PC.NURSE ---
Dr. Elder pageluis
--- NOTE | 2021-12-11 22:31 | PC.NURSE ---
twyla on phone with dr keenan
== END 2021-12-11 23:05 | disposition home or self-care (01) ==
PROVIDERS: Emergency Provider Emergency Medicine; PCP Family Medicine
DX: C79.60 Secondary malignant neoplasm of unspecified ovary (principal); E87.1 Hypo-osmolality and hyponatremia; R11.0 Nausea; R10.84 Generalized abdominal pain
CPT/HCPCS: 74177; 80053; 81001; 82150; 83690; 84145; 85025; 85651; 86140; 96361; 96374; 96375; 99284; J1642; J2405; Q9967

== ENCOUNTER 2022-01-23 08:22 | Emergency (ER) | payer OTHER, MEDICARE, SELFPAY ==
[2022-01-23] VITALS (12 sets, daily range): BP systolic 105–129; BP diastolic 67–85; PULSE 87–108; RESP 14–22; TEMP 36.6–36.8; O2SAT 93–98; BMI 19.7
--- NOTE | 2022-01-23 08:42 | CT_ITS ---
FINAL REPORT TECHNIQUE: After the administration of oral and intravenous contrast, axial images were obtained through the abdomen and pelvis by computed tomography. The study was performed with techniques to keep radiation dose as low as reasonably achievable, (ALARA). Individual dose reduction techniques using automated exposure control or adjustment of mA and/or kV according to the patient's size were employed. CLINICAL HISTORY: ovarian cancer, severe abd pain COMPARISON: December 11, 2021 FINDINGS: Abdomen: There is atelectasis in the right lung base. There is moderate ascites throughout the upper abdomen that has increased since prior exam. The the ascites layers to a depth of 2.8 cm. There is a low-attenuation focus in the inferior right lobe of the liver that measures 1.4 cm. This is new since the prior exam and is best seen on image 47 of series 3. The gallbladder is surgically absent. The spleen, pancreas, adrenals and kidneys appear unremarkable. The aorta is normal in caliber. Pelvis: There are multiple fluid-filled abnormally dilated loops of proximal small bowel. The bowel loops measure up to 3.0 cm in diameter. The distal small bowel is decompressed. The pattern is concerning for a mid to distal small bowel obstruction. There is a new drain identified entering the midline anterior pelvis and is probably related to a tunneled peritoneal drainage catheter. The appendix is not identified. The urinary bladder is unremarkable. IMPRESSION: Worsening ascites. New low-density lesion in the right lobe of the liver. A metastasis cannot be excluded. Abnormally dilated loops of proximal and mid small bowel with pattern concerning for mechanical obstruction. Interval placement of peritoneal drainage catheter. Reviewed, Interpreted and Dictated by Romie Kay MD Transcribed by Victoria Vasquez Authenticated and [facility]
--- NOTE | 2022-01-23 08:45 | HMH.EDABDPAI ---
Discharge Plan Disposition Patient Disposition: Xfer Short-Term Hosp Condition: Fair Chief Complaint: Abdominal Pain Prescriptions Prescriptions: No Action omeprazole 40 mg capsule,delayed release(DR/EC) 40 mg PO DAILY Galzin 25 mg (zinc) capsule 25 mg PO DAILY trazodone 50 mg tablet 50 mg PO HS fluticasone propionate 9.9 ML spray,suspension 1 spray NS DAILY metoprolol tartrate 25 MG tablet 25 mg PO DAILY levothyroxine 25 MCG tablet 12.5 mcg PO DAILY ondansetron 8 MG tablet,disintegrating 8 mg PO TIDP PRN (Reason: Nausea) diazepam 5 MG tablet 5 mg PO DAILYP PRN (Reason: Anxiety) gabapentin 300 mg capsule 300 mg PO QID Referrals Referrals: Tyson Sanchez MD [Primary Care Provider] - Enter time for follow up Clinical Impressions Clinical Impression: Complete obstruction of small intestine Stand Alone Forms Stand Alone Forms: Transfer Record - ED Discharge ED Provider: Usman Hayes Abdominal Pain HPI General Chief Complaint: Abdominal Pain Stated Complaint: stomach cramps from cancer Time Seen by Provider: 01/23/22 08:50 Mode of Arrival: Wheelchair Limitations: No Limitations Description of Symptoms (Recalled from ER Triage Doc. by RN): Pt advises that she has a current dx of ovarian cancer x2 years. States that she woke up this AM at approx 0430 with severe pain throughout abd. Pt has drain present in Rt lower abd and advises that assisted with draining fluid off yesterday with approx 3-350mL output. History of Present Illness HPI narrative: Patient complains of severe abdominal pain starting at 4 AM. She has been vomiting, no diarrhea, no fever. She had similar severe pain about 10 days ago. She is on oxycodone for cancer pain and has had 2 doses since the pain came on at 4 AM, but vomited them up. She says that she knows it is due to her ovarian cancer growing. She says that she was diagnosed with ovarian cancer about 2 years ago. She had surgery to remove a large tumor as well as 3 bowel resections and then had chemotherapy that ended in March 2021. In September they discovered some recurrence of cancer, she had a new type of oral chemotherapy for 2 doses but this was stopped because it was not having an effect. She has been treated at [facility] [place] in [place]. After her recent chemotherapy failed, she was told that she was too weak to consider other treatments at that time, but if she regains strength other options might be considered. She is enrolled in hospice. Hospice has started steroids for her appetite and both her appetite and strength have improved. She spoke with her oncologist yesterday and they were supposed to schedule her an appointment. She also is going to see Dr. Eddy here for second opinion. Related Data Home Medications Medication Instructions Recorded Confirmed omeprazole 40 mg capsule,delayed 40 mg PO DAILY GERD 12/09/18 01/23/22 release diazepam 5 mg tablet 5 mg PO DAILYP PRN Anxiety 04/28/21 01/23/22 fluticasone propionate 50 1 spray NS DAILY Allergy symptoms 04/28/21 01/23/22 mcg/actuation nasal spray,suspension levothyroxine 25 mcg tablet 12.5 mcg PO DAILY THYROID 04/28/21 01/23/22 metoprolol tartrate 25 mg tablet 25 mg PO DAILY arrythmia 04/28/21 01/23/22 ondansetron 8 mg disintegrating 8 mg PO TIDP PRN Nausea 04/28/21 01/23/22 tablet zinc acetate 25 mg (zinc) capsule 25 mg PO DAILY Supplement 07/18/21 01/23/22 (Galzin) gabapentin 300 mg capsule 300 mg PO QID neuropathy 08/29/21 01/23/22 trazodone 50 mg tablet 50 mg PO HS sleep 08/29/21 01/23/22 Allergies Allergy/AdvReac Type Severity Reaction Status Date / Time hyoscyamine Allergy Unknown I-RASH Verified 09/09/21 08:47 menthol Allergy Unknown NA-NAUSEA Verified 09/09/21 08:47 methyl salicylate Allergy Unknown NA-NAUSEA Verified 09/09/21 08:47 codeine Allergy Verified 09/09/21 08:47 [facility] Medical History (Updated
--- NOTE | 2022-01-23 09:00 | PC.NURSE ---
Called 's office to let them know patient is in the ER and will not be able to make it to her doctor's appointment today
--- NOTE | 2022-01-23 09:02 | PC.NURSE ---
Pt resting at this time after pain med administration. at bs and family member on phone.
[2022-01-23 09:07] LABS: Basophils # 0.1 K/mm3 (0-0.2); Basophils % 0.9 % (0.1-2.0); Eosinophils # 0.1 K/mm3 (0.0-0.4); Eosinophils % 0.5 % (0.1-12.0); Hematocrit 41.7 % (37.0-47.0); Hemoglobin 13.3 g/dL (12.2-16.2); Lymphocytes # 3.7 K/mm3 (0.7-4.5); Lymphocytes % 31.6 % (10-50); Mean Corpuscular HGB Conc 31.9 g/dL (31.8-35.4); Mean Corpuscular Hemoglobin 26.4 pg (27.0-31.2); Mean Corpuscular Volume 82.8 fl (81-99); Mean Platelet Volume 7.5 fl (7.4-10.4); Monocytes # 0.6 K/mm3 (0.1-1.0); Monocytes % 5.2 % (1.7-9.3); Neutrophils # 7.3 K/mm3 (1.8-7.8); Neutrophils % 61.8 % (37.0-80.0); Platelet Count 384 K/mm3 (142-424); Red Blood Count 5.03 M/mm3 (4.20-5.40); Red Cell Distribution Width 16.9 % (11.5-17.5); White Blood Count 11.9 K/mm3 (4.8-10.8)
[2022-01-23 09:12] LABS: Alanine Aminotransferase 135 U/L (12-78); Albumin Level 3.1 g/dl (3.5-5.0); Albumin/Globulin Ratio 1.1 (1.1-1.8); Alkaline Phosphatase 254 U/L (38-126); Amylase 49 U/L (30-110); Anion Gap 10.5 mEq/L (5-15); Aspartate Amino Transferase 150 U/L (14-36); Bilirubin,Total 0.2 mg/dl (0.2-1.3); Blood Urea Nitrogen 14 mg/dl (7-17); Calcium 9.3 mg/dl (8.4-10.2); Carbon Dioxide 30 mmol/L (22.0-30.0); Chloride 93 mmol/L (98-107); Creatinine Clearance Estimated 41 mL/min (50-200); Estimated Glomerular Filt Rate 82 ml/min (>60); GFR (African American) 99 ML/MIN (>60); Globulin 2.9 g/dL (1.3-3.2); Glucose 95 mg/dl (74-100); Lipase 62 U/L (23-300); Potassium 3.5 mmoL/L (3.5-5.1); Sodium 130 mmol/L (136-145)
[2022-01-23 09:24] LABS: Lactic Acid 4.3 mmol/L (0.7-2.1)
--- NOTE | 2022-01-23 09:25 | PC.NURSE ---
lab called with critical lactic of 4.3 MD AWARE
--- NOTE | 2022-01-23 09:31 | XR_ITS ---
FINAL REPORT CLINICAL HISTORY: weakness COMPARISON: November 01, 2020 FINDINGS: There has been interval placement of a right chest port. Port catheter tip resides in the SVC. The heart size is normal. There is a density identified in the right hilar region that is new since the previous exam and is concerning for the possibility of a right hilar adenopathy. There is no pneumothorax. There is no osseous abnormality. IMPRESSION: Right hilar region density concerning for possibility of hilar adenopathy. A chest CT may be helpful to further evaluate. Reviewed, Interpreted and Dictated by Romie Kay MD Transcribed by Victoria Vasquez Authenticated and [facility]
--- NOTE | 2022-01-23 09:32 | PC.NURSE ---
ER MD notified of lactic acid 4.3 pt meets SIRS criteria and has organ dysfunction with lactic acid result. ER MD gave verbal order for cxr
--- NOTE | 2022-01-23 09:49 | PC.NURSE ---
pt return from x ray up to bathroom
[2022-01-23 10:07] LABS: Microscopic, Urine URINE MICROSCOPIC (MICROSCOPIC)
[2022-01-23 10:09] LABS: Appearance,Urine CLEAR (Clear); Bilirubin,Urine Negative (Negative); Blood, Urine Negative (Negative); Color,Urine YELLOW (Yellow); Glucose,Urine (UA) Negative (Negative); Ketones,Urine Negative (Negative); Leukocyte Esterase,Urine 1+ (Negative); Nitrate,Urine Negative (Negative); PH,Urine 7.5 (5.0-8.5); Protein,Urine Negative (Negative)
[2022-01-23 10:23] LABS: Bacteria,Urine Trace /lpf; Squamous Epithelial Cell,Urine Occasional #/hpf (0-5); WBC,Urine Occasional #/hpf (0-3)
[2022-01-23 10:49] LABS: Coronavirus 19, PCR Not Detected (NotDetected); Influenza A, PCR Not Detected (NotDetected); Influenza B, PCR Not Detected (NotDetected)
--- NOTE | 2022-01-23 11:17 | PC.NURSE ---
's office has been contacted about patient. is currently out of office but is heading back. On hold with office
--- NOTE | 2022-01-23 11:22 | PC.NURSE ---
on the phone with
--- NOTE | 2022-01-23 11:31 | PC.NURSE ---
LEE WHITE speaking with Dr. Shrestha who is metal bonding press operator for Dr. Sanchez
--- NOTE | 2022-01-23 11:35 | PC.NURSE ---
contacting [facility] per ER request
--- NOTE | 2022-01-23 11:38 | PC.NURSE ---
contacted radiology to request they powershare images with [facility] (per [facility] request), spoke with rosa maria.
--- NOTE | 2022-01-23 11:44 | PC.NURSE ---
LEE WHITE speaking with [facility]
--- NOTE | 2022-01-23 11:58 | PC.NURSE ---
Received call back from . They advised that pt has a bed assignment of Rm [id number] on the [facility] Unit. They stated that the room still needs to be cleaned and to give about a hour before calling report to [phone].
--- NOTE | 2022-01-23 12:01 | XR_ITS ---
FINAL REPORT CLINICAL HISTORY: ng placement COMPARISON: 01/23/2022 FINDINGS: SINGLE-VIEW CHEST The heart size is normal. The mediastinum is normal. The lungs are clear. There is no pneumothorax. NG tube tip terminates in the stomach. There is a chest port at the junction of the SVC and right atrium. IMPRESSION: NG tube is in the stomach. Reviewed, Interpreted and Dictated by Romie Kay MD Transcribed by Patricia Castillo Authenticated and [facility]
--- NOTE | 2022-01-23 12:48 | PC.NURSE ---
checked on pt at this time, family at BS. States no needs at this time, will continue to monitor
[2022-01-23 13:03] LABS: Reflex Lactic Add Lactic Reflex
--- NOTE | 2022-01-23 13:21 | PC.NURSE ---
drained peritoneal fluid from abdomen. 200cc dark yellow fluid noted
--- NOTE | 2022-01-23 13:43 | PC.NURSE ---
[facility] has been called
--- NOTE | 2022-01-23 13:45 | PC.NURSE ---
Called report to Pippa at [facility] at [facility]. Called [facility] for transfer.
[2022-01-23 13:54] LABS: Lactic Acid Follow Up (RFLX 1) 2.6 mmol/L (0.7-2.1)
[2022-01-23 15:25] LABS: Reflex Lactic (2 hrs) Add Lactic Reflex
== END 2022-01-23 14:00 | disposition short-term general hospital (02) ==
PROVIDERS: Emergency Provider Emergency Medicine; PCP Family Medicine
DX: K56.609 Unspecified intestinal obstruction, unspecified as to partial versus complete obstruction (principal); R18.8 Other ascites; C56.9 Malignant neoplasm of unspecified ovary; R53.1 Weakness; R42 Dizziness and giddiness; R11.10 Vomiting, unspecified; Z20.822 Contact with and (suspected) exposure to COVID-19; I10 Essential (primary) hypertension; M79.7 Fibromyalgia; I25.10 Atherosclerotic heart disease of native coronary artery without angina pectoris; E03.9 Hypothyroidism, unspecified; M48.062 Spinal stenosis, lumbar region with neurogenic claudication; M54.30 Sciatica, unspecified side; Z79.01 Long term (current) use of anticoagulants; Z79.51 Long term (current) use of inhaled steroids; Z79.899 Other long term (current) drug therapy; Z88.5 Allergy status to narcotic agent; Z88.8 Allergy status to other drugs, medicaments and biological substances; Z92.21 Personal history of antineoplastic chemotherapy
CPT/HCPCS: 71045; 74177; 80053; 81001; 82150; 83605; 83690; 85025; 87040; 87070; 87086; 87205; 96361; 96374; 96375; 99285; C9803; J2405; Q9967; U0003; U0005

== ENCOUNTER 2022-02-05 06:10 | Inpatient (IN) | payer OTHER, SELFPAY ==
[2022-02-05] VITALS (16 sets, daily range): BP systolic 97–129; BP diastolic 56–78; PULSE 113–131; RESP 10–20; TEMP 36.6–38; O2SAT 94–99; BMI 20.5
--- NOTE | 2022-02-05 06:20 | CT_ITS ---
FINAL REPORT TECHNIQUE: After the administration of intravenous contrast, axial images were obtained through the abdomen and pelvis by computed tomography. This study was performed with technique to keep radiation doses as low as reasonably achievable, (ALARA). Individualized dose reduction techniques using automated exposure control or adjustment of the MA and/or KV according to the patient's size were employed. CLINICAL HISTORY: known ovarian ca and acites, Severe R ABD pain COMPARISON: 01/23/2022 FINDINGS: Abdomen: The lung bases demonstrate worsening, small pleural effusions. There is mild bibasilar atelectasis. Fluid in the esophagus may represent reflux or stricture. The liver is normal in size and attenuation. Patient is status post cholecystectomy. The spleen is unremarkable. The adrenals are normal. The pancreas is unremarkable. There is mild, left hydroureteronephrosis worse from prior exam. The aorta is normal in caliber. There is a large amount of ascites in the abdomen and pelvis. There is mild, diffuse peritoneal wall thickening. Again seen are small, low-attenuation areas in the periphery of the right hepatic lobe versus along the hepatic surface. More inferior area measures 14 mm and is unchanged from prior exam. Findings are worrisome for metastasis. There is diffuse wall thickening of the bowel, nonspecific. Findings may represent edema. There is improved small bowel dilatation. A peritoneal drain is present. Stoppage changes are noted in the right abdomen. Pelvis: The appendix is not identified. The urinary bladder is unremarkable. Patient is status post hysterectomy. IMPRESSION: Fluid in the esophagus which may represent reflux or stricture. Worsening left hydroureteronephrosis. Large amount of ascites. Mild, diffuse peritoneal wall thickening and diffuse wall thickening of the bowel. Reviewed, Interpreted and Dictated by Ildefonso Manzano III, MD Transcribed by Krista Vaca Authenticated and [facility]
[2022-02-05 06:38] LABS: Basophils # 0.1 K/mm3 (0-0.2); Basophils % 0.5 % (0.1-2.0); Eosinophils # 0.1 K/mm3 (0.0-0.4); Eosinophils % 0.5 % (0.1-12.0); Hematocrit 40.3 % (37.0-47.0); Hemoglobin 12.3 g/dL (12.2-16.2); Lymphocytes # 3.3 K/mm3 (0.7-4.5); Lymphocytes % 21.1 % (10-50); Mean Corpuscular HGB Conc 30.7 g/dL (31.8-35.4); Mean Corpuscular Hemoglobin 24.9 pg (27.0-31.2); Mean Corpuscular Volume 81.3 fl (81-99); Mean Platelet Volume 7.9 fl (7.4-10.4); Monocytes # 0.6 K/mm3 (0.1-1.0); Monocytes % 3.7 % (1.7-9.3); Neutrophils # 11.7 K/mm3 (1.8-7.8); Neutrophils % 74.2 % (37.0-80.0); Platelet Count 386 K/mm3 (142-424); Red Blood Count 4.95 M/mm3 (4.20-5.40); Red Cell Distribution Width 16.8 % (11.5-17.5); White Blood Count 15.7 K/mm3 (4.8-10.8)
[2022-02-05 06:40] LABS: MANUAL DIFFERENTIAL MANUAL DIFFERENTIAL (MANUAL DIFF)
[2022-02-05 06:44] LABS: Amylase 43 U/L (30-110)
[2022-02-05 06:45] LABS: Alanine Aminotransferase 61 U/L (12-78); Albumin Level 2.7 g/dl (3.5-5.0); Alkaline Phosphatase 221 U/L (38-126); Anion Gap 9.1 mEq/L (5-15); Aspartate Amino Transferase 98 U/L (14-36); Blood Urea Nitrogen 13 mg/dl (7-17); Calcium 8.2 mg/dl (8.4-10.2); Carbon Dioxide 28 mmol/L (22.0-30.0); Chloride 95 mmol/L (98-107); Creatinine Clearance Estimated 42 mL/min (50-200); Estimated Glomerular Filt Rate 82 ml/min (>60); GFR (African American) 99 ML/MIN (>60); Globulin 2.7 g/dL (1.3-3.2); Glucose 80 mg/dl (74-100); Lipase 85 U/L (23-300); Potassium 4.1 mmoL/L (3.5-5.1); Sodium 128 mmol/L (136-145); Total Protein,Serum 5.4 g/dl (6.3-8.2)
[2022-02-05 06:49] LABS: Bilirubin,Total < 0.1 mg/dl (0.2-1.3); Lactic Acid 2.5 mmol/L (0.7-2.1)
[2022-02-05 06:50] LABS: C-Reactive Protein 46.4 mg/L (0-4)
[2022-02-05 07:04] LABS: Procalcitonin 0.236 ng/mL (0.0-2.0)
[2022-02-05 07:10] LABS: Erythrocyte Sedimentation Rate 31 mm/hr (0-30)
[2022-02-05 07:17] LABS: Anisocytosis 1+; Hypochromasia 1+; Lymphocytes % 29 % (10-50); Monocytes % 4 % (2-9); Neutrophils % 67 % (42-76); Ovalocytes 1+; Total Cells Counted 100
[2022-02-05 07:18] LABS: Platelet Estimate Slight Increase
--- NOTE | 2022-02-05 07:18 | HMH.EDABDPAI ---
Discharge Plan Disposition Patient Disposition: Admitted as Observation Condition: Fair Prescriptions Prescriptions: No Action omeprazole 40 mg capsule,delayed release(DR/EC) 40 mg PO DAILY Galzin 25 mg (zinc) capsule 25 mg PO DAILY trazodone 50 mg tablet 50 mg PO HS fluticasone propionate 9.9 ML spray,suspension 1 spray NS DAILY metoprolol tartrate 25 MG tablet 25 mg PO DAILY levothyroxine 25 MCG tablet 12.5 mcg PO DAILY ondansetron 8 MG tablet,disintegrating 8 mg PO TIDP PRN (Reason: Nausea) diazepam 5 MG tablet 5 mg PO DAILYP PRN (Reason: Anxiety) gabapentin 300 mg capsule 300 mg PO QID Referrals Follow up/Referrals: Tyson Sanchez MD [Primary Care Provider] - See instructions Clinical Impressions Clinical Impression: Ovarian malignant neoplasm Instructions Patient Instructions: DI for Acute Abdominal Pain Discharge ED Provider: Casey Sheffield Abdominal Pain HPI <Casey Sheffield MD - Last Filed: 02/05/22 09:09> General Chief Complaint: Abdominal Pain Stated Complaint: abdominal pain; cancer patient Time Seen by Provider: 02/05/22 07:18 Mode of Arrival: Wheelchair Source of Information: Patient, Spouse and Medical Record Limitations: Physical Limitations Description of Symptoms (Recalled from ER Triage Doc. by RN): Per pt's spouse, pt has ovarian cancer that is advanced and she woke up about an hour ago experiencing severe abdominal pain in her right lower abdomen that radiates across her abdomen. Pt went to bed without any pain. History of Present Illness HPI narrative: known ovarian cancer and has acute abd pain this am - has appt with dr wilkerson this am complaint: abdominal pain Onset (ago): hour(s) Consistency: constant Location: diffuse Severity: severe Associated symptoms: nausea Treatments prior to arrival: prescription analgesics Related Data Home Medications Medication Instructions Recorded Confirmed omeprazole 40 mg capsule,delayed 40 mg PO DAILY GERD 12/09/18 01/23/22 release diazepam 5 mg tablet 5 mg PO DAILYP PRN Anxiety 04/28/21 01/23/22 fluticasone propionate 50 1 spray NS DAILY Allergy symptoms 04/28/21 01/23/22 mcg/actuation nasal spray,suspension levothyroxine 25 mcg tablet 12.5 mcg PO DAILY THYROID 04/28/21 01/23/22 metoprolol tartrate 25 mg tablet 25 mg PO DAILY arrythmia 04/28/21 01/23/22 ondansetron 8 mg disintegrating 8 mg PO TIDP PRN Nausea 04/28/21 01/23/22 tablet zinc acetate 25 mg (zinc) capsule 25 mg PO DAILY Supplement 07/18/21 01/23/22 (Galzin) gabapentin 300 mg capsule 300 mg PO QID neuropathy 08/29/21 01/23/22 trazodone 50 mg tablet 50 mg PO HS sleep 08/29/21 01/23/22 Allergies Allergy/AdvReac Type Severity Reaction Status Date / Time hyoscyamine Allergy Unknown I-RASH Verified 09/09/21 08:47 menthol Allergy Unknown NA-NAUSEA Verified 09/09/21 08:47 methyl salicylate Allergy Unknown NA-NAUSEA Verified 09/09/21 08:47 codeine Allergy Verified 09/09/21 08:47 PFSH <Casey Sheffield MD - Last Filed: 02/05/22 09:09> PFSH Medical History (Updated 02/05/22 @ 09:09 by Casey Sheffield MD) Ascites Dizziness Neurogenic claudication Ovarian cancer Sciatic leg pain Social History (Updated 01/23/22 @ 14:07 by Usman Hayes MD) Smoking Status: Never smoker second hand exposure: No alcohol intake: never substance use type: denies use current occupational status: retired Travel in the last 8 weeks: None household members: spouse housing: house current occupational exposures/hazards: No caffeine: Yes <Casey Sheffield MD - Last Filed: 02/05/22 09:09> ROS Obtained: Yes unobtainable due to mental status Constitutional Constitutional: Denies fever(s) Gastrointestinal Gastrointestingal: Reports as per HPI, abdominal pain and nausea Physical Exam <Casey Sheffield MD - Last Filed: 02/05/22 09:09> General General appearance: lethargic Head He
--- NOTE | 2022-02-05 07:40 | PC.NURSE ---
checked on pt at this time, pt sleeping. Pt placed on child development assistant r/t HR of 129, will continue to monitor pt on 2L O2 per NC, per report from nurse consultant pt had dropped SaO2 while sleeping after pain medication administration. SaO2 98% on 2L per NC at this time, no distress noted. will continue to monitor
[2022-02-05 08:17] LABS: Coronavirus 19, PCR Not Detected (NotDetected); Influenza A, PCR Not Detected (NotDetected); Influenza B, PCR Not Detected (NotDetected)
--- NOTE | 2022-02-05 08:22 | PC.NURSE ---
LEE WHITE at
--- NOTE | 2022-02-05 08:25 | PC.NURSE ---
merrittrn from dr. fontana office called asking if pt would be able to make her appt at [address]. [address] Eddy is out of the office today but they are able to do video appts if needed but they will be rescheduling all of todays appts. Merritt requested we contact her back when pt POC is decided (d/c versus admission/transfer) so she can reschedule pts appt or whatever she needs to do and notify Dr. Eddy. Notified ER MD Hyaes of the above conversation.
--- NOTE | 2022-02-05 08:30 | PC.NURSE ---
pt resting resp even and easy. at bedside.
--- NOTE | 2022-02-05 08:30 | PC.NURSE ---
contacted radiology to check on status of CT read, radiology staff states reading is in final
--- NOTE | 2022-02-05 08:33 | PC.NURSE ---
back in room with vac supplies
--- NOTE | 2022-02-05 08:37 | PC.NURSE ---
preliminary report of CT given to ER at this time
[2022-02-05 09:03] LABS: Microscopic, Urine URINE MICROSCOPIC (MICROSCOPIC)
[2022-02-05 09:09] LABS: Appearance,Urine CLEAR (Clear); Bilirubin,Urine Negative (Negative); Blood, Urine Negative (Negative); Color,Urine YELLOW (Yellow); Glucose,Urine (UA) Negative (Negative); Ketones,Urine Negative (Negative); Leukocyte Esterase,Urine Negative (Negative); Nitrate,Urine Negative (Negative); PH,Urine 6.5 (5.0-8.5); Protein,Urine Negative (Negative); Specific Gravity, Urine <= 1.005 (1.005-1.030)
--- NOTE | 2022-02-05 09:17 | PC.NURSE ---
at bedside he brought pt's peritoneal drainage kit from home. currently draining clear yellow fluid
[2022-02-05 09:18] LABS: INR 0.99 (0.9-1.1); Prothrombin Time 10.7 seconds (10.1-12.5)
[2022-02-05 09:22] LABS: Bacteria,Urine Trace /lpf; Squamous Epithelial Cell,Urine Occasional #/hpf (0-5)
--- NOTE | 2022-02-05 09:30 | PC.NURSE ---
pt with shallow resp. somnolent. aware
--- NOTE | 2022-02-05 09:39 | PC.NURSE ---
ER DOCTOR ASKED FOR WHO WAS ON FOR DR ROJO. CONTACTED CATERING SERVICE MANAGER AND DR HELTON WIND TECHNICIAN, AWAITING ON HIM TO CALL BACK
--- NOTE | 2022-02-05 09:42 | PC.NURSE ---
DR HELTON HAS CALLED BACK TO SPEAK WITH ER DOCTOR
--- NOTE | 2022-02-05 09:42 | PC.NURSE ---
LEE WHITE speaking with Dr Elder who is ammonia refrigeration worker for Dr. Sanchez
--- NOTE | 2022-02-05 09:51 | PC.NURSE ---
notified care management of admission, spoke with keesha
--- NOTE | 2022-02-05 09:59 | PC.NURSE ---
contacting hospice to speak with orque sanchez to obtain medication list on pt.
--- NOTE | 2022-02-05 10:00 | PC.NURSE ---
faby nicholas at
--- NOTE | 2022-02-05 10:00 | PC.NURSE ---
spoke with triage nurse ALEISHA Hall at Hospice([facility] in [place]). Reports she will fax pt medication list to ER.
--- NOTE | 2022-02-05 10:08 | PC.NURSE ---
ROUNDED ON PT. PT COULD NOT SPEAK WITH ME SO ASKED THE SUBJECT IN THE ROOM WITH THEM IF THEY NEEDED ANYTHING AND THEY SAID THEY HAD NO NEEDS AT THIS TIME
[2022-02-05 10:35] LABS: Reflex Lactic Add Lactic Reflex
--- NOTE | 2022-02-05 10:53 | PC.NURSE ---
report called to floor
--- NOTE | 2022-02-05 10:59 | PC.NURSE ---
Yolanda MORAES drawing 2nd lactic from patients port site, lab sent
--- NOTE | 2022-02-05 11:08 | PC.NURSE ---
1300cc peritoneal fluid drained. tube clamped drainage bag removed.
--- NOTE | 2022-02-05 11:10 | PC.NURSE ---
ORIANA KHALIL FROM 2ND FLOOR CAME DOWN TO GET PT FOR ADMISSION
[2022-02-05 11:21] LABS: Lactic Acid Follow Up (RFLX 1) 1.9 mmol/L (0.7-2.1)
--- NOTE | 2022-02-05 11:28 | SW/DCPLANNER ---
Addendum entered by Pippa Salgado 02/06/22 09:45: The plan for this patient is to return home with Hospice services today. Addendum entered by Pippa Salgado 02/05/22 15:53: Erika moreno/ Hospice stated that patient/family does not [facility]. Family would prefer that patient discharge home once pain is controlled. Erika stated the plan is to change pain medication for this evening and to discharge patient home tomorrow morning. Erika will re-evaluate patient at [facility] tomorrow morning. Addendum entered by Pippa Salgado 02/05/22 11:42: Erika moreno/ [facility] will be onsite to evaluate this patient. Original Note: This patient is currently established with [facility]. I spoke with Kiana at [facility] and faxed updated patient information. Kiana has confirmed that admission is related to Hospice diagnosis.
--- NOTE | 2022-02-05 13:09 | EXP.HP ---
History of Present Illness *Admission Date: 02/05/22 *Reason for visit:: Abdominal pain *History of present illness: Ms. Freitas is a 76-year-old female with a known history of metastatic ovarian cancer. Her states she was just recently discharged from after an admission for a bowel obstruction, which was treated nonoperatively. He states she had been doing well since discharge and has been eating normally without any abdominal pain. She is currently followed by [facility] for her metastatic ovarian cancer. He states her oncologist told her there is nothing else they can do and she has been placed on hospice. Her states that had an appointment today with Dr. Eddy for a second opinion today, but it was canceled. He states she woke up this morning with horrific abdominal pain. She normally has quite a bit of ascites. She has a catheter that stays in place and her drains the peritoneal fluid every other day. He states he normally gets approximately 250 to 350 cc of fluid every other day. He did not do this yesterday. She was evaluated in the emergency room and had an abdominal and pelvic CT showing fluid in the esophagus which may represent reflux or stricture, worsening left hydroureteronephrosis, a large amount of ascites, and mild diffuse peritoneal wall thickening and diffuse wall thickening of the bowel. She was given Dilaudid for pain and after being given the Dilaudid, she became very sedated, her pupils were 2 mm, her mouth was open and she was mouth breathing, and she was tachycardic with a heart rate of 127. She continued to remain sedated and Narcan 0.5 mg was administered. Her brought in a vacuum bottle and drained 1 L of fluid from her abdomen. It did become softer but she still had pain when palpated. The drainage catheter was hooked to an IV bag to gravity to further drain. Her preferred she stay at [facility] rather than being transferred to [place]. The case was discussed with Dr. Elder and she was admitted. [facility] Medical History (Updated 02/05/22 @ 13:53 by GREG Blanco) Ascites Coronary artery disease Dizziness Fibromyalgia History of small bowel obstruction HTN (hypertension) Hyperlipidemia Hypothyroidism Neurogenic claudication Ovarian cancer Sciatic leg pain Surgical History (Updated 02/05/22 @ 13:24 by GREG Blanco) H/O: hysterectomy History of bowel resection History of cholecystectomy Family History (Updated 02/05/22 @ 13:24 by GREG Blanco) Family history of cancer Coronary artery disease Hypertension Social History (Updated 02/05/22 @ 12:00 by Yuliana De La Torre RN) Smoking Status: Never smoker second hand exposure: No alcohol intake: never substance use type: denies use current occupational status: retired Travel in the last 8 weeks: None household members: spouse housing: house current occupational exposures/hazards: No caffeine: Yes Review of Systems Review of Systems Review of systems:: unable to obtain Meds Home Medications and Allergies Home Medications Medication Instructions Recorded Confirmed Type omeprazole 40 mg capsule,delayed 40 mg PO DAILY acid reflux 12/09/18 02/05/22 History release levothyroxine 25 mcg tablet 12.5 mcg PO DAILY THYROID 04/28/21 02/05/22 History metoprolol tartrate 25 mg tablet 25 mg PO DAILY arrythmia 04/28/21 02/05/22 History ondansetron 8 mg disintegrating 8 mg PO TIDP PRN Nausea 04/28/21 02/05/22 History tablet gabapentin 300 mg capsule 600 mg PO HS neuropathy 08/29/21 02/05/22 History trazodone 50 mg tablet 50 - 100 mg PO HS sleep 08/29/21 02/05/22 History dexamethasone 4 mg tablet 4 mg PO DAILY Appetite 02/05/22 02/05/22 History famotidine 20 mg tablet 20 mg PO DAILY Reflux/Acid reflux 02/05/22 02/05/22 History oxycodone 5 mg tablet 5 - 10 mg PO Q6H PRN Pain 02/05/22 02/05/22 History prochlorperazine maleate 10 mg 10 mg PO T
--- NOTE | 2022-02-05 13:17 | P.CONPHA_ITS ---
[facility] Pharmacy VTE Monitoring Patient Demographics Admission date: 02/05/22 Report Date: 02/05/22 Time: 13:17 Patient Allergies hyoscyamine Allergy (Unknown, Verified 09/09/21 08:47) I-RASH menthol Allergy (Unknown, Verified 09/09/21 08:47) NA-NAUSEA methyl salicylate Allergy (Unknown, Verified 09/09/21 08:47) NA-NAUSEA codeine Allergy (Verified 09/09/21 08:47) Height: 1.68 m Weight: 57.635 kg VTE Risk Labs: VTE Related Lab Results Hgb 12.3 g/dL (12.2-16.2) 02/05/22 06:27 Hct 40.3 % (37.0-47.0) 02/05/22 06:27 Plt Count 386 K/mm3 (142-424) 02/05/22 06:27 PT 10.7 seconds (10.1-12.5) 02/05/22 06:27 INR 0.99 (0.9-1.1) 02/05/22 06:27 BUN 13 mg/dl (7-17) 02/05/22 06:27 Creatinine 0.70 mg/dl (0.52-1.04) 02/05/22 06:27 Estimated Creat Clear 42 mL/min (50-200) 02/05/22 06:27 VTE Score: 2 Clinical Trial Participant: No Prophylaxis VTE Prophylaxis Ordered?: Yes Types of VTE Prophylaxis: TEDS Knee High
--- NOTE | 2022-02-05 16:44 | PC.NURSE ---
PT IS RESTING IN BED WITH FAMILY AT BEDSIDE. PT HAS BEEN SLEEPING OFF AND ON T/O THE SHIFT. MEDICATED PER JUL FOR DISCOMFORT. PT AWAKENED EARLIER COMPLAINING OF ACID REFLUX WITH HOSPICE AND FAMILY AT BEDSIDE. NOTIFIED . PROTONIX 40 MG IV BID ORDERED. IT WAS DECIDED PER HOSPICE AND FAMILY FOR PT TO STAY THROUGH THE NIGHT AND TO BE DISCHARGED HOME WITH HOSPICE TOMORROW. PT'S STATED HE KNEW PT WANTED TO BE AT HOME AND LONG HER PAIN CAN BE MANAGED AT HOME THEY ARE COMFORTABLE WITH CARING FOR PT AT HOME. PT'S IV MORPHINE WAS SWITCHED TO ROXANOL 0.25 ML'S Q4H PRN PER TO MANAGE PAIN. PT HAS BEEN ABLE TO ANSWER SIMPLE YES OR NO QUESTIONS AND WAS ABLE TO RATE HER PAIN EARLIER 12/07. PT HAS RIGHT SIDED ABDOMINAL TENDERNESS. PERITONEAL DRAIN NOTED (300 ML'S EMPTIED AT 1700). BRUISING NOTED TO THE ABDOMEN. SWELLING NOTED TO BLE. WILL CONTINUE TO MONITOR.
[2022-02-06] VITALS: PULSE 120
[2022-02-06 03:52] VITALS: BP 120/67; PULSE 116; RESP 16; TEMP 37.6; O2SAT 96
--- NOTE | 2022-02-06 04:30 | PC.NURSE ---
Pt has been resting through the night with family by her side. Pt has moaned out in pain 2 times, treated prn per jul. Davenport in place and draining. has stayed the night. At beginning of shift, after pt received pain medication, pt could not take PO meds. BLE edema present. Pt O2 sat >95% on 2L NC. Abdomen tender, distended, and guarding. Call light in reach and working.
[2022-02-06 04:38] VITALS: PULSE 120
--- NOTE | 2022-02-06 07:34 | P.CONPHA_ITS ---
Pharmacy Intervention Comments: MEDICATION RECONCILIATION COMPLETED ON PATIENT USING EXTERNAL FILL HISTORY FROM PHARMACY AND LIST FROM [facility]. -CARINA CHIRINOSD
--- NOTE | 2022-02-06 07:34 | HMH.PHAINT1 ---
Pharmacy Intervention Comments: MEDICATION RECONCILIATION COMPLETED ON PATIENT USING EXTERNAL FILL HISTORY FROM PHARMACY AND LIST FROM [facility]. -CARINA CHIRINOSD
[2022-02-06 08:00] VITALS: BP 127/68; PULSE 112; PULSE 120; RESP 20; TEMP 37.6; O2SAT 97
--- NOTE | 2022-02-06 09:10 | PC.NURSE ---
SRNA; notified nurse of high heart rate
--- NOTE | 2022-02-06 09:20 | EXP.ACUTE.PN ---
Subjective *Date: 02/06/22 *Time: 09:20 Interval history: She is resting comfortably. She is responsive to conversation. We plan to discharge her today under hospice care. She is got more relief from the liquid morphine. Medical Exam Vital signs and Labs for Last 24 Hours: Temp Pulse Resp BP Pulse Ox 99.6 F 112 H 20 127/68 97 02/06/22 08:00 02/06/22 08:00 02/06/22 08:00 02/06/22 08:00 02/06/22 08:00 Laboratory Results - last 24 hr 02/05/22 06:27: PT 10.7, INR 0.99 02/05/22 08:45: Urine RBC None, Urine WBC None, Ur Squamous Epith Cells Occasional, Urine Bacteria Trace 02/05/22 11:01: Lactate 1.9 I & O for Labs for Last 24 Hours: Intake & Output 02/03/22 02/04/22 02/05/22 02/06/22 11:59 11:59 11:59 11:59 Intake Total 1806 / 1806 Output Total 600 / 600 Balance 1206 / 1206 Weight 127 lb 1 oz 127 lb 1 oz Head: Present normocephalic Neck: Present normal inspection Respiratory: Present CTA bilaterally; Absent respiratory distress, rhonchi, stridor or wheezes Cardiac: Present Reg Rate and Rhythm GI: Present soft, distention (Much improved) and hypoactive bowel sounds Rectal (female): Present deferred (female): Present deferred Extremities: Absent edema Skin: Present intact Neuro: Present Weakness and oriented x 3 Assessment and Plan *Assessment and plan (1) Ovarian metastasis: Status: Acute Qualifiers: Laterality: unspecified laterality Qualified Code(s): C79.60 - Secondary malignant neoplasm of unspecified ovary Category: Medical Code(s): C79.60 - Secondary malignant neoplasm of unspecified ovary (2) Abdominal pain: Status: Acute Qualifiers: Abdominal location: generalized Qualified Code(s): R10.84 - Generalized abdominal pain Category: Medical Code(s): R10.9 - Unspecified abdominal pain (3) History of malignant neoplasm of ovary: Status: Chronic Category: Medical Code(s): Z85.43 - Personal history of malignant neoplasm of ovary (4) HTN (hypertension): Status: Chronic Qualifiers: Hypertension type: unspecified Qualified Code(s): I10 - Essential (primary) hypertension Category: Medical Code(s): I10 - Essential (primary) hypertension (5) History of pulmonary embolism: Status: Acute Category: Medical Code(s): Z86.711 - Personal history of pulmonary embolism (6) Ascites: Status: Acute Category: Medical Code(s): R18.8 - Other ascites Plan Discharge to hospice care. Morphine ordered.
[2022-02-06 10:40] VITALS: BMI 20.4
--- NOTE | 2022-02-06 11:57 | PC.NURSE ---
PT WILL BE DISCHARGED HOME WITH HOSPICE. PT WAS COHERENT THIS MORNING AND ABLE TO ANSWER QUESTIONS AND FOLLOW COMMANDS. MEDICATED PER JUL FOR ABDOMINAL PAIN. PT HAS NOT WANTED TO EAT BUT HAS TAKEN SEVERAL SIPS OF WATER. TOLERATED TAKING PO MEDS THIS MORNING. AMBULANCE TRANSPORTED PT HOME. BRIANA (HOSPICE NURSE) NOTIFIED AND SHE STATED SHE WAS GOING TO [facility] PT'S MEDICATION AT CLINIC PHARMACY.
--- NOTE | 2022-02-08 23:10 | EXP.DC.SUM ---
General Admission date:: 02/05/22 Discharge date: 02/06/22 HPI HPI HPI: Ms. Freitas is a 76-year-old female with a known history of metastatic ovarian cancer. Her states she was just recently discharged from after an admission for a bowel obstruction, which was treated nonoperatively. He states she had been doing well since discharge and has been eating normally without any abdominal pain. She is currently followed by [facility] for her metastatic ovarian cancer. He states her oncologist told her there is nothing else they can do and she has been placed on hospice. Her states that had an appointment today with Dr. Eddy for a second opinion today, but it was canceled. He states she woke up this morning with horrific abdominal pain. She normally has quite a bit of ascites. She has a catheter that stays in place and her drains the peritoneal fluid every other day. He states he normally gets approximately 250 to 350 cc of fluid every other day. He did not do this yesterday. She was evaluated in the emergency room and had an abdominal and pelvic CT showing fluid in the esophagus which may represent reflux or stricture, worsening left hydroureteronephrosis, a large amount of ascites, and mild diffuse peritoneal wall thickening and diffuse wall thickening of the bowel. She was given Dilaudid for pain and after being given the Dilaudid, she became very sedated, her pupils were 2 mm, her mouth was open and she was mouth breathing, and she was tachycardic with a heart rate of 127. She continued to remain sedated and Narcan 0.5 mg was administered. Her brought in a vacuum bottle and drained 1 L of fluid from her abdomen. It did become softer but she still had pain when palpated. The drainage catheter was hooked to an IV bag to gravity to further drain. Her preferred she stay at [facility] rather than being transferred to [place]. The case was discussed with Dr. Elder and she was admitted. Hospital Course Hospital Course Hospital Course: The patient was given Narcan in the ER and admitted for further evaluation and treatment as well as monitoring. The hospice nurse came to see the patient while in the hospital. She was given liquid morphine and got much more relief and was able to rest comfortably. By 02/06/22, she was stable to be discharged into the care of hospice. Exam Data for Last 24 hours Vital signs and Labs for Last 24 Hours: Temp Pulse Resp BP Pulse Ox 99.6 F 112 H 20 127/68 97 02/06/22 08:00 02/06/22 08:00 02/06/22 08:00 02/06/22 08:00 02/06/22 08:00 I & O for Last 24 hours: Intake & Output 02/06/22 02/07/22 02/08/22 02/09/22 11:59 11:59 11:59 11:59 Intake Total 1806 / 1806 Output Total 600 / 700 100 / 100 Balance 1206 / 1106 -100 / -100 Weight 126 lb 15.78 oz Narrative: Constitutional Constitutional: obtunded *Routine HEENT Exam Head: Present normocephalic and atraumatic Eye: Present PERRL ENT: Present mucous membranes dry *Routine Neck Exam Neck: Present supple *Routine Respiratory Exam Respiratory: Present rhonchi *Routine Cardiovascular Exam Cardiovascular: Present RRR and tachycardia *Routine Abdominal Exam Abdominal: Present soft, normoactive bowel sounds, tenderness (Grimaces with palpation) and distended (Drain in place ) *Routine Rectal Exam Rectal:: deferred *Routine Genitalia Exam Genitalia:: deferred *Routine Extremities Exam Extremities: Present edema (trace bilateral LE's); Absent cyanosis or clubbing *Routine Skin Exam Skin: Present intact *Routine Neurological Exam Neurological: Present altered mental status Results Data Completed and Pending Labs on day of discharge: Preliminary micro results at discharge 02/05/22 06:22 Blood Culture - Preliminary Blood NO GROWTH AFTER 48 HOURS 02/05/22 06:22 Blood Culture - Preliminary Blood NO GROWTH AFTER 48 HOURS DS: Diagnosis
== END 2022-02-06 12:01 | disposition hospice, home (50) | DRG 755 ==
LOC: ER 09:50 → 2ND 12:26
PROVIDERS: Emergency Medicine; Admitting Provider Family Medicine; Emergency Provider Emergency Medicine; PCP Family Medicine; Visit Provider Family Medicine
DX: C56.9 Malignant neoplasm of unspecified ovary (principal); C79.9 Secondary malignant neoplasm of unspecified site; E87.1 Hypo-osmolality and hyponatremia; M79.7 Fibromyalgia; E78.2 Mixed hyperlipidemia; I25.10 Atherosclerotic heart disease of native coronary artery without angina pectoris; Z86.711 Personal history of pulmonary embolism; E03.9 Hypothyroidism, unspecified
CPT/HCPCS: 51702; 74177; 80053; 81001; 82150; 83605; 83690; 84145; 85007; 85025; 85610; 85651; 86140; 87040; 99285; C9803; J1642; J2310; Q9967; U0003; U0005